=== PATIENT | female | born 1940 | race Caucasian/White ===

== ENCOUNTER → 2021-03-15 11:55 | Outpatient (CLI) | payer MEDICARE, SELFPAY ==
--- NOTE | ~2021-03-15 | XR_ITS ---
EXAMINATION: XR chest 2V DATE: 03/15/2021 12:32 INDICATION: Pacemaker insertion TECHNIQUE: PA and lateral views of the chest are obtained. COMPARISON: None available FINDINGS: The lungs are free of acute opacities. There is no pleural effusion or pneumothorax. The ca rdiomediastinal silhouette is normal. There is moderate thoracic spondylosis. A dual-lead cardiac pac emaker of the left chest wall ends with leads in expected locations. There is an old healed fracture of the left proximal humerus. Healed right-sided rib fractures are also noted. Surgical clips in the right upper quadrant are likely from prior cholecystectomy. IMPRESSION: 1. No acute cardiopulmonary abnormality. Reviewed, dictated and finalized at location A.
== END ==
DX: R06.09 Other forms of dyspnea (principal); Z95.0 Presence of cardiac pacemaker
CPT/HCPCS: 71046

== ENCOUNTER 2022-03-13 10:18 | Emergency (ER) | payer MEDICARE, SELFPAY ==
--- NOTE | ~2022-03-13 | XR_ITS ---
EXAMINATION: XR shoulder RT min 2V DATE: 03/13/2022 10:48 INDICATION: Right shoulder injury. TECHNIQUE: 4 views of right shoulder were obtained. COMPARISON: None. FINDINGS: Bone alignment is normal. No acute fracture. There are old healed fractures of multiple rig ht-sided ribs. There is mild osteoarthritis of glenohumeral joint and acromioclavicular joint. IMPRESSION: 1. Mild polyarticular osteoarthritis. Reviewed, dictated and finalized at location A.
[2022-03-13 10:32] VITALS: BP 140/54; PULSE 60; RESP 18; TEMP 36.3; O2SAT 100
--- NOTE | 2022-03-13 10:47 | ED.UPPEXIN ---
HPI - Extremity Injury (Upper) General Chief Complaint: Extremity Injury, Upper Stated Complaint: Fall Injury/Right Shoulder Time Seen by Provider: 03/13/22 10:47 Source: patient, RN notes reviewed and old records reviewed Mode of arrival: ambulatory Limitations: no limitations History of Present Illness HPI narrative: 81-year-old female who presents to [facility] with complaints of injury to her right shoulder which occurred on the 11 of March when she fell between bed and dresser. Patient reports pain to the AC joint region of her shoulder and the upper arm region with discomfort when moving her arm up or down.Patient states that she has no tingling or numbness to her right arm with strong pulses present to right arm, has full mobility of wrist, elbow, and hand of right extremity. Patient reports that she has been taking Tylenol for her discomfort. MD complaint: injury to: right and shoulder Onset (ago): day(s) (2) Place: home Treatments prior to arrival: other (tylenol) Related Data Home Medications Medication Instructions Recorded Confirmed amitriptyline 25 mg tablet tablet 03/13/22 amlodipine 10 mg tablet tablet 03/13/22 ascorbic acid (vitamin C) 100 mg 100 mg PO DAILY 03/13/22 03/13/22 tablet cholecalciferol (vitamin D3) 10 03/13/22 mcg (400 unit) tablet latanoprost 0.005 % eye drops drp 03/13/22 levothyroxine 100 mcg tablet tablet 03/13/22 lisinopril 20 mg tablet tablet 03/13/22 magnesium tablet PO 03/13/22 omega 0-rnr-xov-fish oil 1,000 mg cap PO 03/13/22 (120 mg-180 mg) capsule pravastatin 10 mg tablet tablet 03/13/22 Allergies Allergy/AdvReac Type Severity Reaction Status Date / Time gemfibrozil Allergy Intermediate Hives / Verified 04/28/16 10:38 Red Face Review of Systems Review of Systems: CONSTITUTIONAL: Denies fever, chills, or sweats. EYES: Denies visual changes, redness, or discharge. ENT: Denies rhinorrhea, congestion, sore throat, or otalgia. CARDIOVASCULAR: Denies chest pain, palpitations, or edema. RESPIRATORY: Denies cough or dyspnea. GASTROINTESTINAL: Denies abdominal pain, nausea, vomiting, or diarrhea. GENITOURINARY: Denies dysuria or hematuria. SKIN: Denies rash or itching. MUSCULOSKELETAL: Denies back pain,positive for right shoulder pain, or myalgia. NEUROLOGIC: Denies headache, numbness, or weakness. PSYCHIATRIC: Denies anxiety or depression. [facility] Past Medical History Medical History (Updated 03/14/22 @ 11:19 by Queta Egan NP) Elevated cholesterol Hypertension Hypothyroid IBS (irritable bowel syndrome) Pacemaker Surgical History Surgical History (Updated 03/14/22 @ 11:16 by Queta Egan NP) H/O shoulder surgery left related to fracture H/O: hysterectomy Hx of cholecystectomy Social History Social History (Updated 03/14/22 @ 11:13 by Queta Egan NP) Smoking status: Never smoker Alcohol intake: current Alcohol use details: rare social Substance use: never Living arrangements: with family Occupation/Education: retired Gender identity (if verbalized by the patient): Female Comments At time of signature agree with nursing documentation of past medical, surgical, social and family history. There is no relevant family history pertinent to presenting complaint Exam Narrative: GENERAL: Well-appearing, well-nourished, and in no acute distress. HEAD: Normocephalic, atraumatic. EYES: PERRLA and EOMI. ENT: Nares clear, no rhinorrhea or epistaxis. Mucous membranes moist.TM's normal with good light reflex, throat pink with no lesions exudates or tonsil swelling NECK: Supple.no lymphadenopathy CHEST: Clear to auscultation. No respiratory distress.SAO2 100% on room air HEART: Regular rate and rhythm. No murmur heard. Normal peripheral pulses. ABDOMEN: Soft, nontender, nondistended, normal active bowel sounds. EXTREMITIES: Normal range of motion. No edema.Exception noted to right shoulder and upper arm region with tenderness
== END 2022-03-13 11:08 | disposition home or self-care (01) ==
PROVIDERS: Emergency Provider Registered Nurse
DX: S40.011A Contusion of right shoulder, initial encounter (principal); W19.XXXA Unspecified fall, initial encounter; E78.00 Pure hypercholesterolemia, unspecified; I10 Essential (primary) hypertension; E03.9 Hypothyroidism, unspecified; Z95.0 Presence of cardiac pacemaker
CPT/HCPCS: 73030; 99203; G0463

== ENCOUNTER 2023-01-05 17:07 | Emergency (ER) | payer MEDICARE, SELFPAY ==
[2023-01-05 17:16] VITALS: BP 158/54; PULSE 60; RESP 18; TEMP 36.4; O2SAT 100
--- NOTE | 2023-01-05 17:40 | ED.FEMALEGU ---
HPI - Female Genitourinary General Chief complaint: Urogenital-Female Stated complaint: Urinary Problem Time Seen by Provider: 01/05/23 17:42 Source: patient, RN notes reviewed and old records reviewed Mode of arrival: ambulatory Limitations: no limitations History of Present Illness HPI Narrative: 82 year old female presents to [facility] with complaints of urinary frequency,burning with urination and medial lower abdominal discomfort since last night with symptoms increased today. Patient reports no known fevers, chills or sweats, denies any back pain or any CVA tenderness, reports no nausea,vomiting or diarrhea. Patient voices no vaginal discharge or any vaginal itching.Patient reports that she has had past UTI's with last one about 2 years ago. MD elicited complaint: UTI Pertinent past history: other (past UTI) Onset (ago): day(s) (last night) Location of symptoms: suprapubic Severity scale (1-10): 2 Quality of pain: burning Vaginal discharge: none Urinary symptoms: Dysuria and Frequency Related Data Home Medications Medication Instructions Recorded Confirmed amitriptyline 25 mg tablet 25 tablet PO DAILY 03/13/22 01/05/23 amlodipine 10 mg tablet 10 tablet PO DAILY 03/13/22 01/05/23 ascorbic acid (vitamin C) 100 mg 100 mg PO DAILY 03/13/22 01/05/23 tablet cholecalciferol (vitamin D3) 10 10 mcg PO DAILY 03/13/22 01/05/23 mcg (400 unit) tablet latanoprost 0.005 % eye drops See Rx Instructions .Route .COMPLEX 03/13/22 01/05/23 levothyroxine 100 mcg tablet 100 tablet PO DAILY 03/13/22 01/05/23 lisinopril 20 mg tablet 20 tablet PO BID 03/13/22 01/05/23 omega 3-umm-mqy-fish oil 1,000 mg 1 cap PO DAILY 03/13/22 01/05/23 (120 mg-180 mg) capsule pravastatin 10 mg tablet 10 tablet PO DAILY 03/13/22 01/05/23 vitamin E 268 mg (400 unit) capsule 268 mg PO DAILY 01/05/23 01/05/23 Allergies Allergy/AdvReac Type Severity Reaction Status Date / Time gemfibrozil Allergy Intermediate Hives / Verified 01/05/23 17:33 Red Face Review of Systems Review of Systems: CONSTITUTIONAL: Denies fever, chills, or sweats. CARDIOVASCULAR: Denies chest pain, palpitations, or edema. RESPIRATORY: Denies cough or dyspnea. GASTROINTESTINAL: Denies abdominal pain, nausea, vomiting, or diarrhea. GENITOURINARY: Reports dysuria, frequency, urgency. Denies flank pain or visible hematuria. SKIN: Denies rash or itching. MUSCULOSKELETAL: Denies back pain or myalgia. Denies CVA tenderness NEUROLOGIC: Denies headache All systems reviewed & are unremarkable except as noted in HPI and below PMFSH Past Medical History Medical History (Updated 01/07/23 @ 09:39 by Queta Egan NP) Elevated cholesterol Hypertension Hypothyroid IBS (irritable bowel syndrome) Pacemaker Surgical History Surgical History (Updated 03/14/22 @ 11:16 by Queta Egan NP) H/O shoulder surgery left related to fracture H/O: hysterectomy Hx of cholecystectomy Social History Social History (Updated 03/14/22 @ 11:13 by Queta Egan NP) Smoking status: Never smoker Alcohol intake: current Alcohol use details: rare social Substance use: never Living arrangements: with family Occupation/Education: retired Gender identity (if verbalized by the patient): Female Comments At time of signature, agree with nursing past medical, surgical, social and family history. There is no relevant family history pertinent to the presenting complaint Exam Narrative: GENERAL: Well-appearing, well-nourished, and in no acute distress. HEAD: Normocephalic, atraumatic. NECK: Supple. no lymphadenopathy CHEST: Clear to auscultation. No respiratory distress.SAO2 100% on room air HEART: Regular rate and rhythm. No murmur heard. Normal peripheral pulses. ABDOMEN: Soft, suprapubic tender, nondistended, normal active bowel sounds. No CVA tenderness EXTREMITIES: Normal range of motion. No edema. SKIN: Warm, dry, no rash. NEURO: No focal deficits. Alert and orien
== END 2023-01-05 17:50 | disposition home or self-care (01) ==
PROVIDERS: Emergency Provider Registered Nurse
DX: N39.0 Urinary tract infection, site not specified (principal); E78.00 Pure hypercholesterolemia, unspecified; I10 Essential (primary) hypertension; E03.9 Hypothyroidism, unspecified; Z95.0 Presence of cardiac pacemaker
CPT/HCPCS: 81003; 87086; 87088; 99213; G0463

== ENCOUNTER 2024-08-08 14:28 | Emergency (ER) | payer MEDICARE, SELFPAY ==
--- NOTE | ~2024-08-08 | XR_ITS ---
EXAMINATION: XR shoulder LT min 2V DATE: 08/08/2024 15:04 INDICATION: Left shoulder pain. Fall. TECHNIQUE: 5 views of left shoulder were obtained. COMPARISON: None. FINDINGS: There is a nondisplaced transverse fracture involving distal left clavicle. There is an old fracture deformity of humeral head. There is severe osteoarthritis of glenohumeral joint and acromio clavicular joint. A left chest pacer is noted. IMPRESSION: 1. Nondisplaced transverse fracture of distal left clavicle. 2. Severe polyarticular osteoarthritis. Reviewed, dictated and finalized at location A. TECHNICIAN
[2024-08-08 14:35] VITALS: BP 151/72; PULSE 76; RESP 16; TEMP 36.4; O2SAT 100
--- NOTE | 2024-08-08 14:40 | ED.FALL ---
HPI - Fall General Chief Complaint: Fall Stated Complaint: Fall Injury/Left Shoulder/Left Hip Time Seen by Provider: 08/08/24 14:40 Source: patient, RN notes reviewed and old records reviewed Mode of arrival: ambulatory Limitations: no limitations History of Present Illness HPI Narrative: 83-year-old female presents [facility] post fall. fall yesterday. Patient reports left shoulder pain and left hip pain, pain to the top and anterior portion of the left shoulder. Bruising noted to the top of the shoulder. Decreased range of motion secondary to pain. Has full range of motion of the elbow and wrist. 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 Positive radial pulse. walks with normal gait. Patient denies any back pain. No midline tenderness. Denies hitting head. Denies loss of consciousness. Related Data Home Medications Medication Instructions Recorded Confirmed amitriptyline 25 mg tablet 25 tablet PO DAILY 03/13/22 01/05/23 amlodipine 10 mg tablet 10 tablet PO DAILY 03/13/22 01/05/23 ascorbic acid (vitamin C) 100 mg 100 mg PO DAILY 03/13/22 01/05/23 tablet cholecalciferol (vitamin D3) 10 10 mcg PO DAILY 03/13/22 01/05/23 mcg (400 unit) tablet latanoprost 0.005 % eye drops See Rx Instructions .Route .COMPLEX 03/13/22 01/05/23 levothyroxine 100 mcg tablet 100 tablet PO DAILY 03/13/22 01/05/23 lisinopril 20 mg tablet 20 tablet PO BID 03/13/22 01/05/23 omega 9-fui-kgl-fish oil 1,000 mg 1 cap PO DAILY 03/13/22 01/05/23 (120 mg-180 mg) capsule pravastatin 10 mg tablet 10 tablet PO DAILY 03/13/22 01/05/23 vitamin E 268 mg (400 unit) capsule 268 mg PO DAILY 01/05/23 01/05/23 Allergies Allergy/AdvReac Type Severity Reaction Status Date / Time gemfibrozil Allergy Intermediate Hives / Verified 01/05/23 17:33 Red Face Review of Systems Review of Systems: All systems reviewed & are unremarkable except as noted in HPI and below Constitutional: Constitutional: Reports no additional constitutional complaints ENT: Reports system reviewed and no additional complaints, except as documented Cardiovascular: Cardiovascular: Reports no additional cardiovascular complaints, Denies chest pain and Denies dyspnea Respiratory: Respiratory: Reports no additional respiratory complaints, Denies chest congestion, Denies cough and Denies dyspnea Gastrointestinal: Gastrointestinal: Reports no additional gastrointestinal complaints, Denies abdominal pain, Denies nausea and Denies vomiting Musculoskeletal: Musculoskeletal: Reports as per HPI Integumentary/Breasts: Skin/Breast: Reports system reviewed and no additional complaints, except as docu PMFSH Past Medical History Medical History Elevated cholesterol Hypertension Hypothyroid IBS (irritable bowel syndrome) Pacemaker Surgical History Surgical History H/O shoulder surgery left related to fracture H/O: hysterectomy Hx of cholecystectomy Social History Social History Smoking status: Never smoker Alcohol intake: current Alcohol use details: rare social Substance use: never Living arrangements: with family Occupation/Education: retired Gender identity (if verbalized by the patient): Female Comments At the time of my signature, I reviewed and agree with the nursing past medical, surgical, social, and family history. There is no relevant family history pertinent to the patient complaint. Exam Const: General: cooperative, healthy appearing, comfortable, no acute distress, well developed, alert and well nourished Nutritional Appearance: well nourished Orientation/consciousness: patient oriented x3 Limitations: no limitations HENMT: Head: normal to inspection Ears: hearing grossly normal bilaterally and external ears normal Face/Nose/Sinus: Normal external nose present, normal facial exam and face symmetric Face and sinus: normal facial exam and face symmetric Eyes: General: appearance normal, both eyes and all related structures Alignment and Position: alignment normal Periorbital: periorbital findings normal Neck: Neck: normal visual inspection, full ROM, no lymphadenopathy and no meningeal signs Chest: Chest palpation & inspection: normal inspection of the chest Resp: Effort & Inspection: normal respiratory effort and able to speak in complete sentences Auscultation: clear to auscultation bilaterally, no crackles, no rales, no rhonchi and no wheezes Cardio: Rate: regular rate Back/Spine/Pelvis: Back: No back tenderness Skin: General skin exam: normal color and no rashes or lesions noted Lesions: no lesions Rashes: no rashes Wounds: no wounds Neuro: General: patient oriented x3, gait normal, tone normal, moves all extremities and no meningeal signs Cognition (Neuro): normal cognition Speech: normal speech Gait exam (Neuro): Normal gait present Extrem: General: normal to inspection, full ROM, capillary refill normal and normal gait Left upper extremity: shoulder/upper arm tenderness (Top of shoulder), swelling of the clavicle, abnormal ROM pain with active ROM and ecchymosis (Top of shoulder); no foreign bodies, no penetrating wound and no deformity, elbow/forearm normal to inspection, wrist normal to inspection and hand normal to inspection, vascular exam radial pulse present and normal capillary refill and normal ROM of fingers Left lower extremity: hip/thigh Details: normal to inspection Psych: Appearance: grossly normal and well kempt Mental Status: mental status grossly normal Speech and movement: Normal speech and movement present and Clear speech present Affect: normal affect Attitude: cooperative Course Course Level of Care: Express Care Visit Vital Signs Vital signs: Vital Signs Temperature 97.6 F 08/08/24 14:35 Pulse Rate 76 08/08/24 14:35 Respiratory Rate 16 08/08/24 14:35 Blood Pressure 151/72 H 08/08/24 14:35 Pulse Oximetry 100 08/08/24 14:35 Oxygen Delivery Room Air 08/08/24 14:35 Temperature 97.6 F 08/08/24 14:35 Pulse Rate 76 08/08/24 14:35 Respiratory Rate 16 08/08/24 14:35 Blood Pressure 151/72 H 08/08/24 14:35 Pulse Oximetry 100 08/08/24 14:35 Oxygen Delivery Room Air 08/08/24 14:35 Reviewed MDM - Fall MDM Narrative Medical decision making narrative: Patient sitting comfortably in exam room. Nontoxic, vitals stable. Patient presents with left hip and left shoulder pain post fall. Walking with a normal gait. Bruising swelling noted to the left shoulder, x-ray showed distal clavicle fracture. Patient placed in sling. Patient appropriate for outpatient treatment with close follow-up. Discharge instructions reviewed with patient, as well as provided in writing per nursing staff. The instructions also include specific and strict return/GO TO THE ER as well as f/u information. All questions have been answered, and the patient deny any further questions with discharge and discharge plan. Some parts of this dictation were generated by voice recognition software and may contain typographical and/or grammatical inaccuracies. Differential Diagnosis Differential diagnosis: Likely dislocation of shoulder region and other (Fracture, contusion) Imaging Data Radiologist's impression: EXAMINATION: XR shoulder LT min 2V DATE: 08/08/2024 15:04 INDICATION: Left shoulder pain. Fall. TECHNIQUE: 5 views of left shoulder were obtained. COMPARISON: None. FINDINGS: There is a nondisplaced transverse fracture involving distal left clavicle. There is an old fracture deformity of humeral head. There is severe osteoarthritis of glenohumeral joint and acromioclavicular joint. A left chest pacer is noted. IMPRESSION: 1. Nondisplaced transverse fracture of distal left clavicle. 2. Severe polyarticular osteoarthritis. Critical Care Time Critical Care Time Critical Care Time: No Discharge Plan Discharge Clinical Impression: Closed fracture of left clavicle, Polyarticular osteoarthritis, Fall Patient Disposition: Home, Self-Care Condition: Stable Instructions: Antibiotic Form, Clavicle Fracture (DC), How to Use a Sling (ED) Additional Instructions: Ice the area every 2-3 hours for 15-20 minutes while awake Take Tylenol as needed for pain Wear the sling at all times. Follow-up with orthopedist in your primary care provider this week Today your blood pressure was 151/72, it is recommended you follow-up with primary care provider to have this rechecked within the next week For new or worsening symptoms please go directly to the emergency room Patient Language: Icelandic Prescriptions: No Action latanoprost 0.005 % drops See Rx Instructions .ROUTE .COMPLEX Rx Instructions: as prescribed lisinopril 20 mg tablet 20 tablet PO BID levothyroxine 100 mcg tablet 100 tablet PO DAILY amitriptyline 25 mg tablet 25 tablet PO DAILY pravastatin 10 mg tablet 10 tablet PO DAILY amlodipine 10 mg tablet 10 tablet PO DAILY ascorbic acid (vitamin C) 100 mg Tablet 100 mg PO DAILY cholecalciferol (vitamin D3) 10 mcg (400 unit) Tablet 10 mcg PO DAILY omega 2-ian-aaf-fish oil 1,000 mg (120 mg-180 mg) capsule 1 cap PO DAILY vitamin E 268 mg (400 unit) Capsule 268 mg PO DAILY Follow-up/Referrals: Wu Hernandes MD [Physician] - 3 Days (Clavicle fracture) PHYSICIAN NOT ON STAFF,NONSTAFF [Primary Care Provider] - Time of Disposition: 15:20
== END 2024-08-08 15:33 | disposition home or self-care (01) ==
PROVIDERS: Emergency Provider Nurse Practitioner
DX: S42.035A Nondisplaced fracture of lateral end of left clavicle, initial encounter for closed fracture (principal); W19.XXXA Unspecified fall, initial encounter; M19.012 Primary osteoarthritis, left shoulder; E78.00 Pure hypercholesterolemia, unspecified; I10 Essential (primary) hypertension; E03.9 Hypothyroidism, unspecified; Z95.0 Presence of cardiac pacemaker
CPT/HCPCS: 73030; 99214; A4565; G0463

== ENCOUNTER 2024-10-24 15:19 | Emergency (ER) | payer MEDICARE, SELFPAY ==
--- OUTSIDE RECORDS SUMMARY | 2024-10-24 15:22 | XMS_ITS | Clinical Summary ---
Author Organization [facility] Address [address] [place] [address] Care Team Providers Care Enforcement Manager Name Role Phone Preeti Campa MD Primary Care Provider [phone] Phyllis Campa MD Unavailable Unavailable Source Comments [facility],non-owned Affiliates and Associated Physician Practices is amultiple site organization consisting of ambulatory clinics and hospital sitesin [place], [place], [place] and [place]. This disclosure is being madepursuant to the Care Everywhere program and may not contain all information available regarding this patient. Last updated 18.[facility] Allergies Active Allergy Reactions Criticality Noted Date Comments Gemfibrozil Rash Low 10/20/2015 Medications * Be aware that medications may not be up to date on this document. Alwaysverify current medications with the patient. Medication Sig Dispensed Refills Start Date End Date Status levothyroxine (SYNTHROID) 75 MCG tablet Take 75 mcg by mouth daily before breakfast Active lisinopril (PRINIVIL; ZESTRIL) 40 MG tablet Take 40 mg by mouth once daily Active amitriptyline (ELAVIL) 25 MG tablet Take 25 mg by mouth at bedtime Active psyllium (METAMUCIL) 58.6 % powder Take 1 Packet by mouth once daily Active aspirin EC (ECOTRIN) 81 MG tablet Take 81 mg by mouth once daily Active Vitamin E 400 UNITS Activ e [place]-3 Fatty Acids (FISH OIL DELAYED RELEASE) 1000 MG capsule Take 2 capsules by mouth daily with food Active fluticasone propionate (FLONASE) 50 MCG/ACT nasal spray [place] 1 spray into each nostril 2 times daily 1 bottles 10/29/2018 Active NIACIN, ANTIHYPERLIPIDEMIC, PO Active Family History Medical History Relation Name Comments Heart Failure Father Heart Failure Mother Relation Name Status Comments Father Mother Social History Tobacco Use Types Packs/Day Years Used Date Smoking Tobacco: Never Smokeless Tobacco: Never Tobacco Cessation:Counseling Given: Yes Sex and Gender Information Value Date Recorded Sex Assigned at Not on file Gender Identity Not on file Sexual Orientation Not on file Last Filed Vital Signs Vital Sign Reading Time Taken Comments Blood Pressure 118/68 12/02/2018 9:01 AM CDT Pulse 94 12/02/2018 9:01 AM CDT Temperature 36.4 ??C (97.6 ??F) 12/02/2018 9:01 AM CD T Respiratory Rate 16 12/02/2018 9:01 AM CDT Oxygen Saturation 96% 12/02/2018 9:01 AM CDT Inhaled Oxygen Concentration - - Weight 76.2 kg (168 lb) 12/02/2018 9:01 AM CDT Height 162.6 cm (5' 4 ) 12/02/2018 9:01 AM CDT Body Mass Index 28.84 12/02/2018 9:01 AM CDT Plan of Treatment Health Maintenance Due Date Last Done Comments BONE DENSITY TESTING 1940 MEDICARE AWV ? 12 MONTHS 1940 DTAP/TDAP/TD VACCINES (1 - Tdap) 1961 PNEUMOCOCCAL VACCINE 50+ (1 of 1 - PCV) 1992 ZOSTER VACCINE (1 of 2) 1992 Respiratory Syncytial Virus (RSV) Vaccine Pt: or over 60 yrs (1 - 1-dose 75+ series) 2017 COVID-19 VACCINE ( - 2023-2 5 season) 2024 INFLUENZA VACCINE (#1) 2024 DEPRESSION SCREENING 09/24/2024 HEPATITIS B VACCINE Aged Out No longe r eligible based on patient's age to complete this topic HIB VACCINE Aged Out No longer eligi ble based on patient's age to complete this topic HPV VACCINE Aged Out No longer eligi ble based on patient's age to complete this topic MENINGOCOCCAL (Group B) VACCINE Aged Out No longer eligible based on patient's age to complete this topic MENINGOCOCCAL VACCINE Aged Out No cyrus marcy eligible based on patient's age to complete this topic Care Teams Enforcement Manager Relationship Specialty [place] [id number] [place] [id number] PCP - General Internal Medicine 09/21/17 [place] [id number] [place] [id number] Family Medicine 09/21/17
--- OUTSIDE RECORDS SUMMARY | 2024-10-24 15:22 | XMS_ITS | Referral Summary ---
Author Organization [facility] Address [address] [place] [address] Care Team Providers Care Gun Striper Name Role Phone Padmini Lauren MD, Maynor Curiel Unavailable Tito Steinberg MD Unavailable Melanie Oconnor NP Primary Care Provider Vicky Cummins MD Unavailable Liz Burns NP Unavailable Encounters Date Type Department Care Team Description 10/24/2024 Nurse Triage [facility] at [place] [address] [facility] [address] [place] [address] Melanie Oconnor NP 08/11/2024 Telephone [facility] Orthopedics and Sports Medicine [address] [facility] [address] [place] [address] Marco Jefferson MD 08/08/2024 Ancillary Procedure [facility] Outside Films from Last 3 Months Allergies Active Allergy Reactions Criticality Noted Date Comments Gemfibrozil Rash Medium 10/20/2015 Medications calcium carbonate (CALCIUM 600 ORAL) Take 1 Caplet by mouth Active omega-3 fatty acids 1,000 mg capsule Take 2 capsules by mouth daily 1 Active cholecalciferol (VITAMIN D-3) 5,000 unit capsule Take 1 capsule (5,000 Units total) by mouth daily Active timolol (TIMOPTIC) 0.5 % ophthalmic solution 1 drop 2 (two) times a day 2 Active triamcinolone (KENALOG) 0.1 % ointmentIndication s:Rash of body Twice daily as needed for itchy/dry skin for up to 2 weeks at a time. 30 g 1 3 Active amitriptyline (ELAVIL) 25 mg tablet TAKE 1 TABLET EVERY NIGHT 90 tablet 3 3 Active amiodarone (PACERONE) 200 mg tablet Take 1 tablet (200 mg total) by mouth daily 30 tablet 11 3 Active pravastatin (PRAVACHOL) 10 mg tablet TAKE 1 TABLET EVERY DAY 90 tablet 3 4 Active rivaroxaban (XARELTO) 20 mg tablet Take 1 tablet (20 mg total) by mouth daily with dinner 4 Active metoprolol XL (TOPROL-XL) 25 mg extended release tablet Take 1 tablet (25 mg total) by mouth daily 30 tablet 11 4 12/14/19 25 Active loperamide (IMODIUM) 2 mg capsule Take 1 capsule (2 mg total) by mouth 4 (four) times a day as needed for diarrhea for up to 7 days 28 capsule 4 Active ondansetron ODT (ZOFRAN-ODT) 4 mg disintegrating tablet Take 1 tablet (4 mg total) by mouth every 8 (eight) hours as needed for nausea or vomiting for up to 15 doses 15 tablet 4 Active psyllium husk (MetamuciL) 3.4 gram/5.4 gram powder Metamucil 3.4 gram/5.4 gram powder 8 Active furosemide (LASIX) 20 mg tablet Take 1 tablet (20 mg total) by mouth daily 4 Active losartan (COZAAR) 50 mg tablet Take 1 tablet (50 mg total) by mouth daily Active levothyroxine (SYNTHROID) 125 mcg tabletIndications: Acquired hypothyroidism TAKE 1 TABLET CUSTOMS APPRAISER BEFORE BREAKFAST 90 tablet 3 4 Active vitamin E (SOLUVITA-E) 22.5 mg/mL (50 units/mL) drops Take 1 tablet by mouth Active clobetasoL (TEMOVATE) 0.05 % external solution 4 Active Active Problems Problem Noted Date Diagnosed Date Psoriasis 05/05/2024 Assessment & Plan (05/05/2024 2:26 PM CDT): -chronic, not at/near goal -patient can not afford Tremfya which was ordered by Dermatology -advised patient to follow up with Dermatology for further recommendations Weakness generalized 12/17/2023 Assessment & Plan (12/19/2023 12:42 PM CDT): -new complaint, acute -associated with recent hospitalization due to acute colitis -patient has orders for home health with physical therapy -patient denies any falls -continue current treatment plan Colitis 12/11/2023 Assessment & Plan (12/19/2023 12:41 PM CDT): -new diagnosis, resolving -patient had presented to emergency department with complaints of bloody stools and admitted for a treatment of acute colitis -patient was treated with ceftriaxone, Omnicef and Flagyl -patient reports a follow up visit her colitis is resolving -patient reports some blood in 1 bowel movement since leaving hospital, but she states she is feeling much better -patient has follow up appointment with GI for colonoscopy in 6-8 weeks -patient encouraged if she begins having bloody stools to reach out to the GI team and potentially go to the emergency department for re-evaluation Osteopenia of multiple sites 11/16/2023 Assessment & Plan (05/05/2024 2:26 PM CDT): -chronic, stable -last bone density completed 11/14/2023 -continue on calcium and vitamin-D supplements daily Chronic kidney disease, stage 3b 11/05/2023 Assessment & Plan (05/05/2024 2:23 PM CDT): -chronic, stable -Discussed/ordered labs -continue working on blood pressure control -drink plenty of water and avoid NSAIDs -continue seeing Nephrology Assessment & Plan (11/05/2023 2:38 PM CREATIVE MANAGER): -chronic, slightly worsening -Discussed/ordered labs -continue working with Cardiology to control blood pressure -drink plenty of water and avoid NSAIDs -if numbers continue to worsen, we will refer to Nephrology Diabetes mellitus, type 2 06/20/2023 Assessment & Plan (05/05/2024 2:25 PM CDT): Condition is stable Personally reviewed A1c 6.2% Lab Results Component Value Date HGBA1C 6.2 (H) 12/28/2023 HGBA1C 6.2 (H) 12/11/2023 HGBA1C 5.8 (H) 11/01/2023 Maintenance Diabetic (Monofilament) foot exam - completed today Annual dilated eye exams. Recommend completing Annual Urine microalbumin/creatinine ratio - ordered today Immunizations: Recommend Shingrix vaccinations BP management B/P today- 147/83 fair Patient is currently is on an HARINI/ARB losartan 50 mg daily Goal blood pressure is <140/90, long-term blood pressure goal is to be as close to 120/80 as possible. Dyslipidemia management Personally reviewed most recent LDL as shown below. Patient is on a statin cholesterol lowering medication pravastatin Goal of less than 70 Lab Results Component Value Date LDLCALC 90 02/24/2022 Diabetes Complications History of macrovascular disease (CVA, MD, PVD) is Present. 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 Discussed eating a healthy low carb diet, include fresh fruits and vegetables daily. Diabetic education and nutritional counseling available if you have not had this before or annually. Encouraged to try moving at least a total of 30 minutes/day. Just move more. Instructed to wash, dry, lotion and check feet daily. Instructed to notify office if blood sugars are less than 80 or greater than 250 for 3 days Paroxysmal atrial fibrillation (CMS/HCC) 023 Assessment & Plan (05/05/2024 2:23 PM CDT): -chronic, stable -Discussed/ordered labs -continue on amiodarone 200 mg daily and Xarelto 20 mg daily -continue seeing Cardiology Assessment & Plan (08/30/2023 4:04 PM CREATIVE MANAGER): Acute problem- this is a new problem recently diagnosed Following cardiology Continue amiodarone 200 mg daily, Metoprolol XL 50 mg daily Xarelto 20 mg daily Follow up with cardiology as scheduled Continue to monitor Assessment & Plan (06/12/2023 1:21 PM CDT): - recent diagnosis - anticoagulated with Xarelto - currently on amiodarone - recently started from hospitalization - also on metoprolol XL 50 mg daily - follows and managed by Cardiology - Dr. Washington, has an appointment in a week - continue current management Echo 06/16 Conclusions: Irregular rhythm. Normal global left ventricular systolic function. Ejection fraction is visually estimated at 65 to 70 %. There is mild enlargement of left atrium. Mild mitral annular calcification. Mild mitral valve regurgitation. Mild aortic stenosis. Peak velocity AOV of 2.2 m/sec. Peak gradient of 20.0 mmHg. Aortic cusps appear mildly sclerotic. Mild aortic valve regurgitation. Normal structure of the tricuspid valve. Trivial regurgitation in the tricuspid valve. Technically difficult study with limited views. Lab Results Component Value Date TSH 2.04 06/04/2023 Lab Results Component Value Date GLUCOSE 309 (H) 06/05/2023 CALCIUM 9.2 06/05/2023 SODIUM 135 06/05/2023 POTASSIUM 4.1 06/07/2023 CO2 23 06/05/2023 CHLORIDE 99 06/05/2023 BUNSER 10 06/05/2023 CREATININE 0.88 06/05/2023 Vitamin D deficiency 03/01/2022 Assessment & Plan (05/05/2024 2:22 PM CDT): -chronic, stable -Discussed/ordered labs -continue on vitamin D3 5000 units daily Assessment & Plan (11/05/2023 2:37 PM CREATIVE MANAGER): -chronic, stable -Discussed/ordered labs -continue on vitamin D3 5000 units daily Assessment & Plan (08/30/2023 3:59 PM CREATIVE MANAGER): Chronic problem-stable Continue vitamin D3 5,000 international units daily Encouraged to follow heart healthy, low sugar diet Encouraged to increase activity to at least 150 min/week Vitamin D 74 Assessment & Plan (03/02/2023 7:14 AM CDT): HPI: Condition is stable A&P: Discussed/ordered labs, encouraged healthy, low carbohydrate lifestyle and at least 150min/week of exercise, continue on vitamin D3 5000 units daily Assessment & Plan (08/29/2022 10:30 AM CREATIVE MANAGER): HPI: Condition is stable A&P: Discussed/ordered labs, encouraged healthy, low carbohydrate lifestyle and at least 150min/week of exercise, continue on vitamin D3 5000 unit daily Assessment & Plan (03/01/2022 9:28 AM CDT): HPI: Condition is not at/near goal Patient had been off of vitamin-D A&P: Discussed/ordered labs, encouraged healthy, low carbohydrate lifestyle and at least 150min/week of exercise, Take over the counter vit d3 capsules 5000 units daily-this will be a chcf medication Glaucoma of both eyes 03/01/2022 Assessment & Plan (03/02/2023 7:14 AM CDT): HPI: Condition is stable A&P: Continue seeing Dr. Steinberg at [facility] and using xalatain eyedrops nightly bilaterally Assessment & Plan (08/30/2022 10:50 AM CREATIVE MANAGER): Condition is controlled. Patient is seeing Dr. Steinberg at [facility] Continue using xalatain eyedrops nightly bilaterally Assessment & Plan (03/01/2022 9:31 AM CDT): Sees Dr. Steinberg at [facility]. Using xalatain eye drops nightly bilaterally. Sick sinus syndrome (CMS/HCC) 06/01/2021 Assessment & Plan (11/05/2023 2:37 PM CREATIVE MANAGER): -chronic, stable -Continue seeing Dr. Washington cardiology. -Continue on amiodarone 200 mg daily, losartan 50 mg 2 tablets daily, metoprolol XL 50 mg daily, pravastatin 10 mg daily, Xarelto 20 mg daily Assessment & Plan (03/02/2023 7:15 AM CDT): HPI: Condition is stable A&P: Continue seeing Dr. Washington cardiology. Continue on amlodipine 10 mg daily, aspirin 81 mg daily, lisinopril 20 mg twice daily, fish oil 2 capsules daily, and pravastatin 10 mg daily. Assessment & Plan (08/29/2022 10:29 AM CREATIVE MANAGER): HPI: Condition is stable A&P: Discussed/ordered labs, encouraged healthy, low carbohydrate lifestyle and at least 150min/week of exercise, continue pacemaker checks and seeing Dr. Washington cardiology. Continue on amlodipine 10 mg daily, aspirin 81 mg daily, lisinopril 20 mg twice daily, fish oil 2 capsules daily, and pravastatin 10 mg daily. Assessment & Plan (03/01/2022 9:29 AM CDT): HPI: Condition is stable A&P: Discussed/ordered labs, encouraged healthy, low carbohydrate lifestyle and at least 150min/week of exercise, continue Pacemaker checks and seeing Dr. Washington cardiology. continue on amlodipine 10 mg daily, aspirin 81 mg daily, lisinopril 20 mg twice daily, fish oil 2 capsules daily, pravastatin 10 mg daily Assessment & Plan (09/01/2021 9:52 AM CREATIVE MANAGER): HPI: Condition is stable A&P: Discussed/ordered labs, encouraged healthy, low carbohydrate lifestyle and at least 150min/week of exercise, continue with pacemaker checks and seeing Dr. Washington (cardiology). Pt dues for pacemaker check and echocardiogram in November 2021. This only started last November with low heart rate, had pacemaker placed February 2021. Presence of cardiac pacemaker 03/14/2021 Overview (09/01/2021): This only started last November with low heart rate, had pacemaker placed February 2021. Pt has biotronik pacemaker. Scanned image of her card was placed in media file Assessment & Plan (08/30/2023 3:59 PM CREATIVE MANAGER): Chronic problem Pacemaker present to left upper chest wall Follow up with cardiology as scheduled Assessment & Plan (03/02/2023 7:15 AM CDT): Biotronik pacemaker placed February 2021 HPI: Condition is stable A&P: Continue seeing Dr. Padmini waterman. Continue on amlodipine 10 mg daily, aspirin 81 mg daily, lisinopril 20 mg twice daily, fish oil 2 capsules daily, and pravastatin 10 mg daily. Assessment & Plan (08/29/2022 10:29 AM CREATIVE MANAGER): Biotronik pacemaker placed February 2021 HPI: Condition is stable A&P: Discussed/ordered labs, encouraged healthy, low carbohydrate lifestyle and at least 150min/week of exercise, continue pacemaker checks and seeing Dr. Washington cardiology. Continue on amlodipine 10 mg daily, aspirin 81 mg daily, lisinopril 20 mg twice daily, fish oil 2 capsules daily, and pravastatin 10 mg daily. Assessment & Plan (03/01/2022 6:58 AM CDT): Biotronik pacemaker placed in February 2021 HPI: Condition is stable A&P: Discussed/ordered labs, encouraged healthy, low carbohydrate lifestyle and at least 150min/week of exercise, continue Pacemaker checks and seeing Dr. Washington cardiology. continue on amlodipine 10 mg daily, aspirin 81 mg daily, lisinopril 20 mg twice daily, fish oil 2 capsules daily, pravastatin 10 mg daily Assessment & Plan (09/01/2021 9:52 AM CREATIVE MANAGER): This only started last November with low heart rate, had pacemaker placed February 2021. Dyspnea on exertion 02/09/2021 Assessment & Plan (11/05/2023 2:35 PM CREATIVE MANAGER): -chronic, stable -Continue seeing Dr. Washington cardiology. -Continue on amiodarone 200 mg daily, losartan 50 mg 2 tablets daily, metoprolol XL 50 mg daily, pravastatin 10 mg daily, Xarelto 20 mg daily Assessment & Plan (03/02/2023 7:15 AM CDT): HPI: Condition is stable A&P: Continue seeing Dr. Washington cardiology. Continue on amlodipine 10 mg daily, aspirin 81 mg daily, lisinopril 20 mg twice daily, fish oil 2 capsules daily, and pravastatin 10 mg daily. Assessment & Plan (08/29/2022 10:29 AM CREATIVE MANAGER): HPI: Condition is stable A&P: Discussed/ordered labs, encouraged healthy, low carbohydrate lifestyle and at least 150min/week of exercise, continue pacemaker checks and seeing Dr. Washington cardiology. Continue on amlodipine 10 mg daily, aspirin 81 mg daily, lisinopril 20 mg twice daily, fish oil 2 capsules daily, and pravastatin 10 mg daily. Assessment & Plan (03/01/2022 9:30 AM CDT): HPI: Condition is Stable, sometimes if she walks fast she has trouble. If she stops and rests she recovers well. A&P: Discussed/ordered labs, encouraged healthy, low carbohydrate lifestyle and at least 150min/week of exercise, continue Pacemaker checks and seeing Dr. Washington cardiology. continue on amlodipine 10 mg daily, aspirin 81 mg daily, lisinopril 20 mg twice daily, fish oil 2 capsules daily, pravastatin 10 mg daily Assessment & Plan (09/01/2021 9:52 AM CREATIVE MANAGER): HPI: Condition is stable A&P: Discussed/ordered labs, encouraged healthy, low carbohydrate lifestyle and at least 150min/week of exercise, continue with pacemaker checks and seeing Dr. Washington (cardiology). Pt dues for pacemaker check and echocardiogram in November 2021. This only started last November with low heart rate, had pacemaker placed February 2021. Recurrent UTI 01/31/2021 Assessment & Plan (11/05/2023 2:36 PM CREATIVE MANAGER): -chronic, stable -Discussed/ordered labs -patient reports she is no longer seeing Urology. Offered new referral, but patient declines at this time Assessment & Plan (03/02/2023 7:18 AM CDT): HPI: Condition is stable A&P: Discussed/ordered labs, encouraged healthy, low carbohydrate lifestyle and at least 150min/week of exercise, continue seeing Aneta Campos NP urology as needed. Assessment & Plan (08/30/2022 10:40 AM CREATIVE MANAGER): HPI: Condition is stable A&P: Discussed/ordered labs, encouraged healthy, low carbohydrate lifestyle and at least 150min/week of exercise, continue seeing Aneta Campos NP urology as needed. Patient is not a candidate for surgery. Assessment & Plan (03/01/2022 7:02 AM CDT): HPI: Condition is not at/near goal A&P: Discussed/ordered labs, encouraged healthy, low carbohydrate lifestyle and at least 150min/week of exercise, continue Follow-up with Aneta Campos NP Urology. Patient is not a candidate for surgery. Assessment & Plan (09/01/2021 10:11 AM CREATIVE MANAGER): HPI: Condition is not at/near goal A&P: Discussed/ordered labs, encouraged healthy, low carbohydrate lifestyle and at least 150min/week of exercise, pt saw specialist and is not a candidate for surgery. Pt is established with deb Eaton. 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 Washington cardiology. -Continue on amiodarone 200 mg daily, losartan 50 mg 2 tablets daily, metoprolol XL 50 mg daily, pravastatin 10 mg daily, Xarelto 20 mg daily Assessment & Plan (03/02/2023 7:17 AM CDT): HPI: Condition is stable A&P: Continue seeing Dr. Washington cardiology. Continue on amlodipine 10 mg daily, aspirin 81 mg daily, lisinopril 20 mg twice daily, fish oil 2 capsules daily, and pravastatin 10 mg daily. Assessment & Plan (08/29/2022 10:25 AM CREATIVE MANAGER): HPI: Condition is stable A&P: Discussed/ordered labs, encouraged healthy, low carbohydrate lifestyle and at least 150min/week of exercise, continue pacemaker checks and seeing Dr. Washington cardiology. Continue on amlodipine 10 mg daily, aspirin 81 mg daily, lisinopril 20 mg twice daily, fish oil 2 capsules daily, and pravastatin 10 mg daily. Assessment & Plan (03/01/2022 7:01 AM CDT): HPI: Condition is stable A&P: Discussed/ordered labs, encouraged healthy, low carbohydrate lifestyle and at least 150min/week of exercise, continue Pacemaker checks and seeing Dr. Washington cardiology. continue on amlodipine 10 mg daily, aspirin 81 mg daily, lisinopril 20 mg twice daily, fish oil 2 capsules daily, pravastatin 10 mg daily Assessment & Plan (09/01/2021 10:08 AM CREATIVE MANAGER): HPI: Condition is stable A&P: Discussed/ordered labs, encouraged healthy, low carbohydrate lifestyle and at least 150min/week of exercise, continue with pacemaker checks and seeing Dr. Washington (cardiology). Pt dues for pacemaker check and echocardiogram in November 2021. This only started last November with low heart rate, had pacemaker placed February 2021. Hyperlipidemia 07/10/2018 Assessment & Plan (05/05/2024 2:22 PM CDT): -chronic, stable - Discussed/ordered labs - continue on fish oil 2000 mg daily and pravastatin 10 mg daily. Assessment & Plan (11/05/2023 2:35 PM CREATIVE MANAGER): -chronic, stable - Discussed/ordered labs - continue on fish oil 2000 mg daily and pravastatin 10 mg daily. Assessment & Plan (08/30/2023 4:07 PM CREATIVE MANAGER): Chronic problem-improving HDL 44 Trigs 198 Continue Pravastatin 10 mg nightly Continue to monitor Encouraged to follow heart healthy diet Encouraged to increase activity to at least 150 min/week Assessment & Plan (03/02/2023 7:16 AM CDT): HPI: Condition is stable A&P: Discussed/ordered labs, encouraged healthy, low carbohydrate lifestyle and at least 150min/week of exercise, continue on fish oil 2000 mg daily and pravastatin 10 mg daily. Assessment & Plan (08/30/2022 10:42 AM CREATIVE MANAGER): HPI: Condition is stable A&P: Discussed/ordered labs, encouraged healthy, low carbohydrate lifestyle and at least 150min/week of exercise, continue on fish oil 2000 mg daily and pravastatin 10 mg daily. Increase exercise. Assessment & Plan (03/01/2022 7:00 AM CDT): HPI: Condition is stable A&P: Discussed/ordered labs, encouraged healthy, low carbohydrate lifestyle and at least 150min/week of exercise, continue on Fish oil 2000 mg daily, pravastatin 10 mg daily, increase exercise Assessment & Plan (09/01/2021 10:03 AM CREATIVE MANAGER): HPI: Condition is improving, but not at goal A&P: Discussed/ordered labs, encouraged healthy, low carbohydrate lifestyle and at least 150min/week of exercise, continue on fish oil 2000 mg daily, pravastatin 10mg daily, increase exercise Glaucoma suspect of both eyes 10/29/2017 Fatty liver 11/16/2015 Assessment & Plan (11/05/2023 2:35 PM CREATIVE MANAGER): -chronic, stable -Discussed/ordered labs -keep weight under tight control. Assessment & Plan (03/02/2023 7:17 AM CDT): HPI: Condition is stable A&P: Discussed/ordered labs, encouraged healthy, low carbohydrate lifestyle and at least 150min/week of exercise, keep weight under tight control. Assessment & Plan (08/29/2022 10:26 AM CREATIVE MANAGER): HPI: Condition is stable A&P: Discussed/ordered labs, encouraged healthy, low carbohydrate lifestyle and at least 150min/week of exercise, keep weight under tight control. Assessment & Plan (03/01/2022 7:01 AM CDT): HPI: Condition is stable A&P: Discussed/ordered labs, encouraged healthy, low carbohydrate lifestyle and at least 150min/week of exercise, Keep weight under tight control Assessment & Plan (09/01/2021 10:07 AM CREATIVE MANAGER): HPI: Condition is stable A&P: Discussed/ordered labs, encouraged healthy, low carbohydrate lifestyle and at least 150min/week of exercise, continue on low fat, low carb diet, keep weight under control Optic cupping 07/28/2015 Pseudophakia 07/20/2014 Cystocele with prolapse 10/31/2010 Assessment & Plan (11/05/2023 2:35 PM CREATIVE MANAGER): -chronic, stable -Discussed/ordered labs -patient reports she is no longer seeing Urology. Offered new referral, but patient declines at this time Assessment & Plan (03/02/2023 7:18 AM CDT): HPI: Condition is stable A&P: Discussed/ordered labs, encouraged healthy, low carbohydrate lifestyle and at least 150min/week of exercise, continue seeing Aneta Campos NP urology as needed. Patient is not a candidate for surgery Assessment & Plan (08/30/2022 10:40 AM CREATIVE MANAGER): HPI: Condition is stable A&P: Discussed/ordered labs, encouraged healthy, low carbohydrate lifestyle and at least 150min/week of exercise, continue seeing Aneta Campos NP urology as needed. Patient is not a candidate for surgery. Assessment & Plan (03/01/2022 7:02 AM CDT): HPI: Condition is not at/near goal A&P: Discussed/ordered labs, encouraged healthy, low carbohydrate lifestyle and at least 150min/week of exercise, continue Follow-up with Aneta Campos NP Urology. Patient is not a candidate for surgery. Assessment & Plan (09/01/2021 10:11 AM CREATIVE MANAGER): HPI: Condition is not at/near goal A&P: Discussed/ordered labs, encouraged healthy, low carbohydrate lifestyle and at least 150min/week of exercise, pt saw specialist and is not a candidate for surgery. Pt is established with Aneta Campos, urology. Please f/u with her as needed Primary hypertension 07/12/2009 Assessment & Plan (05/05/2024 2:23 PM CDT): -chronic, not at goal- elevated in office today -Continue seeing Dr. Washington cardiology. -Continue on amiodarone 200 mg daily, losartan 50 mg daily, metoprolol XL 25 mg daily, pravastatin 10 mg daily, Xarelto 20 mg daily, and furosemide 20 mg daily -advised patient to check blood pressure daily for the next week and send me a log of the readings -recommend healthy, low-salt diet Assessment & Plan (12/19/2023 9:49 AM CDT): BP Readings from Last 3 Encounters: 12/17/23 130/74 12/14/23 100/52 11/05/23 155/85 -chronic, well-controlled -patient currently takes metoprolol -patient had previously been taking losartan amlodipine, but during recent hospitalization were discontinued due to blood pressure being low with taking them -today in office patient's blood pressure is adequately controlled -encourage patient to continue monitoring blood pressure regularly and at next office visit we can re-evaluate if hypertension medications need to be added back in -continue current therapy Assessment & Plan (11/05/2023 2:34 PM CREATIVE MANAGER): -chronic, not at goal -Continue seeing Dr. Washington cardiology. -Continue on amiodarone 200 mg daily, losartan 50 mg 2 tablets daily, metoprolol XL 50 mg daily, pravastatin 10 mg daily, Xarelto 20 mg daily Assessment & Plan (08/30/2023 4:09 PM CREATIVE MANAGER): Chronic problem- stable with current regimen BP this visit 140/92, rechecked after rest 138/82 Continue current regimen metoprolol XL 50 mg daily Continue to monitor Follow up with cardiology as scheduled Encouraged to follow heart healthy, low salt diet Recommend DASH diet, heart-healthy lifestyle, exercise. Discussed the risks of hypertension. Assessment & Plan (06/12/2023 1:09 PM CDT): BP Readings from Last 3 Encounters: 06/12/23 124/76 06/07/23 115/72 03/02/23 142/75 - chronic, well controlled - recently discontinues amlodipine 10 mg daily and Lisinopril 20 mg BID during her hospital stay - currently on Metoprolol XL 50 mg daily - follow low salt diet - continue current therapy Assessment & Plan (03/02/2023 7:17 AM CDT): HPI: Condition is stable A&P: Continue on amlodipine 10 mg daily, aspirin 81 mg daily, lisinopril 20 mg twice daily. Continue drinking plenty of water. Assessment & Plan (08/29/2022 10:27 AM CREATIVE MANAGER): HPI: Condition is stable A&P: Discussed/ordered labs, encouraged healthy, low carbohydrate lifestyle and at least 150min/week of exercise, continue on lisinopril 20 mg twice daily, drink plenty of water, blood pressure under tight control, continue aspirin 81 mg daily, amlodipine 10 mg daily. Follow a low-sodium diet Assessment & Plan (03/01/2022 7:01 AM CDT): HPI: Condition is stable A&P: Discussed/ordered labs, encouraged healthy, low carbohydrate lifestyle and at least 150min/week of exercise, continue on Continue on lisinopril 20 mg twice daily, push water, keep blood pressure under tight control, continue aspirin daily, continue on amlodipine, low-sodium diet Assessment & Plan (09/01/2021 10:19 AM CREATIVE MANAGER): HPI: Condition is stable A&P: Discussed/ordered labs, encouraged healthy, low carbohydrate lifestyle and at least 150min/week of exercise, since your bp readings are higher in the mornings, let us change your lisinopril to 20mg twice daily instead of 40mg in the am, push water, keep bp under control. Continue on aspirin daily, continue on amlodipine Low sodium diet Hypothyroidism 07/12/2009 Assessment & Plan (05/05/2024 2:22 PM CDT): -chronic, stable -Discussed/ordered labs - continue on levothyroxine 125 mcg daily Assessment & Plan (11/05/2023 2:35 PM CREATIVE MANAGER): -chronic, stable -Discussed/ordered labs - continue on levothyroxine 112 mcg daily Assessment & Plan (08/30/2023 4:06 PM CREATIVE MANAGER): Chronic problem-not at goal TSH 4.66 Continue levothyroxine 112 mcg daily (early am)-no change in does at this time Plan to change dose accordingly next visit pending lab results Labs ordered Continue to monitor Assessment & Plan (03/02/2023 7:19 AM CDT): HPI: Condition is not at/near goal A&P: Discussed/ordered labs, encouraged healthy, low carbohydrate lifestyle and at least 150min/week of exercise, continue on levothyroxine 112 mcg daily Assessment & Plan (08/29/2022 10:27 AM CREATIVE MANAGER): HPI: Condition is stable A&P: Discussed/ordered labs, encouraged healthy, low carbohydrate lifestyle and at least 150min/week of exercise, continue on levothyroxine 100 mcg daily Please take levothyroxine on an empty stomach. This means 1 hour before eating or 2 hours after eating. Food in the stomach will interfere with absorption of the levothyroxine. Calcium, antacids and iron supplements will also interfere with the absorption of levothyroxine. Please take these at a different time of the day. Assessment & Plan (03/01/2022 7:00 AM CDT): HPI: Condition is stable A&P: Discussed/ordered labs, encouraged healthy, low carbohydrate lifestyle and at least 150min/week of exercise, continue on Levothyroxine 100 mcg daily Assessment & Plan (09/01/2021 10:01 AM CREATIVE MANAGER): HPI: Condition is not at/near goal TSH was too low 0.02 A&P: Discussed/ordered labs, encouraged healthy, low carbohydrate lifestyle and at least 150min/week of exercise, decrease levothyroxine from 125mcg daily to 112mcg daily. Repeat TSH in 6 wks. IBS (irritable bowel syndrome) 07/12/2009 Assessment & Plan (03/02/2023 7:16 AM CDT): HPI: Condition is stable A&P: Discussed/ordered labs, encouraged healthy, low carbohydrate lifestyle and at least 150min/week of exercise, continue on Metamucil fiber, daily probiotic, and amitriptyline 25 mg once daily Assessment & Plan (08/30/2022 10:42 AM CREATIVE MANAGER): HPI: Condition is stable Reports it flares up about once a month, but is easily controlled A&P: Discussed/ordered labs, encouraged healthy, low carbohydrate lifestyle and at least 150min/week of exercise, continue on Metamucil fiber, probiotic daily, and amitriptyline 25 mg once daily Assessment & Plan (03/01/2022 9:33 AM CDT): HPI: Condition is stable Has bouts of constipation A&P: Discussed/ordered labs, encouraged healthy, low carbohydrate lifestyle and at least 150min/week of exercise, continue on Metamucil Fiber and amitriptyline 25 mg once daily 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 This will help maintain the good bacteria that is in your gut. Assessment & Plan (09/01/2021 9:59 AM CREATIVE MANAGER): HPI: Condition is stable she used to have bouts of diarrhea, but has changed and has bouts of constipation. Currently normal A&P: Discussed/ordered labs, encouraged healthy, low carbohydrate lifestyle and at least 150min/week of exercise, continue on fiber and amitriptyline 25mg once daily Resolved Problems Problem Noted Date Diagnosed Date Resolved Date Personal history of colonic polyps 12/19/2023 05/05/2024 BRBPR (bright red blood per rectum) 12/19/2023 05/05/2024 Encounter for screening colonoscopy 12/19/2023 05/05/2024 Overweight with body mass in dex (BMI) of 27 to 27.9 in adult 12/17/2023 05/05/2024 Assessment & Plan (12/17/2023 11:12 AM CDT): Wt Readings from Last 3 Encounters: 12/17/23 71.4 kg (157 lb 6.4 oz) 12/11/23 76.1 kg (167 lb 12.8 oz) 11/05/23 68.9 kg (152 lb) Body mass index is 27.1 kg/m??. -Weight loss noted -Discussed recommendations for exercise at least 30 minutes moderate to vigorous exercise as tolerated most days of the week. (minimum 150 minutes weekly) -Discussed importance of well-balanced diet. Bright red blood per rectum 12/11/2023 05/05/2024 Hyponatremia 12/11/2023 12/17/2023 TERI (acute kidney injury) 12/11/2023 Chest pain 06/04/2023 05/05/2024 Assessment & Plan (06/12/2023 1:11 PM CDT): - recent hospital stay for chest pain - was noted to be in afib with RVR with rate of 11 - symptom resolved during hospital stay - follows with Cardiology Dr. Washington - most recent Echo done during hospitalization as shown below Echo 06/16 Conclusions: Irregular rhythm. Normal global left ventricular systolic function. Ejection fraction is visually estimated at 65 to 70 %. There is mild enlargement of left atrium. Mild mitral annular calcification. Mild mitral valve regurgitation. Mild aortic stenosis. Peak velocity AOV of 2.2 m/sec. Peak gradient of 20.0 mmHg. Aortic cusps appear mildly sclerotic. Mild aortic valve regurgitation. Normal structure of the tricuspid valve. Trivial regurgitation in the tricuspid valve. Technically difficult study with limited views. Rash of body 03/02/2023 12/17/2023 Assessment & Plan (03/02/2023 12:59 PM CDT): -start on triamcinolone 0.1% ointment twice daily as needed on areas of rash. Advised patient to only use for up to 2 weeks at a time. Advised patient to not use any steroid creams on face or genital area. -recommend keeping skin moisturized -may continue to use psoriasis shampoo -follow up if not improving BMI 26.0-26.9,adult 06/14/2022 12/17/19 Assessment & Plan (11/05/2023 2:39 PM CREATIVE MANAGER): -chronic, stable goal BMI <30 Healthy, high-protein, lower carbohydrate, lower fat lifestyle and exercise for 150min/week recommended Recommend tracking everything you put in your mouth on an jaylan like [employer] Hand Measurements: A fist or cupped hand = 1 cup 1 cup = 1??-2 servings of fruit juice 1 oz. of cold cereal 2 oz. of cooked cereal, rice or pasta 8 oz. of milk or yogurt A thumb = 1 oz. of cheese Consuming low-fat cheese helps you meet the required servings from the milk, yogurt and cheese group. 1?? oz. of low-fat cheese counts as 8 oz. of milk or yogurt. Handful = 1-2 oz. of snack food Thumb tip = 1 teaspoon Keep high-fat foods, such as peanut butter and mayonnaise, at a minimum. One teaspoon is equal to the end of your thumb, from the knuckle up. Three teaspoons equals 1 tablespoon. Palm = 3 oz. of meat Choose lean poultry, fish, shellfish and beef. One palm size portion equals 3 oz. for an adult and 1??-2 oz. for a child under 5. 1 tennis ball or a fist= 1/2 cup of fruit and vegetables Healthy diets include a variety of colorful fruits and vegetables every day. The secret to serving size is in your hand. Snacking can add up. Because hand sizes vary, compare your fist size to an actual measuring cup. Assessment & Plan (03/02/2023 7:13 AM CDT): HPI: Condition is stable goal BMI <30 A&P: Healthy, high-protein, lower carbohydrate, lower fat lifestyle and exercise for 150min/week recommended Recommend tracking everything you put in your mouth on an jaylan like [employer] Hand Measurements: A fist or cupped hand = 1 cup 1 cup = 1??-2 servings of fruit juice 1 oz. of cold cereal 2 oz. of cooked cereal, rice or pasta 8 oz. of milk or yogurt A thumb = 1 oz. of cheese Consuming low-fat cheese helps you meet the required servings from the milk, yogurt and cheese group. 1?? oz. of low-fat cheese counts as 8 oz. of milk or yogurt. Handful = 1-2 oz. of snack food Thumb tip = 1 teaspoon Keep high-fat foods, such as peanut butter and mayonnaise, at a minimum. One teaspoon is equal to the end of your thumb, from the knuckle up. Three teaspoons equals 1 tablespoon. Palm = 3 oz. of meat Choose lean poultry, fish, shellfish and beef. One palm size portion equals 3 oz. for an adult and 1??-2 oz. for a child under 5. 1 tennis ball or a fist= 1/2 cup of fruit and vegetables Healthy diets include a variety of colorful fruits and vegetables every day. The secret to serving size is in your hand. Snacking can add up. Because hand sizes vary, compare your fist size to an actual measuring cup. Assessment & Plan (08/29/2022 10:30 AM CREATIVE MANAGER): HPI: Condition is stable goal BMI <30 A&P: Healthy, high-protein, lower carbohydrate, lower fat lifestyle and exercise for 150min/week recommended Recommend tracking everything you put in your mouth on an jaylan like [employer] Hand Measurements: A fist or cupped hand = 1 cup 1 cup = 1??-2 servings of fruit juice 1 oz. of cold cereal 2 oz. of cooked cereal, rice or pasta 8 oz. of milk or yogurt A thumb = 1 oz. of cheese Consuming low-fat cheese helps you meet the required servings from the milk, yogurt and cheese group. 1?? oz. of low-fat cheese counts as 8 oz. of milk or yogurt. Handful = 1-2 oz. of snack food Thumb tip = 1 teaspoon Keep high-fat foods, such as peanut butter and mayonnaise, at a minimum. One teaspoon is equal to the end of your thumb, from the knuckle up. Three teaspoons equals 1 tablespoon. Palm = 3 oz. of meat Choose lean poultry, fish, shellfish and beef. One palm size portion equals 3 oz. for an adult and 1??-2 oz. for a child under 5. 1 tennis ball or a fist= 1/2 cup of fruit and vegetables Healthy diets include a variety of colorful fruits and vegetables every day. The secret to serving size is in your hand. Snacking can add up. Because hand sizes vary, compare your fist size to an actual measuring cup. Assessment & Plan (06/14/2022 2:14 PM CDT): HPI: Condition is stable A&P: Discussed/ordered labs, encouraged healthy, low carbohydrate lifestyle and at least 150min/week of exercise Pre-diabetes 11/20/2017 05/05/2024 Assessment & Plan (11/05/2023 2:36 PM CREATIVE MANAGER): -chronic, stable -Discussed/ordered labs -encouraged healthy, low carbohydrate lifestyle and at least 150min/week of exercise. Assessment & Plan (08/30/2023 4:02 PM CREATIVE MANAGER): Chronic problem-improving at goal of A1C < 7.0% Glucose 133 A1C 6.0 Encouraged to follow heart healthy diet-low sugar intake Encouraged to increase activity to at least 150 min/week Continue to monitor Labs ordered No need to initiate glycemic medications at this time given patient age and levels improving Assessment & Plan (06/12/2023 1:31 PM CDT): - chronic condition, worse - most recent A1c as shown below - recommend repeat measurement to confirm if patient is diabetic - however, given age no need for initiation of diabetic medication at this time - monitor food intake Lab Results Component Value Date HGBA1C 7.1 (H) 06/06/2023 HGBA1C 6.4 (H) 02/23/2023 HGBA1C 6.1 (H) 08/25/2022 Lab Results Component Value Date LDLCALC 90 02/24/2022 CREATININE 0.88 06/05/2023 Assessment & Plan (03/02/2023 7:15 AM CDT): HPI: Condition is stable A&P: Discussed/ordered labs, encouraged healthy, low carbohydrate lifestyle and at least 150min/week of exercise. Assessment & Plan (08/29/2022 10:29 AM CREATIVE MANAGER): HPI: Condition is stable Patient had been taking metformin in the past. A&P: Discussed/ordered labs, encouraged healthy, low carbohydrate lifestyle and at least 150min/week of exercise. Assessment & Plan (03/01/2022 9:32 AM CDT): HPI: Condition is Increasing from 5.7% to 6.1%, In August 2021 was 4.9% A&P: Discussed/ordered labs, encouraged healthy, low carbohydrate lifestyle and at least 150min/week of exercise, Really needs to Sorin in on low carb lifestyle and increased exercise, May need to start back on metformin if number is not back down at next visit. Assessment & Plan (09/01/2021 10:10 AM CREATIVE MANAGER): HPI: Condition is at goal A1c today is 4.9% A&P: Discussed/ordered labs, encouraged healthy, low carbohydrate lifestyle and at least 150min/week of exercise, pt has been on glipizide in the past but caused hypoglycemia, no longer taking the metformin. She has been off of it for a couple years. No side effects from it though. You do not need medication for this. After cataract of right eye not obscuring vision 10/29/2017 12/17/2023 Closed nondisplaced fracture of greater trochanter of right femur ([facility]) 10/25/2017 12/0 05/2021 Immunizations Name Administration Dates Next Due Influenza, Quadrivalent, Hig h Dose, Preservative Free, Intrr 06/12/2023,06/14/2022 Influenza, Unspecified 06/24/2021,2019(Deferred: Patient Refused),05/25/2020(Deferred: Patient Refused) Pneumococcal Conjugate PCV 13 11/17/2016, 016 Pneumococcal Polysaccharide PPV23 11/20/2017 Tdap 11/05/2023 ZOSTER LIVE 10/11/2012 Social History Tobacco Use Types Packs/Day Years Used Date Smoking Tobacco: Never Passive Smoke Exposure: Never Smokeless Tobacco: Never Tobacco Cessation:Counseling Given: Not Answered Alcohol Use Standard Drinks/Week Comments No 0 (1 standard drink = 0.6 oz pur e alcohol) [facility] Utilities Answer Date Recorded In the past 12 months has th e electric, gas, oil, or water company threatened to shut off services in your home? No 12/17/2023 Social Connection and Isolat ion Panel [NHANES] Answer Date Recorded In a typical week, how many times do you talk on the phone with family, friends, or neighbors? More than three times a week 12/17/2023 How often do you get togethe r with friends or relatives? Once a week 12/17/2023 How often do you attend chur ch or christianity services? More than 4 times per year 12/17/2023 Do you belong to any clubs o r organizations such as amish groups, unions, fraternal or athletic groups, or school groups? Yes 12/17/2023 How often do you attend meet ings of the clubs or organizations you belong to? More than 4 times per year 12/17/2023 Are you , , di vorced, , never , or living with a partner? 12/17/2023 AUDIT-C Answer Date Recorded Q1: How often do you have a drink containing alcohol? Never 05/14/2024 Q2: How many drinks containi ng alcohol do you have on a typical day when you are drinking? Patient does not drink Q3: How often do you have si x or more drinks on one occasion? Never 05/14/2024 Overall Financial Resource Strain (CARDIA) Answe r Date Recorded How hard is it for you to pa y for the very basics like food, housing, medical care, and heating? Not hard at all 12/17/2023 PHQ-2 Answer Date Recorded PHQ-2 Total Score (If total score is 3 or more points, staff should administer the PHQ-9) 3 05/05/2024 Hunger Vital Sign Answer Date Recorded Within the past 12 months, y ou worried that your food would run out before you got the money to buy more. Never true 12/17/19 24 Within the past 12 months, t he food you bought just didn't last and you didn't have money to get more. Never true 12/17/2023 PRAPARE - Transportation Answer Date Re corded In the past 12 months, has l ack of transportation kept you from medical appointments or from getting medications? No 11/23 In the past 12 months, has l ack of transportation kept you from meetings, work, or from getting things needed for daily living? No 12/17/2023 Housing Stability Vital Sign Answer Edgar e Recorded In the last 12 months, was t here a time when you were not able to pay the mortgage or rent on time? No 12/17/2023 In the last 12 months, how many places have you lived? 1 12/17/2023 In the last 12 months, was t here a time when you did not have a steady place to sleep or slept in a m[facility]p (including now)? No 12/17/2023 Personal Safety Answer Date Recorded Have you ever been in or are you currently in a harmful physical or emotional relationship or is someone making you feel afraid or unsafe? Denies 02/05/2024 Education Answer Date Recorded What is the highest level of school you have completed or the highest degree you have received? Some college, no degree 06/05/2023 Comments No Sex and Gender Information Value Date Recorded Sex Assigned at Not on file Legal Sex Female 6:07 PM CREATIVE MANAGER Gender Identity Female 10/16/2021 7:51 PM CREATIVE MANAGER Sexual Orientation Not on file Last Filed Vital Signs Vital Sign Reading Time Taken Comments Blood Pressure 124/73 05/14/2024 1:25 PM CDT Pulse 82 05/14/2024 1:25 PM CDT Temperature 36.4 ??C (97.5 ??F) 05/05/2024 1:20 PM CD T Respiratory Rate 16 05/05/2024 1:20 PM CDT Oxygen Saturation 99% 05/14/2024 1:25 PM CDT Inhaled Oxygen Concentration - - Weight 68.6 kg (151 lb 4.8 oz) 05/14/2024 1:25 P M CDT Height 160 cm (5' 3 ) 05/14/2024 1:25 PM CDT Body Mass Index 26.8 05/14/2024 1:25 PM CDT Plan of Treatment Not on file Medical Devices Implanted Type Area Employment Programs Analyst Device Identifier Shelf Expiration Date Model / Serial / Lot Pacemaker Pacemaker Left: Chest Procedures Procedure Name Priority Date/Time Associated Diagnosis Comments XR TRANSFER OF OUTSIDE FILMS Routine 08/08/2024 12:00 AM CREATIVE MANAGER ALBUMIN CREATININE RATIO, URINE Routine 05/05/2024 2:14 PM CDT Type 2 diabetes mellitus with stage 3a chronic kidney disease, without long-term current use of insulin (HCC) COMPREHENSIVE METABOLIC PANEL Routine 02/08/2024 11:13 AM CDT Elevated serum creatinine HEMOGLOBIN A1C Routine 12/28/2023 9:12 AM CDT Pre-diabetes LIPID PANEL Routine 12/28/2023 9:12 AM CDT Mixed hyperlipidemia DEXA AXIAL SKELETON BONE DENSITY 1 OR MORE SITES Schedule Routine, Read Routine (OP Routine) 11/14/2023 1:28 PM CREATIVE MANAGER Other specified disorders of bone density and structure, multiple sites from Last 3 Months or Most Recently Relevant to Health Maintenance Results * XR Outside Reference (08/08/2024 12:00 AM CREATIVE MANAGER) Narrative [facility] - 08/11/2024 2:41 PM CREATIVE MANAGER This order has been auto-finalized and does not contain a result. us Provider Transcribed Order IMG XR PROCEDURES Fin al Result [facility] * (ABNORMAL) Albumin Creatinine Ratio, Urine (05/05/2024 2:14 PM CDT) Albumin Ur 15.9 mg/L Comment: Interpretive Data No reference range established. Current interpretive data was last revised 2019. Creatinine Ur 31.8 mg/dL [facility] Comment: Interpretive Data No reference range established. Current interpretive data was last revised 2019. Albumin Creatinine Ratio, Ur 50(H) 1 - 29 mg/g [facility] Urine 05/05/2024 2:14 PM CDT 05/05/2024 7:48 PM CDT Melanie Oconnor NP LAB URINE ORDERABLES Final R esult [facility] [id number] [address] Department [place] [address] * (ABNORMAL) Comprehensive metabolic panel (02/08/2024 11:13 AM CDT) Glucose 95 65 - 99 mg/dL [facility] Comment: ? Fasting reference interval BUN 21 7 - 25 mg/dL [facility] Creatinine 1.10(H) 0.60 - 0.95 mg/dL [facility] eGFR 50(L) > OR = 60 mL/min/1.7 3m2 [facility] BUN/creat ratio 19 6 - 22 (calc) [facility] Sodium 139 135 - 146 mmol/L [facility] Potassium, pl 4.2 3.5 - 5.3 mmol/L [facility] Chloride 101 98 - 110 mmol/L [facility] CO2 28 20 - 32 mmol/L [facility] Calcium 9.2 8.6 - 10.4 mg/dL [facility] Protein, sr 6.9 6.1 - 8.1 g/dL [facility] Albumin 4.1 3.6 - 5.1 g/dL [facility] GLOBULIN 2.8 1.9 - 3.7 g/dL (calc) [facility] Alb/glob ratio 1.5 1.0 - 2.5 (calc) [facility] Bilirubin, total 1.2 0.2 - 1.2 mg/dL [facility] Alk phos 67 37 - 153 U/L [facility] AST 22 10 - 35 U/L [facility] ALT (SGPT) 19 6 - 29 U/L [facility] Blood 02/08/2024 11:1 3 AM CDT 02/08/2024 11:14 AM CDT Melanie Oconnor NP LAB BLOOD ORDERABLES Final R esult [facility] [id number] [address] [address] [id number] * (ABNORMAL) Hemoglobin A1c (12/28/2023 9:12 AM CDT) Hgb A1C 6.2(H) <5.7 % of total Hgb [facility] Comment: For someone without known diabetes, a hemoglobin A1c value between 5.7% and 6.4% is consistent with prediabetes and should be confirmed with a follow-up test. For someone with known diabetes, a value <7% indicates that their diabetes is well controlled. A1c targets should be individualized based on duration of diabetes, age, comorbid conditions, and other considerations. This assay result is consistent with an increased risk of diabetes. Currently, no consensus exists regarding use of hemoglobin A1c for diagnosis of diabetes for children. ? This test was performed on the Abhijeet brielle c503 platform. Effective 12/10/23, a change in test platforms from the Kaur [employer]icing Specialist to the Abhijeet brielle c503 may have shifted HbA1c results compared to historical results. Based on laboratory validation testing conducted at [facility], the Abhijeet platform relative to the Kaur platform had an average increase in HbA1c value of < or = 0.3%. This difference is within accepted variability established by the National Glycohemoglobin Standardization Program. Note that not all individuals will have had a shift in their results and direct comparisons between historical and current results for testing conducted on different platforms is not recommended. Blood 12/28/2023 9:12 AM CDT 12/28/2023 9:13 AM CDT Melanie Oconnor LAB BLOOD ORDERABLES Final R esult [facility] [id number] [address] Begum [id number] * (ABNORMAL) Lipid panel (12/28/2023 9:12 AM CDT) Cholesterol 154 <200 mg/dL [facility] HDL 40(L) > OR = 50 mg/dL [facility] Triglycerides 214(H) <150 mg/dL [facility] Comment: If a non-fasting specimen was collected, consider repeat triglyceride testing on a fasting specimen if clinically indicated. Jamie et al. J. of Clin. Lipidol. 2015;9:129-169. LDL 83 mg/dL (calc) [facility] Comment: Reference range: <100 Desirable range <100 mg/dL for primary prevention; ?? <70 mg/dL for patients with CHD or diabetic patients with > or = 2 CHD risk factors. LDL-C is now calculated using the Dick-Prince calculation, which is a validated novel method providing better accuracy than the Friedewald equation in the estimation of LDL-C. Dick SS et al. DURGA. 2013;310(19): 6581-4115 (http://education.[employer]/faq/NOX488) Chol/HDL ratio 3.9 <5.0 (calc) [facility] Non-HDL, (LDL+VLDL) 114 <130 mg/dL (calc) [facility] Comment: For patients with diabetes plus 1 major ASCVD risk factor, treating to a non-HDL-C goal of <100 mg/dL (LDL-C of <70 mg/dL) is considered a therapeutic option. Blood 12/28/2023 9:12 AM CDT 12/28/2023 9:13 AM CDT [facility] Final R esult [place] [address] Ankur Casiano NADIA [place] [id number] * Dexa Axial Skeleton Bone Density 1 or 2 Site (11/14/2023 1:28 PM CREATIVE MANAGER) Anatomical Region Laterality Modality Body N/A Other 11/14/2023 6:14 PM CREATIVE MANAGER Narrative 11/14/2023 6:15 PM CREATIVE MANAGER EXAM DESCRIPTION: DEXA AXIAL SKELETON BONE DENSITY 1 OR MORE SITES REASON FOR STUDY: 82 y/o ?? year old ??F ??with given history of: ??screening ?? Postmenopausal ? Employment Programs Analyst/Model: [employer] (S/N [id number]) CLINICAL INFORMATION: Current height: ??62.3 ??inches ? Maximum height: ??64 ??inches ? Weight: ??151 ??pounds Risk factors: ??Postmenopausal COMPARISON: 09/26/2021 Dissimilar scan types or analysis methods precludes assessment for calculating a significant change. FINDINGS: AP LUMBAR SPINE L1-L4: Total BMD is 0.987 g/cm2 T-score is -0.5 LEFT HIP: Total BMD is 0.812 g/cm2 T-score is -1.1 Femoral neck BMD is 0.727 g/cm2 T-score is -1.1 ?? FRAX: 10 year risk for a major osteoporotic fracture is 12 %, 10 year risk for a hip fracture is 2.5 % IMPRESSION: Low Bone Mass. REFERENCE: Bone mineral density: ? Normal (T-score above or = -1.0) ? Low bone mass ??(T-score between -1.0 and -2.5) replaces the previously used term osteopenia ? Osteoporosis (T-score = or below -2.5) Please see below follow up recommendations. Medical evaluation for secondary causes of low bone mineral density may be appropriate. FRAX is a World Health Organization validated fracture risk assessment tool that calculates a person's 10 year probability of a major osteoporosis related fracture and hip fracture. ??According to the National Osteoporosis Foundation guidelines, postmenopausal women and men age 50 or older with low bone mass and a 10 year probability of a major osteoporosis related fracture = or greater than 20% or a 10 year probability of a hip fracture = or greater than 3% should be considered for pharmacological treatment for the prevention of osteoporosis. For further information, including treatment recommendations, please refer to the 2019 ISCD Official Positions (http://www.iscd.org) and the NOF's Clinician's Guide to Prevention and Treatment of Osteoporosis (http://www.nof.org/professionals/clinical-guidelines) THIS IS AN ELECTRONICALLY VERIFIED FINAL REPORT 11/14/2023 6:15 PM - Electronically signed by ??Josh COLE: DOUGLAS D: ??11/14/2023 6:15 PM T: ??11/14/2023 6:15 PM Report ID: [id number] Reading Location: ??[id number] Procedure Note Josh Dave MD - 11/14/2023 EXAM DESCRIPTION: DEXA AXIAL SKELETON BONE DENSITY 1 OR MORE SITES REASON FOR STUDY: 82 y/o year old F with given history of: screening 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 FINDINGS: AP LUMBAR SPINE L1-L4: Total BMD is 0.987 g/cm2 T-score is -0.5 LEFT HIP: Total BMD is 0.812 g/cm2 T-score is -1.1 Femoral neck BMD is 0.727 g/cm2 T-score is -1.1 FRAX: 10 year risk for a major osteoporotic fracture is 12 %, 10 year risk for ahip fracture is 2.5 % IMPRESSION: Low Bone Mass. REFERENCE: Bone mineral density: Normal (T-score above or = -1.0) Low bone mass (T-score between -1.0 and -2.5) replaces thepreviously used term osteopenia Osteoporosis (T-score = or below -2.5) Please see below follow up recommendations. Medical evaluation forsecondary causes of low bone mineral density may be appropriate. FRAX is a World Health Organization validated fracture risk assessmenttool that calculates a person's 10 year probability of a major osteoporosisrelated fracture and hip fracture. According to the National OsteoporosisFoundation guidelines, postmenopausal women and men age 50 or older with low bonemass and a 10 year probability of a major osteoporosis related fracture = or greater than 20% or a 10 year probability of a hip fracture = or greaterthan 3% should be considered for pharmacological treatment for the preventionof osteoporosis. For further information, including treatment recommendations, please referto the 2019 ISCD Official Positions (http://www.iscd.org) and the NOF's Clinician's Guide to Prevention and Treatment of Osteoporosis (http://www.nof.org/professionals/clinical-guidelines) THIS IS AN ELECTRONICALLY VERIFIED FINAL REPORT 11/14/2023 6:15 PM - Electronically signed by Josh Dave M.D. MF: DOUGLAS Report ID: [id number] Reading Location: [place] [address] Melanie Oconnor NP IMG DXA PROCEDURES Final Res ult from Last 3 Months or Most Recently Relevant to Health Maintenance Insurance [employer] CHOICE MEDICARE PPO [employer]ETNA [facility] ADVANTRA Advance Directives For more information, please contact: [phone] * Full Code (Latest Code Status on File) Date Activated Date Inactivated Comments 02/05/2024 10:55 AM 02/05/2024 5:12 PM * Full Code Date Activated Date Inactivated Comments 02/05/2024 10:55 AM 02/05/2024 10:55 AM * Full Code Date Activated Date Inactivated Comments 12/11/2023 4:43 AM 12/14/2023 5:02 PM * Full Code Date Activated Date Inactivated Comments 06/05/2023 9:56 AM 06/07/2023 6:30 PM Care Teams Gun Striper Relationship Specialty Start Date End Date Melanie Oconnor NP [address] [place] [address] PCP - General Family Medicine 08/30/22 Maynor Washington Jr., MD [address] [place] [address] Consulting Physician Cardiovascular Disease 09/01/21 Tito Steinberg MD [address] [place] [address] Referring Physician Ophthalmology 03/01/22 Vicky Cummins MD [address] [place] [address] Consulting Physician Gastroenterology 12/14/23 Liz Burns NP [address] [place] [address] Nurse Practitioner 05/05/24
--- OUTSIDE RECORDS SUMMARY | 2024-10-24 15:22 | XMS_ITS | Referral Summary ---
Author Organization [facility] Address [address] [place] [address] Care Team Providers Care Energy Trader Name Role Phone Preeti Campa MD Primary Care Provider [phone] Phyllis Campa MD Unavailable Unavailable Source Comments [facility],non-owned Affiliates and Associated Physician Practices is amultiple site organization consisting of ambulatory clinics and hospital sitesin [place], [place], [place] and [place]. This disclosure is being madepursuant to the Care Everywhere program and may not contain all information available regarding this patient. Last updated 18.[facility] Allergies Active Allergy Reactions Criticality Noted Date [...] Active Vitamin E 400 UNITS Activ e Latimer-3 Fatty Acids (FISH OIL DELAYED RELEASE) 1000 MG capsule Take 2 capsules by mouth daily with food Active fluticasone propionate (FLONASE) 50 MCG/ACT nasal spray [place] 1 spray into each nostril 2 times daily 1 bottles 10/29/2018 Active NIACIN, ANTIHYPERLIPIDEMIC, PO Active Social History Tobacco Use Types Packs/Day Years [...] 12/02/2018 9:01 AM CDT Plan of Treatment Not on file Care Teams Energy Trader Relationship Specialty [place] [address] [facility] [address] [place] [address] PCP - General Internal Medicine 09/21/17 [place] [address] [facility] [address] [place] [address] Family Medicine 09/21/17
--- OUTSIDE RECORDS SUMMARY | 2024-10-24 15:22 | XMS_ITS | Patient Health Summary ---
Author Organization [facility] Address [address] [place] [address] Care Team Providers Care Director Of Special Events Name Role Phone Preeti Campa MD Primary Care Provider [phone] Phyllis Campa MD Unavailable Unavailable Note from [facility],non-owned Affiliates and Associated Physician Practices is amultiple site organization consisting of ambulatory clinics and hospital sitesin [place], [place] and [place]. This disclosure is being madepursuant to the Care Everywhere program and may not contain all information available regarding this patient. Last updated 18.[facility] Allergies * Gemfibrozil(Rash) -Low Criticality Medications * Be aware that medications may not be up to date on this document. Alwaysverify current medications with the patient. * levothyroxine (SYNTHROID) 75 MCG tablet Take 75 mcg by mouth daily before breakfast * lisinopril (PRINIVIL; ZESTRIL) 40 MG tablet Take 40 mg by mouth once daily * amitriptyline (ELAVIL) 25 MG tablet Take 25 mg by mouth at bedtime * psyllium (METAMUCIL) 58.6 % powder Take 1 Packet by mouth once daily * aspirin EC (ECOTRIN) 81 MG tablet Take 81 mg by mouth once daily * Vitamin E 400 UNITS * [place]-3 Fatty Acids (FISH OIL DELAYED RELEASE) 1000 MG capsule Take 2 capsules by mouth daily with food * fluticasone propionate (FLONASE) 50 MCG/ACT nasal spray(Started 10/29/2018) [place] 1 spray into each nostril 2 times daily * NIACIN, ANTIHYPERLIPIDEMIC, PO Social History Tobacco Use Types Packs/Day Years [...] Mass Index 28.84 12/02/2018 9:01 AM CDT Procedures * CULTURE URINE(Performed 12/02/2018) Performed for Cystitis with hematuria * URINALYSIS AUTO - POINT OF CARE (AMB) STL(Performed 12/02/2018) Performed for Cystitis with hematuria * CULTURE URINE(Performed 11/20/2018) Performed for Dysuria * URINALYSIS AUTO - POINT OF CARE (AMB) STL(Performed 11/20/2018) Performed for Dysuria * CULTURE URINE(Performed 09/20/2018) Performed for Cystitis with hematuria * URINALYSIS AUTO - POINT OF CARE (AMB) STL(Performed 09/20/2018) Performed for Cystitis with hematuria * CULTURE URINE(Performed 09/21/2017) Performed for Acute cystitis with hematuria * URINALYSIS AUTO - POINT OF CARE (AMB) STL(Performed 09/21/2017) Performed for Acute cystitis with hematuria * CARDIAC RHYTHM STRIP ORDER(Performed 10/22/2015) * CT GUIDED NEEDLE PLACEMENT(Performed 10/20/2015) Performed for Abnormal LFTs * PATHOLOGY TISSUE EXAM (STL)(Performed 10/20/2015) Performed for Abnormal LFTs * PT-INR(Performed 10/20/2015) Performed for Abnormal LFTs * CBC W AUTO DIFFERENTIAL(Performed 10/20/2015) Performed for Abnormal LFTs Results * (ABNORMAL) CULTURE URINE (12/02/2018 9:26 AM CDT) Only the most recent of4 resultswithin the time period is included. [facility] Urine Culture Routine Final report(A) [facility] INSURANCE BILL Result 1 Escherichia coli(A) [facility] INSURANCE BILL Comment: Greater than 100,000 colony forming units per mL Cefazolin <=4 ug/mL Cefazolin with an BETHANY <=16 predicts susceptibility to the oral agents cefaclor, cefdinir, cefpodoxime, cefprozil, cefuroxime, cephalexin, and loracarbef when used for therapy of uncomplicated urinary tract infections due to E. coli, Klebsiella pneumoniae, and Proteus mirabilis. Antimicrobial Susceptibility [facility] INSURANCE BILL Comment: ? S = Susceptible; I = Intermediate; R = Resistant ? P = Positive; N = Negative ?MICS are expressed in micrograms per mL ?? Antibiotic ? RSLT#1 ?RSLT#2 ?RSLT#3 ?RSLT#4 Amoxicillin/Clavulanic Acid ?S Ampicillin ? S Cefepime ? S Ceftriaxone ?S Cefuroxime ? S Ciprofloxacin ?S Ertapenem ?S Gentamicin ? S Imipenem ? S Levofloxacin ? S Meropenem ?S Nitrofurantoin ? S Piperacillin/Tazobactam ?S Tetracycline ? S Tobramycin ? S Trimethoprim/Sulfa ? S Urine URINE SPECIMEN OBTAINED BY CLEAN CATCH PROCEDURE / Unknown 12/02/2018 9:26 AM CDT 12/02/2018 Narrative Resulting Agency Comment [facility] [address] ??[facility] [id number] Sh[facility] - MICROB IOLOGY ORDERABLES [facility] INSURANCE BILL [address] [place] [address] * (ABNORMAL) URINALYSIS AUTO - POINT OF CARE (AMB) STL (12/02/2018) Only the most recent of4 resultswithin the time period is included. Clarity UA POCT clear Color UA POCT yellow Leukocyte UA mod Negative Nitrite UA POCT neg Negative Urobilinogen UA 0.2 0.1 - 1.0 Protein UA POCT + Negative pH UA 5.0 5.0 - 8.0 pH units Blood UA 3+ Negative Specific [place] UA POCT 1.010 1.002 - 1.030 Ketone UA neg Negative Bilirubin UA POCT neg Negative Glucose UA neg Negative Expiration Date 12/28/18 Lot # [id number] QC Verified Yes Yes Urine URINE / Unknown 12/02/2018 Sharyn Dent APRN-ANIMAL NURSE LAB - POINT OF CARE ORDERABLES * CARDIAC RHYTHM STRIP ORDER (10/22/2015 6:58 PM HIGH SCHOOL HOME ECONOMICS TEACHER) Narrative 10/22/2015 6:58 PM HIGH SCHOOL HOME ECONOMICS TEACHER Ordered by an unspecified provider. Scanned Document CARDIAC SERVICES ORD ERABLES * CT GUIDED NEEDLE PLACEMENT (10/20/2015 9:42 AM HIGH SCHOOL HOME ECONOMICS TEACHER) Anatomical Region Laterality Modality Abdomen Computed Tomogra phy 10/20/2015 2:18 PM HIGH SCHOOL HOME ECONOMICS TEACHER Impressions 10/20/2015 2:18 PM HIGH SCHOOL HOME ECONOMICS TEACHER Successful CT guided liver biopsy as described above. Narrative 10/20/2015 2:18 PM HIGH SCHOOL HOME ECONOMICS TEACHER CT-GUIDED LIVER BIOPSY SUPERVISION OF MODERATE CONSCIOUS SEDATION Clinical Indication: Abnormal liver enzymes Physician: Dr. Roa Complications: None. Moderate conscious sedation: Moderate conscious sedation was achieved with one mg Versed IV and 50 mcg fentanyl IV. Moderate conscious sedation was monitored by the radiology nursing staff. ??Sedation was initiated at 09:27 hours and terminated at 09:37 hours. Procedure/Findings: The risks and benefits of the procedure were explained to the patient. The risks include but are not limited to bleeding, infection, liver injury, bowel injury, pain, failed procedure, nondiagnostic result, aspiration, and respiratory depression. The patient was given ample time to ask questions. ??Following this both written and verbal informed consent was obtained. The patient is placed supine on the CT scan table and targeted CT scanning through the caudal aspect of left lobe of the liver was performed. A suitable skin entry site is marked. Following sterile prep and administration of 1% lidocaine local anesthesia, a 17-gauge introducer needle was advanced into the peripheral margin of the left lobe of the liver under CT guidance. 3 separate 18-gauge 23 mm core biopsy samples were obtained using coaxial technique. The samples were placed in formalin and sent to pathology for analysis. The needle system was then removed and hemostasis achieved immediately after. The patient tolerated the procedure well and was transferred to routine post procedure monitoring in stable condition. Procedure Note Pepe Roa MD - 10/20/2015 CT-GUIDED LIVER BIOPSY SUPERVISION OF MODERATE CONSCIOUS SEDATION Clinical Indication: Abnormal liver enzymes Physician: Dr. Roa Complications: None. Moderate conscious sedation: Moderate conscious sedation was achieved with one mg Versed IV and 50 mcg fentanyl IV. Moderate conscious sedation was monitored by the radiology nursing staff. Sedation was initiated at 09:27 hours and terminated at 09:37 hours. Procedure/Findings: The risks and benefits of the procedure were explained to the patient. The risks include but are not limited to bleeding, infection, liver injury, bowel injury, pain, failed procedure, nondiagnostic result, aspiration, and respiratory depression. The patient was given ample time to ask questions. Following this both written and verbal informed consent was obtained. The patient is placed supine on the CT scan table and targeted CT scanning through the caudal aspect of left lobe of the liver was performed. A suitable skin entry site is marked. Following sterile prep and administration of 1% lidocaine local anesthesia, a 17-gauge introducer needle was advanced into the peripheral margin of the left lobe of the liver under CT guidance. 3 separate 18-gauge 23 mm core biopsy samples were obtained using coaxial technique. The samples were placed in formalin and sent to pathology for analysis. The needle system was then removed and hemostasis achieved immediately after. The patient tolerated the procedure well and was transferred to routine post procedure monitoring in stable condition. IMPRESSION Successful CT guided liver biopsy as described above. Stephen Man MD CT ORDERABLES * GROSS + MICRO EXAM (STL) (10/20/2015 9:30 AM HIGH SCHOOL HOME ECONOMICS TEACHER) Case Report Surgical Pathology Report ? Case: [id number] ? Authorizing Provider: ??Pepe Roa MD ? Collected: ? 10/20/2015 09:30 AM ? Ordering Location: ? [facility] ?Received: ?10/20/2015 11:05 AM ? Pathologist: ? Luis Lazcano MD ? Specimen: ?Liver Wedge Biopsy, Left ? 10/22/2015 12:47 PM HIGH SCHOOL HOME ECONOMICS TEACHER [facility] Final Diagnosis 1. ??Liver, core needle biopsy: -- ??Steatohepatit is, grade 2, stage 3. ?? CHERRIE/arnold 10/22/2015 12:[address] [facility] Gross Description Specimen received in one formalin filled container labeled with the patient name and identified as liver biopsy. ??The specimen consists of four elongated fragments of tissue which measure from 0.9 to 1.9 cm, all submitted in A1. ?? CHERRIE/arnold Received in formalin with container labeled Rehana Soto, left hepatic lobe biopsy. ??The container holds multiple king cylindrical tissue cords and tissue fragments measuring from 0.5 cm in length x less than 0.1 cm in diameter up to 2 cm in length x less than 0.1 cm in diameter. ??The specimen is entirely submitted in cassette labeled A1. ?? CAROL/yony 10/22/2015 12:47 PM HIGH SCHOOL HOME ECONOMICS TEACHER [facility] Microscopic Description Section shows fragments of liver parenchyma. ??Central veins and portal triads are present. ??There is mild periportal inflammation with limiting plate necrosis seen. ??Moderate degree of steatosis is present as well. ??Judith-portal fibrosis is present. ??Fibrosis is confirmed by trichrome stain. ??Iron stain is negative. ?? CHERRIE/arnold 10/22/2015 12:[address] [facility] Pathology/Cytolo gy WEDGE BIOPSY OF LIVER / Unknown 10/20/2015 9:30 AM HIGH SCHOOL HOME ECONOMICS TEACHER 10/20/2015 11:05 AM HIGH SCHOOL HOME ECONOMICS TEACHER Pepe Roa MD LAB - PATHOLOGY/CYTO LOGY ORDERABLES [facility] [address] [place] [address] * PT-INR (10/20/2015 8:29 AM HIGH SCHOOL HOME ECONOMICS TEACHER) PT 11.1 9.5 - 11.6 sec 10/20/2015 8:51 AM HIGH SCHOOL HOME ECONOMICS TEACHER [facility] INR 1.1 0.9 - 1.1 10/20/2015 8:[address] [facility] Blood BLOOD SPECIMEN / Unknown 10/20/2015 8:29 AM HIGH SCHOOL HOME ECONOMICS TEACHER 10/20/2015 8:32 AM [facility] Narrative [facility] - 10/20/2015 8:51 AM [facility] Conventional Warfarin Anticoagulant Therapy: INR Reference Range: ??2.0-3.0 Intensive Warfarin Anticoagulant Therapy: INR Reference Range: ? 2.5-3.5 David Anna MD LAB - COAGULATION ORDERABLES [facility] [address] [place] [address] * CBC W AUTO DIFFERENTIAL (10/20/2015 8:29 AM [facility]) WBC 6.5 4.4 - 10.7 x10^9/L 10/20/2015 8:[address] [facility] WBC Corrected x10^9/L 10/20/2015 8:[address] [facility] RBC 4.27 3.80 - 5.20 x10^12/L 10/20/2015 8:[address] [facility] Hemoglobin 13.0 12.0 - 15.6 gm/dL 10/20/2015 8:[address] [facility] Hematocrit 37.6 35.9 - 45.5 % 10/20/2015 8:[address] [facility] MCV 88.1 80.7 - 98.3 fl 10/20/2015 8:[address] [facility] MCH 30.4 26.7 - 34.0 pg 10/20/2015 8:[address] [facility] MCHC 34.6 30.8 - 35.9 gm/dL 10/20/2015 8:[address] [facility] Platelet Count 177 153 - 416 x10^9/L 10/20/2015 8:[address] [facility] RDW-CV 13.0 12.1 - 14.9 % 10/20/2015 8:[address] [facility] MPV 10.6 9.4 - 12.9 fl 10/20/2015 8:[address] [facility] Neutrophils % 62.4 44.0 - 73.0 % 10/20/2015 8:[address] [facility] Lymphocytes % 25.3 20.0 - 43.0 % 10/20/2015 8:35 AM HIGH S[employer]OL HOME ECONOMICS TEACHER [facility] Monocytes % 5.9 5.0 - 13.0 % 10/20/2015 8:35 AM HIGH SCHOOL HOME ECONOMICS TEACHER [facility] Eosinophils % 4.3 0.0 - 6.0 % 10/20/2015 8:35 AM HIGH SCHOOL HOME ECONOMICS TEACHER [facility] Basophils % 1.2 0.0 - 2.0 % 10/20/2015 8:35 AM HIGH SCHOOL HOME ECONOMICS TEACHER [facility] Immature Granulocytes 0.9 0 - 1 % 10/20/2015 8:35 AM HIGH SCHOOL HOME ECONOMICS TEACHER [facility] Neutrophil Absolute 4.04 2.01 - 7.14 x10^9/L 10/20/2015 8:35 AM HIGH S[employer]OL HOME ECONOMICS TEACHER [facility] Lymphocytes Absolute 1.64 1.07 - 3.94 x10^9/L 10/20/2015 8:35 AM HIGH SCHOOL HOME ECONOMICS TEACHER [facility] Monocytes Absolute 0.38 0.26 - 1.07 x10^9/L 10/20/2015 8:35 AM HIGH SCHOOL HOME ECONOMICS TEACHER [facility] Eosinophils Absolute 0.28 0 - 0.47 x10^9/L 10/20/2015 8:35 AM HIGH SCHOOL HOME ECONOMICS TEACHER [facility] Basophils Absolute 0.08 0 - 0.08 x10^9/L 10/20/2015 8:35 AM HIGH SCHOOL HOME ECONOMICS TEACHER [facility] Immature Granulocytes Absolute 0.06 0.00 - 0.06 x10^9/L 10/20/2015 8:35 AM HIGH SCHOOL HOME ECONOMICS TEACHER [facility] nRBC Auto 0 /100 WBC 10/20/2015 8:35 AM HIGH SCHOOL HOME ECONOMICS TEACHER [facility] Blood BLOOD SPECIMEN / Unknown 10/20/2015 8:29 AM HIGH SCHOOL HOME ECONOMICS TEACHER 10/20/2015 8:32 AM H[employer] S[employer]OL HOME ECONOMICS TEACHER David Anna MD LAB - HEMATOLOGY O RDERABLES [facility] [address] [place] [address] Care Teams Director Of Special Events Relationship Specialty [place] [address] [facility] [address] [place] [address] PCP - General Internal Medicine 09/21/17 [place] [address] [facility] [address] [place] [address] Family Medicine 09/21/17
--- OUTSIDE RECORDS SUMMARY | 2024-10-24 15:22 | XMS_ITS | CONTINUITY OF CARE DOCUMENT ---
Author Name karleverton karleverton Address Unknown Organization [facility] Address [address] [place] [address] Phone [phone] Care Team Providers Care Nurse Receptionist Name Role Phone Padmini HUTCHISON, Maynor Unavailable [phone] Derek HUTCHISON William Unavailable [phone] Derek HUTCHISON William Unavailable [phone] PROBLEMS Condition Status Date Provider Notes Atrial Fibrillation active Maynor Washington MD Pre-procedural laboratory examination active 3 Sanket Castellanos RN Shortness of breath (SOB) active Kody Stevenmary son 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 Maynor Washington MD Dyspnea on exertion active Maynor Washington MD Sick sinus syndrome active Maynor Washington MD Chest pain active Radha Ventimiglia MARINATOR Diabetes mellitus, type 2 active Radha Franco timiglrobin MARINATOR ENCOUNTERS Date Type Provider Location Encounter Diag nosis 11/28 - 11/28 In-person encounter Office Visit Maynor [facility] MD [facility] 06/20 - 06/20 In-person encounter Office Visit Maynor [facility] MD [facility] Chest painDiabetes mellitus, type 2 11/29 - 11/29 In-person encounter Office Visit Maynor Washington MD [facility] 11/30 - 11/30 In-person encounter Office Visit Maynor [facility] MD [facility] 06/01 - 06/06 In-person encounter Office Visit Maynor [facility] MD [facility] Sick sinus syndrome 02/09 - 02/10 In-person encounter Office Visit Maynor [facility] MD [facility] Dyspnea on exertion - In-person encounter Office Visit Maynor [facility] MD [facility] 10/23 - 10/24 In-person encounter Office Visit Maynor [facility] MD [facility] - In-person encounter Office Visit Maynor [facility] MD [facility] Aortic stenosis-very mild(2.37cm2)HTN essentialHyperlipidemiaHypothyroidismHypertension VITAL SIGNS Date Observation Value Provider Body Mass Index (Ratio) 28.83 kg/m2 Tian Washington MD blood pressure, cuff size regular Ke celine Del Rio blood pressure, diastolic 80 mm[Hg] Oswald rrshanice Del [place] blood pressure, systolic 146 mm[Hg] Glo [place] oxygen saturation, oximetry 98 % Rahel Del Rio respiratory rate E&M 12 /min Rahel dunn pulse rate 60 /min Rahel Blakely er weight E&M 168 [lb_av] Rahel Blakely er height E&M 64 [in_i] Rahel Blakely er Body Mass Index (Ratio) 27.98 kg/m2 Lia colleen Grandner blood pressure, diastolic 89 mm[Hg] An jayne Thor blood pressure, systolic 147 mm[Hg] Any sarthak Thor pulse rate 92 /min Anna oxygen saturation, oximetry 100 % Anna Thor weight E&M 163 [lb_av] Anna Thor blood pressure, cuff size large An jayne Thor height E&M 64 [in_i] Anna Thor Body Mass Index (Ratio) 27.98 kg/m2 Tian Washington MD blood pressure, diastolic 71 mm[Hg] Yana nkLog blood pressure, systolic 146 mm[Hg] Dona og blood pressure, diastolic 71 mm[Hg] St desiree Cal [place] Ari blood pressure, systolic 146 mm[Hg] Charles phanigloria [place] oxygen saturation, oximetry 100 % Alyx [place] pulse rate 68 /min Alyx [facility] n respiratory rate E&M 16 /min Dc [facility] weight E&M 163 [lb_av] Alyx [facility] n blood pressure, cuff size small St desiree [place] height E&M 64 [in_i] Alyx [facility] n Body Mass Index (Ratio) 27.46 kg/m2 Tian Washington MD blood pressure, cuff size regular Ke rri Eliane blood pressure, diastolic 72 mm[Hg] Ke rri Eliane blood pressure, systolic 156 mm[Hg] Glo [place] oxygen saturation, oximetry 100 % Rahel Del [place] respiratory rate E&M 14 /min Rahel dunn pulse rate 60 /min Rahel mccartyer weight E&M 160 [lb_av] Rahel Mcclainfredrickgavingloria lder height E&M 64 [in_i] Rahel Blakely lder Body Mass Index (Ratio) 26.95 kg/m2 Tian Washington MD blood pressure, cuff size regular Cy ivette Ike blood pressure, diastolic 70 mm[Hg] Cy ivette Ike blood pressure, systolic 120 mm[Hg] Beba ott Ike oxygen saturation, oximetry 98 % Lu Ramires respiratory rate E&M 16 /min Lu Ramires pulse rate 60 /min Lu Izquierdo l weight E&M 157 [lb_av] Lu Guerrabel l height E&M 64 [in_i] Ul Campbel l Body Mass Index (Ratio) 28.15 kg/m2 Tian Washington MD blood pressure, cuff size regular Nima isty [place] blood pressure, diastolic 70 mm[Hg] Kr isty Jero blood pressure, systolic 120 mm[Hg] Kri sty Jero respiratory rate E&M 18 /min Enma Jero pulse rate 55 /min Enma Jero oxygen saturation, oximetry 100 % Enma Jero weight E&M 164 [lb_av] Enma Jero height E&M 64 [in_i] Enma [place] Body Mass Index (Ratio) 27.46 kg/m2 Tian Washington MD blood pressure, cuff size regular Nima isty Jero blood pressure, diastolic 70 mm[Hg] Kr isty [place] blood pressure, systolic 120 mm[Hg] Kri sty Jero pulse rate 94 /min Enma Jero oxygen saturation, oximetry 100 % Enma blood pressure, resting Yes Ced velazquez respiratory rate E&M 19 /min Enma weight E&M 160 [lb_av] Enma height E&M 64 [in_i] Enma Body Mass Index (Ratio) 28.32 kg/m2 Tian Washington MD pulse rate 94 /min [facility], diastolic 82 mm[Hg] Jhony ittany Block blood pressure, systolic 160 mm[Hg] Janki james [facility] oxygen saturation, oximetry 99 % [facility] weight E&M 165 [lb_av] [facility] respiratory rate E&M 16 /min [facility] height E&M 64 [in_i] [facility] Body Mass Index (Ratio) 29.35 kg/m2 Tian Washington MD oxygen saturation, oximetry 99 % Rosettestity Barb blood pressure, diastolic 78 mm[Hg] Ch astity Barb blood pressure, systolic 132 mm[Hg] Rosette stity Barb respiratory rate E&M 16 /min Chastit y Barb pulse rate 90 /min Chastity Barb weight E&M 171 [lb_av] Chastity Barb height E&M 64 [in_i] Chastity Barb blood pressure, resting Yes Aly evelyne Day ALLERGIES Allergy Name Onset Date Reaction Criticality Status LOPID High Criticality active RESULTS Date Observation Value Provider Reference Range Interpretation Location calcium, serum 9.7 mg/dL [facility] 8.6-10.4 Normal carbon dioxide, venous blood 28 mmol/L [facility] 20-32 Normal chloride, serum 101 mmol/L [facility] 98-110 Normal potassium, serum 4.4 mmol/L [facility] 3.5-5.3 Normal sodium, serum 137 mmol/L [facility] 135-146 Normal urea nitrogen/creatinine ratio, serum SEE NOTE: (calc) [facility] 6-22 creatinine, serum 0.90 mg/dL [facility] 0.60-0.95 Normal urea nitrogen, blood 12 mg/dL [facility] 7-25 Normal blood glucose, random 171 mg/dL [facility] 65-139 High magnesium, serum 1.9 mg/dL [facility] 1.5-2.5 Normal urine culture (with units of CFunits/mL) SEE NOTE [facility] prothrombin time (patient) 11.0 s [facility] 9.0-11.5 Normal international normalized ratio (INR) 1.1 [facility] Normal basophils as percent of blood leukocytes 1.1 % [facility] Normal eosinophils as percent of blood leukocytes 3.2 % [facility] Normal monocyte count, blood 6.1 % [facility] Normal lymphocyte count, blood 25.6 % [facility] Normal neutrophils as percent of blood leukocytes 64 % [facility] Normal basophils, absolute, manual 100 cells/mcL [facility] 0-200 Normal eosinophils, absolute, manual 291 cells/mcL [facility] 15-500 Normal monocytes, absolute, manual 555 cells/mcL [facility] 200-950 Normal lymphocytes, absolute 2330 CELLS/UL [facility] 850-3900 Normal Absolute Neutrophil count 5824 cells/mcL [facility] 5882-9679 Normal mean platelet volume 11.7 fL [facility] 7.5-12.5 Normal platelet count 196 THOUSAND/UL [facility] 140-400 Normal red blood cell distribution width 13.0 % [facility] 11.0-15.0 Normal mean corpuscular hemoglobin concentration, RBC 32.5 G/DL [facility] 32.0-36.0 Normal mean corpuscular hemoglobin, RBC 29.5 pg [facility] 27.0-33.0 Normal mean corpuscular volume, RBC 90.7 fL [facility] 80.0-100.0 Normal hematocrit, blood 40.0 % [facility] 35.0-45.0 Normal hemoglobin electrophoresis, blood 13.0 [facility] 11.7-15.5 Normal erythrocyte (RBC) count 4.41 MILLION/UL [facility] 3.80-5.10 Normal leukocyte (white blood cells) count, blood 9.1 THOUSAND/UL [facility] 3.8-10.8 Normal hyaline casts, urine NONE SEEN [facility] NONE SEEN Normal bacteria, urine microscopy NONE SEEN [facility] NONE SEEN Normal epithelial cells, urine 0-5 [facility] < OR = 5 RBC urine by microscopy NONE SEEN [facility] < OR = 2 Normal WBC urine on microscopy 0-5 /HPF [facility] < OR = 5 Normal protein, urine, semiquantitative (dipstick) NEGATIVE [facility] NEGATIVE Normal blood in urine (hemoglobin) by dipstick NEGATIVE [facility] NEGATIVE Normal ketones, urine, by test strip NEGATIVE [facility] NEGATIVE Normal bilirubin, urine NEGATIVE [facility] NEGATIVE Normal glucose, urine, semiquantitative NEGATIVE [facility] NEGATIVE Normal pH, urine, semiquantitative 5.5 [facility] 5.0-8.0 Normal specific gravity, urine 1.012 [facility] 1.001-1.035 Normal appearance, urine CLEAR [facility] CLEAR Normal urine color YELLOW [facility] YELLOW Normal PTT patient 27 s [facility] 23-32 Normal alanine aminotransferase (SGPT), serum 22 1/L [facility] 6-29 Normal aspartate aminotransferase (SGOT), serum 21 1/L [facility] 10-35 Normal alkaline phosphatase, serum 43 1/L [facility] 37-153 Normal bilirubin, serum, total 1.6 mg/dL [facility] 0.2-1.2 High albumin/globulin ratio, serum 1.8 (calc) [facility] 1.0-2.5 Normal globulins, serum, total 2.5 G/DL (CALC) [facility] 1.9-3.7 Normal albumin, serum 4.4 g/dL [facility] 3.6-5.1 Normal protein, total, serum 6.9 g/dL [facility] 6.1-8.1 Normal calcium, serum 10.3 mg/dL [facility] 8.6-10.4 Normal carbon dioxide, venous blood 25 mmol/L [facility] 20-32 Normal chloride, serum 102 mmol/L [facility] 98-110 Normal potassium, serum 4.7 mmol/L [facility] 3.5-5.3 Normal sodium, serum 139 mmol/L [facility] 135-146 Normal urea nitrogen/creatinine ratio, serum 19 (calc) [facility] 6-22 Normal Estimated Glomerular Filtration Rate (calc) 57 mL/min/{1.7 3_m2} [facility] > OR = 60 Low creatinine, serum 1.08 mg/dL [facility] 0.60-0.93 High urea nitrogen, blood 20 mg/dL [facility] 7-25 Normal blood glucose, random 131 mg/dL [facility] 65-99 High HISTORY OF MEDICATION USE Medication Status Instructions Dates Provider Indications Com ments furosemide 20 mg tablet active Take 1 tablet by mouth once a day Maynor Washington MD losartan 50 mg tablet active Take 1 tablet by mouth twice a day Rahel Del Rio amlodipine 10 mg tablet active TAKE 1 TABLET BY MOUTH EVERY DAY Maynor Washington MD losartan 50 mg tablet completed 1 tablet twice a day - Rahel Del Rio Xarelto 20 mg tablet active TAKE 1 TABLET BY MOUTH EVERY EVENING WITH EVENING MEAL Mckenna Pickering metoprolol succinate 50 mg tablet extended release 24 hr active Take 1 tablet by mouth once a day TAKE 1 TABLET BY MOUTH ONCE DAILY Rahel Del Rio amiodarone 200 mg tablet active Take 1 tablet by mouth once a day Mckenna Pickering Xarelto 20 mg tablet completed TAKE 1 TABLET BY MOUTH DAILY WITH EVENING MEAL - Rahel Del Rio omega 6-bry-jnz-fish oil 1,000 mg (120 mg-180 mg) capsule active Take 1 capsule by mouth twice a day Rahel Del Rio tramadol 50 mg tablet completed Take 1 tablet by mouth every six hours as needed for pain - Maynor Washington MD tramadol 50 mg tablet completed 1 tablet every six hours as needed - Maynor Washington MD cephalexin 500 mg capsule completed Take 1 capsule by mouth three times a day - Maynor Washington MD levothyroxine 112 mcg tablet active Take 1 tablet by mouth once a day Radha MCKINNON pravastatin 10 mg tablet active Take 1 tablet by mouth once a day Enma Nogueira #90, 90 days supply, Filled 01/05/2021 amlodipine 10 mg tablet completed Take 1 tablet by mouth once a day - Radha MCKINNON #90, 90 days supply, Prescribed by ROSALINA PALACIOS, Filled 01/24/2021 diclofenac sodium 75 mg tablet,delayed release (DR/EC) completed Take 1 tablet by mouth once a day - Enma Nogueira [facility] RED YEAST RICE 600 MG ORAL CAPSULE completed one tab daily - Enma Cespedesby CALCITRATE PLUS D TABLET active 1 tablet once a day Alecorry Huertaue MANAS VITAMIN E 800 UNIT ORAL CAPSULE active 1 tablet once a day Rosetteamadou Day Metamucil 3.4 gram/5.4 gram powder active once a day Rosetteamadou Huertaue aspirin 81 mg tablet,delayed release (DR/EC) completed 1 tablet by mouth once a day - Rahel Del Rio NIACIN 500 MG ORAL TABLET completed one tab daily - Enma Nogueira lisinopril 40 mg tablet completed 1 tablet once a day - Radhanisha Cervantesmiglia MARINATOR #90, 90 days supply, Filled 04/10/2018 LEVOTHYROXINE SODIUM 100 MCG ORAL TABLET completed one tab daily - Enma Cespedesby #90, 90 days supply, Filled 05/28/2018 amitriptyline 25 mg tablet active 1 tablet once a day Alecorry Day #90, 90 days supply, Filled 05/31/2018 SOCIAL HISTORY Date Observation Value Provider drug use no Maynor Bowser alcohol use no Maynor Bowser passive cigarette sm molly exposure no Maynor Washington MD smoking status Former smoker Maynor hardy MD drug use no Radhanisha Cervantesmig jay MARINATOR alcohol use no Radha Ventimig jay MARINATOR passive cigarette sm molly exposure no Anna Mcrae smoking status Former smoker Anna rubin social history reviewed E&M revi ewed - no changes required Maynor Washington MD passive cigarette sm molly exposure no Alyx Campa smoking status Former smoker Alyx galeano social history E&M Marital Statu s: Donato vaughan: 4 O ccupation: Retired Smoking History: P atient is a former smoker. Maynor Washington MD social history reviewed E&M revi ewed - no changes required Maynor Washington MD passive cigarette sm molly exposure no Rahel Cruznfeldinez smoking status Former smoker Rahel Cruz nfelder social history E&M Marital Statu s: Donato vaughan: 4 O ccupation: Retired Smoking History: P atient is a former smoker. Maynor Washington MD social history reviewed E&M revi ewed - no changes required Maynor Washington MD passive cigarette sm molly exposure no Lu Ramires smoking status Former smoker Lu alonso social history reviewed E&M revi ewed - no changes required Maynor Washington MD social history E&M Marital Statu s: Donato vaughan: 4 O ccupation: Retired Smoking History: P atient is a former smoker. Maynor Washington MD social history reviewed E&M revi ewed - no changes required Maynor Washington MD smoking status Former smoker Enma Cespedesby social history E&M Marital Statu s: Donato vaughan: 4 O ccupation: Retired Smoking History: P atient has never smoked. Maynor Washington MD social history reviewed E&M revi ewed - no changes required Maynor Washington MD passive cigarette sm molly exposure no Manuela Read smoking status Never smoker Manuela Bloc k alcohol use no Maynor Bowser passive cigarette sm molly exposure no Maynor Washington MD social history E&M Marital Statu s: Donato vaughan: 4 O ccupation: Retired Smoking History: P atient has never smoked. Maynor Washington MD social history reviewed E&M manohar ortiz - no changes required Maynor Washington MD smoking status Never smoker Blaire castro FAMILY HISTORY Family Member Condition Father Family History of Co ngestive Heart Failure: INSURANCE PROVIDERS Payer name Policy type / Coverage type [place] red green party ID [employer] MEDIC[place] ADV[place] [facility] [place] [id number] ADVANCE DIRECTIVES Name Date DISCUSSED - NO DECISION MADE TREATMENT PLAN Date Name Performer [id number],S,T SH wnl on recent labs on replacement therapy H er updated medication list for this problem includes: Levothyroxine 112 Mcg Tablet (Levothyroxine) ..... Take 1 tablet by mouth [facility] a [facility] [id number],N,H gb A1C was 7% in hospital. she is following with PCP T he following medications were removed from the medication list: Lisinopril 40 Mg Tablet (Lisinopril) ..... 1 tablet once a day Her updated medication list for this problem includes: Aspirin 81 Mg Tablet,delayed Release (dr/ec) (Aspirin) ..... 1 tablet by mouth once a day [facility] [id number],S,B P 147/89 today H as been well controlled per home monitoring W ill continue present regimen. Her norvasc and lisinopril were stopped while in hospital T he following medications were removed from the medication list: Lisinopril 40 Mg Tablet (Lisinopril) ..... 1 tablet once a day Amlodipine 10 Mg Tablet (Amlodipine) ..... Take 1 tablet by mouth once a day H er updated medication list for this problem includes: Metoprolol Succinate 50 Mg Tablet Extended Release 24 Hr (Metoprolol succinate) Aspirin 81 Mg Tablet,delayed Release (dr/ec) (Aspirin) ..... 1 tablet by mouth once a day Ringwood Rachaelrobin [facility] [id number],S,S he had episode of afib/aflutter that took her to the hospital. On exam today appears to be in NSR. No on amiodarone and Metoprolol S he remains on xarelto for AC. Given new onset flutter and associated chest pain will update stress test to r/o ischemia. H er updated medication list for this problem includes: Metoprolol Succinate 50 Mg Tablet Extended Release 24 Hr (Metoprolol succinate) Amiodarone 200 Mg Tablet (Amiodarone) Aspirin 81 Mg Tablet,delayed Release (dr/ec) (Aspirin) ..... 1 tablet by mouth once a day Radha Luz [facility] [id number],N,S he had chest pain that radiated to her left arm. She went to ER troponin without significant delta, thought to be secondary to arrhythmia. Have however, recommended stress test given new atrial flutter, HTN, HLD and DM. Will plan regadenosine stress as may not generate HR with PPM, BB and amiodarone. T he following medications were removed from the medication list: Lisinopril 40 Mg Tablet (Lisinopril) ..... 1 tablet once a day Amlodipine 10 Mg Tablet (Amlodipine) ..... Take 1 tablet by mouth once a day Her updated medication list for this problem includes: Metoprolol Succinate 50 Mg Tablet Extended Release 24 Hr (Metoprolol succinate) Aspirin 81 Mg Tablet,delayed Release (dr/ec) (Aspirin) ..... 1 tablet by mouth once a day [facility] [id number],S,L ast LDL was 84 remains on statin therapy H er updated medication list for this problem includes: Pravastatin 10 Mg Tablet (Pravastatin) ..... Take 1 tablet by mouth once a day Ringwood Rachaelrobin [facility] [id number],S, Maynor hardy MD [id number],S, Maynor hardy MD [id number],S, Maynor hardy MD [id number],S, Maynor hardy MD [id number],B, Maynor hardy MD [id number],S, Maynor hardy MD [id number],B, Maynor hardy MD [id number],S, Maynor hardy MD [id number],S, Maynor hardy MD [id number],S,BP good at ho me Maynor Washington MD [id number],S, Maynor hardy MD [id number],B,S /P PPM with subsequent RV lead dislodgement and repositioning. Pacer check today shows good thresholds and normal function. Patient states she feels better than she has in years. Maynor Washington MD [id number],S, Maynor hardy MD [id number],S, Maynor hardy MD [id number],S, Maynor hardy MD [id number],S, Maynor hardy MD [id number],S, Maynor hardy MD Cardiology:Recheck ECHO in 1 yea r Maynor Washington MD Cardiology Maynor Washington MD Cardiology Maynor Washington MD Cardiology Maynor Washington MD Cardiology Maynor Washington MD Cardiology Maynor Washington MD Cardiology Maynor Washington MD Cardiology:TSH wnl o n recent labs on replacement therapy H er updated medication list for this problem includes: Levothyroxine 112 Mcg Tablet (Levothyroxine) ..... Take 1 tablet by mouth once a day Radha Escobar MARINATOR Cardiology:Hgb A1C w as 7% in hospital. she is following with PCP T he following medications were removed from the medication list: Lisinopril 40 Mg Tablet (Lisinopril) ..... 1 tablet once a day Her updated medication list for this problem includes: Aspirin 81 Mg Tablet,delayed Release (dr/ec) (Aspirin) ..... 1 tablet by mouth once a day [facility] Cardiology:BP 147/89 today H as been well controlled per home monitoring W ill continue present regimen. Her norvasc and lisinopril were stopped while in hospital T he following medications were removed from the medication list: Lisinopril 40 Mg Tablet (Lisinopril) ..... 1 tablet once a day Amlodipine 10 Mg Tablet (Amlodipine) ..... Take 1 tablet by mouth once a day Her updated medication list for this problem includes: Metoprolol Succinate 50 Mg Tablet Extended Release 24 Hr (Metoprolol succinate) Aspirin 81 Mg Tablet,delayed Release (dr/ec) (Aspirin) ..... 1 tablet by mouth once a day [facility] Cardiology:She had e pisode of afib/aflutter that took her to the hospital. On exam today appears to be in NSR. No on amiodarone and Metoprolol S he remains on xarelto for AC. Given new onset flutter and associated chest pain will update stress test to r/o ischemia. H er updated medication list for this problem includes: Metoprolol Succinate 50 Mg Tablet Extended Release 24 Hr (Metoprolol succinate) Amiodarone 200 Mg Tablet (Amiodarone) Aspirin 81 Mg Tablet,delayed Release (dr/ec) (Aspirin) ..... 1 tablet by mouth once a day [facility] Cardiology:She had c hest pain that radiated to her left arm. She went to ER troponin without significant delta, thought to be secondary to arrhythmia. Have however, recommended stress test given new atrial flutter, HTN, HLD and DM. Will plan regadenosine stress as may not generate HR with PPM, BB and amiodarone. T he following medications were removed from the medication list: Lisinopril 40 Mg Tablet (Lisinopril) ..... 1 tablet once a day Amlodipine 10 Mg Tablet (Amlodipine) ..... Take 1 tablet by mouth once a day Her updated medication list for this problem includes: Metoprolol Succinate 50 Mg Tablet Extended Release 24 Hr (Metoprolol succinate) Aspirin 81 Mg Tablet,delayed Release (dr/ec) (Aspirin) ..... 1 tablet by mouth once a day Radhanisha Canomishel [facility] Cardiology:Last LDL was 84 remains on statin therapy H er updated medication list for this problem includes: Pravastatin 10 Mg Tablet (Pravastatin) ..... Take 1 tablet by mouth once a day Ringwood Luz [facility] Cardiology Maynor Washington MD Cardiology Maynor Washington MD Cardiology Maynor Washington MD Cardiology Maynor Washington MD Cardiology Maynor Washington MD Cardiology Maynor Washington MD Cardiology Maynor Washington MD Cardiology Maynor Washington MD Cardiology Maynor Washington MD Cardiology:BP good at home Maynor Washington MD Cardiology Maynor Washington MD Cardiology Hospital follow up :S/P PPM with subsequent RV lead dislodgement and repositioning. Pacer check today shows good thresholds and normal function. Patient states she feels better than she has in years. Maynor Washington MD Cardiology Hospital follow up Ra baudilio Washington MD Cardiology Hospital follow up Ra baudilio Washington MD Cardiology Hospital follow up Ra baudilio Washington MD Cardiology Hospital follow up Ra baudilio Washington MD Cardiology Hospital follow up Ra baudilio Washington MD Cardiology Maynor Washington MD Cardiology Maynor Washington MD Cardiology Maynor Washington MD Cardiology:Normal EC HO. W ill check stress test. Maynor Washington MD Cardiology Maynor Washington MD Cardiology Maynor Washington MD Cardiology Maynor Washington MD Cardiology:Recheck ECHO in a dennisea r Maynor Washington MD Cardiology Maynor Washington MD Cardiology Maynor Washington MD Cardiology Maynor Washington MD Cardiology Maynor Washington MD Cardiology Maynor Washington MD Cardiology Maynor Washington MD Cardiology Maynor Washington MD Cardiology Maynor Washington MD Date Name Complete Echo Stress Regadenoson DLCO - 39866 FRC - 71912 FVC - 78113 Complete Echo MAGNESIUM BASIC METABOLIC PANE L W/EGFR Complete Echo X-Ray, Chest - Routi ne CXR- PA/Lat URINALYSIS, COMPLETE W/REFLEX TO CULTURE PROTHROMBIN TIME WIT H INR Partial Thromboplast in Time, Activated CBC (INCLUDES DIFF/P LT) COMPREHENSIVE METABO LIC PANEL, W/EGFR Stress Exercise Card iolite Complete Echo Complete Echo Complete Echo HISTORY OF PROCEDURES Procedure Date Procedure Name Provider Procedure Notes S tatus EKG Maynor Washington MD complete d Holter, 24 or 48 Maynor Washington MD co mpleted EKG Maynor Washington MD complete d
--- OUTSIDE RECORDS SUMMARY | 2024-10-24 15:22 | XMS_ITS | Encounter Summary ---
Author Organization [facility] Healthcare Address [address] [place] [address] Care Team Providers Care Boiler House Supervisor Name Role Phone Padmini Lauren MD, Maynor Curiel Unavailable Tito Steinberg MD Unavailable [phone] Melanie Oconnor NP Primary Care Provider [phone] Vicky Cummins MD Unavailable [phone] Liz Burns NP Unavailable Reason for Visit * Reason Onset Date Comments Urinary Problem 10/24/2024 Encounter Details Date Type Department Care Team (Late st Contact Info) Description 10/24/2024 Nurse Triage [facility] Primary Care at [address] [place] [address] Melanie Oconnor NP [address] [place] [address] [address] [place] [address] Social History Tobacco Use Types Packs/Day Years Used Date Smoking Tobacco: Never Passive Smoke Exposure: Never Smokeless Tobacco: Never Alcohol Use Standard Drinks/Week Comments No 0 (1 standard drink = 0.6 oz pur e alcohol) [facility] Utilities Answer Date Recorded In the past [...] often do you attend chur ch or oriental orthodox services? More than 4 times per year 12/17/2023 Do you belong to any clubs o r organizations such as voodoo groups, unions, fraternal or athletic groups, or [...] place to sleep or slept in a half-way (including now)? No 12/17/2023 Personal Safety Answer [...] on file Legal Sex Female 6:07 PM STOPPERER ASSEMBLER Gender Identity Female 10/16/2021 7:51 PM STOPPERER ASSEMBLER Sexual Orientation Not on file documented as of this encounter Miscellaneous Notes * Telephone Encounter - Mariela Urrutia RN - 10/24/2024 12:56 PM STOPPERER ASSEMBLER Pt calls into manager emergency after having 4-5 days of intermittent burning with urination. Pt denies back pain, fever, vomiting, chills, lower abdominal pain. Pt did take at home uti test and was positivefor nitrates and leukocytes. Pt reports this does not feel like a previous UTI. Pt advised to be seen and will go to local UC. Pt advised to stay hydrated, call back with fever or lower back pain. Ptagrees. No, protocol not utilized because of: Symptoms not consistent with prior UTI Reason for Disposition Age > 50 years Protocols used: Urination Pain - [id number] PERER ASSEMBLER * Telephone Encounter - Mariela Urrutia RN - 10/24/2024 12:47 PM STOPPERER ASSEMBLER Regarding: Burning with urination ----- Message from Renetta David sent at 10/24/2024 10:52 AM STOPPERER ASSEMBLER ----- Symptom Based Call Chief Complaint(s): Burning with urination Duration: Few days What type of symptom(s) is the patient experiencing? Non-Emergent. Is this a new or reoccurring symptom(s)? New What have you tried to help your symptom(s)? Nothing Why was appointment not scheduled? Appointment availability did not meet the patient's need. Additional Comments: Patient states that she took urine test last night and this morning, results came back with positive leukocytes. Does message need to be routed? Yes-Action Needed PERER ASSEMBLER documented in this encounter Plan of Treatment Not on file documented as of this encounter Visit Diagnoses Not on filedocumented in this encounter Care Teams Boiler House Supervisor Relationship Specialty Start Date End Date Melanie Oconnor NP [address] [facility] [address] [place] [address] PCP - General Family Medicine 08/30/22 Maynor Washington Jr., MD [address] [place] [address] Consulting Physician Cardiovascular Disease 09/01/21 Tito Steinberg MD [address] [place] [address] Referring Physician Ophthalmology 03/01/22 Vicky Cummins MD [address] [facility] [address] [place] [address] Consulting Physician Gastroenterology 12/14/23 Liz Burns NP [address] [place] [address] Nurse Practitioner 05/05/24 documented as of this encounter
--- OUTSIDE RECORDS SUMMARY | 2024-10-24 15:22 | XMS_ITS | Continuity of Care Document ---
Author Organization [facility] Address [address] [facility] [address] [place] [id number] Phone Care Team Providers Care Picker/Puller Name Role Phone Rajni HUTCHISON FACS, Samy Breen Unavailab le Allergies, Adverse Reactions, Alerts Substance Reaction Status Criticality gemfibrozil Active No Information Medications Medication Instructions Dosage Effective Dates (start - stop) Status Comments Xdemvy 0.25 % eye drops instill 1 drop by ophthalmic route every 12 hours for 6 weeks into both eyes 1.00 drop - Active timolol maleate (PF) 0.5 % eye drops in a dropperette instill 1 drop by ophthalmic route 2 times every day into both eyes 1 drop - Active timolol maleate 0.5 % eye drops instill 1 drop by ophthalmic route 2 times every day in both eyes 1 drop - Active 90 day supply iVizia (PF) 0.5 % eye drops instill 1 drop by ophthalmic route 2 times every day 1 drop - Active metoprolol succinate ER 25 mg tablet,extended release 24 hr take 1 tablet by oral route every day 25 MG - Active amiodarone 200 mg tablet take 1 tablet by oral route every day 200 MG - Active losartan 25 mg tablet take 1 tablet by oral route every day 25 MG - Active amlodipine 5 mg tablet take 1 tablet by oral route every day 5 MG - Active pravastatin 20 mg tablet take 2 tablet by oral route every day 40 MG - Active Vitamin D3 2,000 unit capsule take 1 by oral route every day 1 - Active Calcium 500 With D 500 mg (1,250 mg)-400 unit tablet 1 tablet once a day by mouth - Active vitamin E 600 unit capsule take 1 by oral route every day - Active Tirosint 100 mcg capsule take 1 capsule by oral route every day 100 MCG - Active Amitriptyline 25 mg Tab take 1 tablet (25MG) by ORAL route every day at bedtime 25 MG - Active Procedures Procedure Date Xcellent A 3000 60 C Office/outpatient Visit, Est Visual Field Examination(s) SCODI, Posterior Segment Office/outpatient Visit, Est No Charge [facility] Fundus Photos 024 Fundus Photography W/ Report Office/outpatient Visit, Est Office/outpatient Visit, Est Visual Field Examination(s) SCODI, Posterior Segment No Charge [employer] Fundus Photos 023 Office/outpatient Visit, Est Fundus Photography W/ Report Visual Field Examination(s) Office/outpatient Visit, Est Office/outpatient Visit, Est Office/outpatient Visit, Est No Charge [employer] Fundus Photos Office/outpatient Visit, Est Visual Field Examination(s) SCODI, Posterior Segment No Charge [facility] Fundus Photos 022 Office/outpatient Visit, Est SCODI, Posterior Segment Refraction No Charge [employer] Fundus Photos 021 Eye Exam & Treatment Fundus Photography W/ Report Office/outpatient Visit, Est Refraction Fundus Photography W/ Report Office/outpatient Visit, Est Visual Field Examination(s) Fundus Photography W/ Report Office/outpatient Visit, Est Visual Field Examination(s) SCODI, Posterior Segment Eye Exam & Treatment Visual Field Examination(s) SCODI, Posterior Segment Eye Exam & Treatment No Charge Refraction Visual Field Examination(s) Eye Exam & Treatment Visual Field Examination(s) No Charge Pachymetry SCODI, Posterior Segment Eye Exam & Treatment No Charge Refraction Visual Field Examination(s) Eye Exam & Treatment Eye Exam & Treatment Visual Field Examination(s) Eye Exam & Treatment Visual Field Examination(s) Eye Exam & Treatment Visual Field Examination(s) Optic Nerve Topography Optic Nerve Topography Eye Exam & Treatment Post-op Follow-up Visit Post-op Follow-up Visit Post-op Follow-up Visit Remove Cataract, Insert Lens PreOp Assessment Performed Office/outpatient Visit, Est Script Printed/Phoned Pt Requ Or Pharm N ot Availab IOLMaster-Professional Cataract Kit SEC MV Sales Tax Eye Exam & Treatment Optic Nerve Head Eval Visual Field Examination(s) Eye Exam & Treatment Optic Nerve Head Eval Office/outpatient Visit, Est Advance Directives Directive Yes / No Effective Date File Name No Information Encounters Encounter Description Practice Location Reason(s) For Visit Diagnoses Date Provider Providers Copied on Encounter [facility], [address] [place] [address] [address], [place], [place], [address], tel:[phone] SEC [place] MICHELLE No Information 5 Rajni Pablo. [address] [place] [address] [facility], [address], [place], [place], [address], [place]. tel:[phone] [facility], [address] [place] [address] [address], [place], [place], [address], tel:[phone] SEC Luis ROSADO Professional No Information 5 Cecilia OD Karen. [address] [place] [address] [address], [address], [place], [place], [address], [place]. tel:[phone] Referring Provider: Samy Griffith, [address] [place] [address] [facility] [address], [place], [address] . tel:[phone] Office/outpa tient Visit, [facility], [address] [place] [address] [address], [place], [place], [address], tel:[phone] SEC [place] Professional dry eye follow up (chief complaint) Dry eye syndrome of bilateral lacrimal glandsInfesta tion by Demodex 5 Cecilia OD Karen. [address] [place] [address] [address], [address], [place], [place], [address], [place]. tel:[phone] Maynor Washington MD.Referri ng Provider: Samy Griffith, [address] [place] [address] [facility] [address], [place], [address] . tel:[phone] Office/outpa tient Visit, [facility], [address] [place] [address] [address], [place], [place], [address], [place] tel:[phone] SEC [place] Professional Complete Exam (chief complaint) Dry eye syndrome of bilateral lacrimal glandsPrimary open angle glaucoma (POAG) of right eye, mild stagePrimary open angle glaucoma (POAG) of left eye, moderate stagePseudoph penny of both eyesNeurotrop hic keratoconjunc tivitis of both eyes Dec-0 9-202 4 Cecilia OD Karen. [address] [place] [address] [facility] [address], [address], [place], [place], [address], [place]. tel:[phone] Maynor Washington MD.Referri ng Provider: Samy Griffith, [facility] [address], [place], [address] . tel:[phone] Office/outpa tient Visit, [facility], [address] [place], [place] [address], [place], [place], [address], [place] tel:[phone] SEC Luis ASHLEE Professional 6 mo IOP check (chief complaint) Dry eye syndrome of bilateral lacrimal glandsPrimary open-angle glaucoma, bilateral, moderate stage Mar-0 5-202 4 Cecilia OD Karen. [address] [place], [place] [address], [address], [place], [place], [address], [place]. tel:[phone] Maynor Washington MD.Referri ng Provider: Samy Griffith, [facility] [place] [facility] [facility] [address], [place], [address] . tel:[phone] Office/outpa tient Visit, [facility], [address] [place], [place] [address], [place], [place], [address], [place] tel:[phone] SEC [place] ASHLEE Professional Laser procedure (chief complaint) Primary open-angle glaucoma, bilateral, moderate stage Sep-0 -202 3 Rajni Pablo. [facility] [place] [place] [address] [employer], [address], [place], [place], [address], [place]. tel:[phone] Maynor Washington MD.Referri ng Provider: Samy Griffith, [facility] [place] [facility] [address], [place], [address] . tel:[phone] Office/outpa tient Visit, [facility], [address] [place], [place] [address] [address], [place], [place], [address], [place] tel:[phone] SEC Luis [place] Professional Complete Exam (chief complaint) Drusen (degenerative ) of macula, bilateralDry eye syndrome of bilateral lacrimal glandsPrimary open-angle glaucoma, bilateral, moderate stage Apr-2 2- 3 Cecilia OD Karen. [address] [place], [place] [address], [address], [place], [place], [address], . tel:[phone] Maynor Washington MD.Referri ng Provider: Karen Brooks OD K, [address] [place], [place] [address], [place], [address] . tel:[phone] Office/outpa tient Visit, [facility], [address] [place], [place] [address], [place], [place], [address], tel:[phone] [employer] [place] Professional 6 month IOP check w/VF (chief complaint) Primary open-angle glaucoma, bilateral, moderate stageDry eye syndrome of bilateral lacrimal glands Fe-0 - 3 Carlos OD Dahlia. [address] [place], [place] [address], [address], [place], [place], [address], [place]. tel:[phone] Maynor Washington MD.Referri ng Provider: Tito David, [address] [facility], [place], [address] . tel:[phone] Office/outpa tient Visit, [facility], [address] [place] [address] [address], [place], [place], [address], [place] tel:[phone] [employer] Luis [place] Professional 1 month IOP check (chief complaint) Primary open-angle glaucoma, bilateral, mild stage Apr-1 0-202 2 Carlos OD Dahlia. [facility] [place], [address], [place], [place], [address], [place]. tel:[phone] Maynor Washington MD.Referri ng Provider: Tito David, [address] [facility] [employer] [address], [place], [address] . tel:[phone] Office/outpa tient Visit, [facility], [address] [place] [address] [address], [place], [place], [address], [place] tel:[phone] SEC Luis ROSADO Professional 3 week IOP check (chief complaint) Primary open-angle glaucoma, bilateral, mild stage Julio C-0 2 Carlos OD Dahlia. [address] [place] [address] [facility], [address], [place], [place], [address], [place]. tel:[phone] Maynor Washington MD.Referri ng Provider: Tito David, [address], [place], [address] . tel:[phone] Office/outpa tient Visit, [facility], [address] [place] [address] [address], [place], [place], [address], [place] tel:[phone] SEC Luis ROSADO Professional 1 month IOP check after starting glaucoma gtt (chief complaint) Primary open-angle glaucoma, bilateral, mild stage Feb- 2 Carlos OD Dahlia. [address] [place] [address] [employer], [address], [place], [place], [address], [place]. tel:[phone] Maynor Washington MD.Referri ng Provider: Tito David, [address], [place], [address] . tel:[phone] Office/outpa tient Visit, [facility], [address] [place] [address] [address], [place], [place], [address], [place] tel:[phone] SEC Luis ROSADO Professional Complete Exam (chief complaint) Primary open-angle glaucoma, bilateral, mild stageDry eye syndrome of bilateral lacrimal glands 2 Idris Francis. [address], [address], [place], [place], [address], [place]. tel:[phone] Maynor Washington MD.Referri ng Provider: Tito David [address], [place], [address] . tel:[phone] [facility], [address], [place], [place], [address], [place] tel:[phone] SEC Luis ROSADO Professional 6 mo Complete exam (chief complaint) Glaucoma suspect of both eyesBilateral artificial lens implantDry eye syndrome of bilateral lacrimal glandsOther secondary cataract, right eye 1 Idris Francis. [address], [address], [place], [place], [address], [place]. tel:[phone] Maynor Washington MD.Referri ng Provider: Tito David, [address], [place], [address] . tel:[phone] [facility], [address] [place] [address] [address], [place], [place], [address], [place] tel:[phone] SEC Luis ROSADO Professional No Information 1 Idris Francis. [address], [address], [place], [place], [address], [place]. [phone] Specialist : [place], [address], [address]. tel:[phone] Office/outpa tient Visit, [facility], [address] [place] [address] [address], [place], [place], [address], [place] tel:[phone] SEC Luis ROSADO Professional 4 month IOP check (chief complaint) Glaucoma suspect of both eyes 0 Idris Francis. [address], [address], [place], [place], [address], [place]. tel:[phone] Referring Provider: Tito David, [address], [place], [address] . tel:[phone] Office/outpa tient Visit, [facility], [address], [place], [place], [address], [place] tel:[phone] SEC Luis ROSADO Professional glaucoma, pressure check (chief complaint) Glaucoma suspect of both eyes Mar-0 0 Luis E OD Ralph. [address] [facility], [address] [place] [address], [place], [address], [place]. tel:[phone] Referring Provider: [place], [address] [place] [address], [place], [address]. tel:[phone] Office/outpa tient Visit, Est [facility] Medicine in Practice [facility], [address], [place], [place], [address], [place] tel:[phone] SEC Luis ROSADO Professional 6 week IOP check (chief complaint) Glaucoma suspect of both eyesVitreous degeneration, bilateral 0 Luis E OD Ralph. [address] [place] [address], [place], [address], [place]. tel:[phone] Referring Provider: Ralph Kimbrough OD R, [address] [place] [address], [place], [address]. tel:[phone] [facility] Medicine [facility] Practice [facility], [address], [place], [place], [address], [place] tel:[phone] SEC Luis ROSADO Professional Complete Exam (chief complaint) Glaucoma suspect of both eyesBilateral artificial lens implantRPE mottling of maculaVitreou s degeneration, bilateral Feb-0 5-202 0 Luis E OD Ralph. [address] [facility], [address] [place] [address], [place], [address], [place]. tel:[phone] Referring Provider: [place], [address] [place] [address], [place], [address]. tel:[phone] [facility] Medicine in Practice [facility], [address], [place], [place], [address], [place] tel:[phone] SEC Sue Raygoza No Information 0 Luis E OD Ralph. [address] [place] [address], [place], [address], [place]. tel:[phone] [facility], [address], [place], [place], [address], [place] tel:[phone] SEC [place] Professional Complete Exam (chief complaint) Bilateral artificial lens implantGlauco ma suspect of both eyesVitreous degeneration, bilateralRPE mottling of maculaOther secondary cataract, right eye Feb-2 [address] [facility] [place], [address], [place]. tel:[phone] Referring Provider: Tito David, [address] [facility] [place], [place], [address] . tel:[phone] [facility], [address], [place], [place], [address], [place] tel:[phone] SEC Luis [place] Professional No Information 2 [address] [facility] [address], [place], [place], [address], [place]. tel:[phone] [facility], [address], [place], [place], [address], [place] tel:[phone] SEC Luis [place] Professional Complete Exam (chief complaint) Glaucoma suspect of right eyeGlaucoma suspect of left eyeBilateral pseudophakiaA fter cataract of right eye not obscuring visionDrusen (degenerative ) of macula, bilateral b-0 [address] [facility], [place], [address], [place]. tel:[phone] Referring Provider: Trae Griffith, [address] [facility] [place], [place], [address] . tel:[phone] [facility], [address], [place], [place], [address], [place] tel:[phone] SEC Luis [place] Professional Complete Exam (chief complaint) No Information b-0 1-201 7 Yesica Larkin. [address], [place], [address], . tel:[phone] Referring Provider: Trae Griffith, [address] [facility] [address], [place], [address] . tel:[phone] [facility], [address] [address], [place], [place], [address], tel:[phone] SEC Luis [place] Professional Yearly (chief complaint) No Information Nov-0 4-201 5 Wankazael Larkin. [address] [facility], [place], [address], . tel:[phone] Referring Provider: Trae Griffith, [address] [facility] [place], [address] . tel:[phone] [facility], [address], [place], [place], [address], tel:[phone] SEC Luis [place] Professional floaters (chief complaint) No Information Oct-2 7-201 4 Yesica Larkin. [address], [place], [address], . tel:[phone] Referring Provider: Trae Griffith, [address] [facility] [place], [address] . tel:[phone] [facility], [address], [place], [place], [address], [place] [phone] SEC Luis [place] Professional No Information Nov-3 0-201 2 Wanskylar Larkin. [address], [place], [address], . tel:[phone] [facility], [address], [place], [place], [address], [place] tel:[phone] SEC Luis ROSADO Professional No Information Nov-2 6-201 2 Wanskylar Larkin. [address] [facility], [address] [place], [address], . tel:[phone] Referring Provider: Trae Griffith, [address] [facility] [place], [address] . tel:[phone] [facility], [address], [place], [place], [address], tel:[phone] SEC Luis ROSADO Professional No Information Raghavendra-1 0-201 1 Wanskylar Larkin. [address] [facility], [facility] [place], [address], . tel:[phone] Referring Provider: Trae Griffith, [address] [facility] [place], [address] [place] [address] . tel:[phone] [facility], [address], [place], [place], [address], [place] tel:[phone] SEC Luis ROSADO Professional No Information Nov-1 5-201 0 Yesica Larkin. [address] [facility], [facility] [place], [address], . tel:[phone] Referring Provider: Trae Griffith, [address] [facility] [place], [address] . tel:[phone] [facility], [address] [address], [place], [place], [address], [place] tel:[phone] SEC Luis ROSADO Professional No Information Raghavendra-0 1-201 0 Wanskylar Larkin. [address] [facility], [facility] [place], [address], [place]. tel:[phone] [facility], [address], [place], [place], [address], [place] tel:[phone] SEC [facility] Professional No Information Nov-3 0-200 9 Yesica Larkin. [address] [facility], [address], [place], [place], [address], [place]. tel:[phone] [facility], [address], [place], [place], [address], [place] tel:[phone] SEC [facility] Professional No Information Nov-0 6-200 9 Yesica Larkin. [address] [facility], [address], [place], [place], [address], [place]. tel:[phone] [facility], [address], [place], [place], [address], [place] tel:[phone] SEC [facility] Professional No Information Oct-3 0-200 9 Lakhwinder Shanta. [address], [address], [place], [place], [facility], [place]. tel:[phone] [facility], [address], [place], [place], [address], [place] tel:[phone] [facility] No Information Oct-2 9-200 9 Krishnasamy Chilango. [facility] [address], [facility], . tel:[phone] Referring Provider: Trae Griffith, [address] [facility] [address], [place], [address] . tel:[phone] Office/outpa tient Visit, Est [facility], [address], [place], [place], [address], [place] tel:[phone] SEC [facility] Professional No Information Oct-0 1-200 9 Krishnasamy Chilango. [address], [facility], [place]. tel:[phone] Referring Provider: Trae Griffith, [address] [facility] [place], [address] . tel:[phone] [facility], [address] [place] [address] [address], [place], [place], [address], tel:[phone] SEC Sasser ASHLEE Professional No Information 2 8-200 9 Yesica Larkin. [address] [facility], [facility] [place], [address], . tel:[phone] Referring Provider: Trae Grifftih, [address] [place], [address] . tel:[phone] [facility], [address] [place] [address] [address], [place], [place], [address], tel:[phone] SEC Sasser ASHLEE Professional No Information 0 4-200 8 Yesica Larkin. [address] [facility], [facility] [place], [address], . tel:[phone] Office/outpa tient Visit, [facility], [address] [place] [address] [address], [place], [place], [address], tel:[phone] SEC Sasser ASHLEE Professional No Information 2 2-200 7 Yesica Larkin. [address] [facility], [facility] [place], [address], . tel:[phone] Family History Family Member Type Diagnosis Age At Onset Mother Problem (finding) Aneurysm Father Problem (finding) Heart Disease Sister Problem (finding) Heart Disease Mother Problem (finding) Arthritis Sister Problem (finding) Diabetes mellitus Payers Payer name Insurance type Covered alliance party ID Authoriza tion(s) No Information Social History Type Description Quantity Date Captured Comments Alcohol Use Details Unknown Caffeine Use Details Unknown Tobacco Use Status No Information Smoking Status No Information Sex Female Chief Complaint And Reason For Visit No Information Reason For Referral Reason For Referral No Information Plan Of Treatment Date Type Action Status Appointment Rehana Soto BOOKED Patient Education Open-Angle Glaucoma: Ca re Instructions completed Patient Education Dry Eyes: Care Instruct ions completed Patient Education Open-Angle Glaucoma: Ca re Instructions completed Patient Education Open-Angle Glaucoma: Ca re Instructions completed Patient Education Open-Angle Glaucoma: Ca re Instructions completed Patient Education Learning About Vitreous Detachment completed History Of Present Illness Encounter Date Complaint History Of Prese nt Illness dry eye follow up The 83 year ol d patient presents for a 6 week dry eye follow up. Patient uses Ivizia and states it helps. Patient states her eyes are pretty good today. Speed score 5/28 TBUTT OD 5.54 OS 5.74 Complete Exam The 83 year old patient presents for evaluation of Complete Exam in the right eye and left eye. Pt states no changes in OU since last visit. Pt noticed a Stye like bump on LLL and pt states no pain or discomfort. Pt states that they noticed it a couple weeks ago and seems like it has been getting better recently. 6 mo IOP check The 82 year old patient presents for evaluation of 6 mo IOP check in the right eye and left eye. Patient being monitored for POAG, taking Timolol BID OU, last dose was this morning. Patient states no changes since last visit. Sent in refills for Timolol Laser procedure The 82 year old patient presents for a SLT evaluation per Dr. Brooks. Patient is using Timolol bid ou. Complete Exam The 82 year old patient presents for a complete POAG ou IOP check. Patient is using Timolol bid ou. Patient is pseudo ou. Patient denies any changes in vision ou. 6 month IOP check w/VF The 81 ye ar old patient presents for evaluation of 6 month IOP check w/VF in the right eye and left eye. Patient states sometimes in the morning the left eye gets blurry for a bit then clears up. Patient using Idris BID OU last used @ 10am. 1 month IOP check The 81 year ol d patient presents for evaluation of 1 month IOP check in the right eye and left eye after switching glaucoma gtt. Patient denies any changes with eyes. Patient using Idris BID OU last used @ 9am. 3 week IOP check The 81 year old patient presents for evaluation of 3 week IOP check in the right eye and left eye. Patient denies any problems or changes with eyes. Patient using Brim BID OU last used last night patient forgot this am. [address] starting glaucoma gtt The 81 year old patient presents for evaluation of 1 month IOP check after starting glaucoma gtt in the right eye and left eye. Patient denies any problems or changes with eyes. Patient using Ami qd OU last used last night. Complete Exam The 81 year old patient presents for evaluation of Complete Exam in the right eye and left eye. Hx of Glaucoma Suspect OU, PCIOL OU, YAG PC OS, PVD OU, and RPE OD. Patient denies any problems or changes with eyes. Not on any gtts at this time. 6 mo Complete exam The 80 year o ld female presents for evaluation of 6 mo Complete exam with OCT-ON in the right eye and left eye. Hx of PCIOL OU, YAG PC OS, PCO OD, RPE OD, Dermatochalasis OS, PVD OU, and Glaucoma suspect OU. Pt reports stable VA, OU, DV and NV, since last appt. Pt reports she doesn't use any gtts, OU. 4 month IOP check The 79 year ol d female presents for evaluation of 4 month IOP check in the right eye and left eye. Hx of PCIOL OU, YAG PC OS, PVD OU, and Glaucoma Suspect OU. Patient denies any problems or changes with eyes. Patient not on any gtts at this time. glaucoma, pressure check The 79 year old female presents for a 3 1/2 month IOP check. Patient is a glaucoma suspect ou. Patient is not using any drops. Patient denies any changes in vision ou. 6 week IOP check The 79 year old female presents for evaluation of 6 week IOP check in the right eye and left eye and VF OS only. Patient denies any problems or changes with VA. Patient doesn't want to be checked for new glasses states doctor told her they are scratched but patient states she sees fine. Not on any gtts at this time. Complete Exam The 78 year old female presents for evaluation of Complete Exam in the right eye and left eye. Hx of PCIOL OU, YAG PC OS, PVD OU, RPE Mottling OD, and Glaucoma Suspect OU. Patient denies any problems or changes with eyes. Not on any gtts at this time. Patient does NOT want a new rx today Complete Exam The 77 year old female presents for a complete IOP check due to cupping. Patient doesn't use any drops. Patient is pseudo ou with yag cap OS. Patient denies any changes in vision ou. Complete Exam The 76 year old female presents for Complete Exam with VF 24-2 in the right eye and left eye. No OCT-ON due to RI in office. Hx of PCIOL OU, YAG PC OS, trace PCO OD, and cupping OU. Pt reports she doesn't use any gtts and no pain, irritation or discomfort today, OU. Pt reports she thinks OS might be a little bit blurrier, x few mos, even when she is wearing her gls, but admits it may be her imagining it. Complete Exam The 75 year old female presents for Complete Exam ou monitoring cupping. Patient doesn't use any drops. Patient got glasses since last visit so she could see better at syn[employer]. Patient c/o OS seems blurry. Yearly The 74 year old female presents for Complete exam for Optic Disc Cupping and Phaco c IOL OU. Patient denies any pain , redness, discharge, from the eyes. Patient says she does notice more blurry vision on her left eye, but not enough that she feels she is ready for a new glasses Rx. Patient states she is not taking any eye drops. Wears reading glasses to see up close. floaters Patient presents for a complete exam. Patient c/o floaters ou but worse OS. Functional Status Date Functional Assessmen t No Information Instructions Date Instruction Additional Infor norma Impression/Plan Impression/Plan Impression/Plan Impression/Plan Impression/Plan Impression/Plan Impression/Plan Impression/Plan Impression/Plan Impression/Plan Impression/Plan Impression/Plan Impression/Plan Impression/Plan Impression/Plan Impression/Plan Impression/Plan - IO P within normal range OU, with optic disc cupping OU. Visual mistry are WNL OU. RTC 1 year for complete exam and 24-2 visual mistry and OCT ON or sooner with problems. Impression/Plan - Di scussed exam findings with patient. IOL's in good position, pco OD, open pc OS. Will continue to monitor. 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 Condition appears to be mild at this time and not affecting patients vision. Will continue to monitor. Related to After cataract of right eye not obscuring vision Impression/Plan - Co ndition appears stable OU, will continue to monitor. 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 for Complete Exam with HVF 24-2 and OCT ON. 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 IOL's in good position pcf OD, open OS. IOP within normal range with optic disc cupping. Normal OCT ON and visual mistry OU. Return to clinic in 1 year for complete exam with IOP check, 24-2 visual mistry and OCT ON or sooner with any problems. Follow up - Return i n 1 year with Trae Robert M.D. for Complete Exam , IOP check with VF , OCT (ON). 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 IOP and visual mistry are normal. No treatment needed at this time. Will continue to monitor. Return in 1 year for complete exam with 24-2 visual mistry or sooner with any problems. Follow up - Return i n 1 year with Trae Robert M.D. for Complete Exam. 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
--- OUTSIDE RECORDS SUMMARY | 2024-10-24 15:22 | XMS_ITS | Clinical Summary ---
Author Organization [facility] Address [address] [place] [address] Care Team Providers Care Professor Of Kinesiology Name Role Phone Padmini Lauren MD, Maynor Curiel Unavailable Tito Steinberg MD Unavailable Melanie Oconnor NP Primary Care Provider [phone] Vicky Cummins MD Unavailable Liz Burns NP Unavailable Allergies Active Allergy Reactions Criticality Noted Date [...] mcg tabletIndications: Acquired hypothyroidism TAKE 1 TABLET PRODUCTION SUPERINTENDENT HYDRO BEFORE BREAKFAST 90 tablet 3 4 Active [...] Nephrology Assessment & Plan (11/05/2023 2:38 PM DINKEY LOCOMOTIVE ENGINEER): -chronic, slightly worsening -Discussed/ordered labs -continue working [...] Diabetes Complications History of macrovascular disease (CVA, UT, PVD) is Present. Complications secondary to Diabetes [...] 250 for 3 days Paroxysmal atrial fibrillation ([facility]) 023 Assessment & Plan (05/05/2024 2:23 PM CDT): -chronic, stable -Discussed/ordered labs -continue on amiodarone 200 mg daily and Xarelto 20 mg daily -continue seeing Cardiology Assessment & Plan (08/30/2023 4:04 PM DINKEY LOCOMOTIVE ENGINEER): Acute problem- this is a new problem [...] daily Assessment & Plan (11/05/2023 2:37 PM DINKEY LOCOMOTIVE ENGINEER): -chronic, stable -Discussed/ordered labs -continue on vitamin D3 5000 units daily Assessment & Plan (08/30/2023 3:59 PM DINKEY LOCOMOTIVE ENGINEER): Chronic problem-stable Continue vitamin D3 5,000 international [...] daily Assessment & Plan (08/29/2022 10:30 AM DINKEY LOCOMOTIVE ENGINEER): HPI: Condition is stable A&P: Discussed/ordered labs, [...] capsules 5000 units daily-this will be a terminal supervisor medication Glaucoma of both eyes 03/01/2022 Assessment & Plan (03/02/2023 7:14 AM CDT): HPI: Condition is stable A&P: Continue seeing Dr. Steinberg at [facility] and using xalatain eyedrops nightly bilaterally Assessment & Plan (08/30/2022 10:50 AM DINKEY LOCOMOTIVE ENGINEER): Condition is controlled. Patient is seeing Dr. Steinberg at [facility] Continue using xalatain eyedrops nightly bilaterally Assessment & Plan (03/01/2022 9:31 AM CDT): Sees Dr. Steinberg at [facility]. Using xalatain eye drops nightly bilaterally. Sick sinus syndrome (CMS/HCC) 06/01/2021 Assessment & Plan (11/05/2023 2:37 PM DINKEY LOCOMOTIVE ENGINEER): -chronic, stable -Continue seeing Dr. Washington cardiology. [...] daily. Assessment & Plan (08/29/2022 10:29 AM DINKEY LOCOMOTIVE ENGINEER): HPI: Condition is stable A&P: Discussed/ordered labs, [...] daily Assessment & Plan (09/01/2021 9:52 AM DINKEY LOCOMOTIVE ENGINEER): HPI: Condition is stable A&P: Discussed/ordered labs, [...] file Assessment & Plan (08/30/2023 3:59 PM DINKEY LOCOMOTIVE ENGINEER): Chronic problem Pacemaker present to left upper [...] daily. Assessment & Plan (08/29/2022 10:29 AM DINKEY LOCOMOTIVE ENGINEER): Biotronik pacemaker placed February 2021 HPI: Condition is stable A&P: Discussed/ordered labs, encouraged healthy, low carbohydrate lifestyle and at least 150min/week of exercise, continue pacemaker checks and seeing Dr. Padmini waterman. Continue on amlodipine [...] exercise, continue Pacemaker checks and seeing Dr. Padmini waterman. continue on amlodipine 10 mg daily, aspirin 81 mg daily, lisinopril 20 mg twice daily, fish oil 2 capsules daily, pravastatin 10 mg daily Assessment & Plan (09/01/2021 9:52 AM DINKEY LOCOMOTIVE ENGINEER): This only started last November with low heart rate, had pacemaker placed February 2021. Dyspnea on exertion 02/09/2021 Assessment & Plan (11/05/2023 2:35 PM DINKEY LOCOMOTIVE ENGINEER): -chronic, stable -Continue seeing Dr. Padmini waterman. -Continue on amiodarone 200 mg daily, losartan [...] daily. Assessment & Plan (08/29/2022 10:29 AM DINKEY LOCOMOTIVE ENGINEER): HPI: Condition is stable A&P: Discussed/ordered labs, [...] daily Assessment & Plan (09/01/2021 9:52 AM DINKEY LOCOMOTIVE ENGINEER): HPI: Condition is stable A&P: Discussed/ordered labs, encouraged healthy, low carbohydrate lifestyle and at least 150min/week of exercise, continue with pacemaker checks and seeing Dr. Washington (cardiology). Pt dues for pacemaker check and echocardiogram in November 2021. This only started last November with low heart rate, had pacemaker placed February 2021. Recurrent UTI 01/31/2021 Assessment & Plan (11/05/2023 2:36 PM DINKEY LOCOMOTIVE ENGINEER): -chronic, stable -Discussed/ordered labs -patient reports she is no longer seeing Urology. Offered new referral, but patient declines at this time Assessment & Plan (03/02/2023 7:18 AM CDT): HPI: Condition is stable A&P: Discussed/ordered labs, encouraged healthy, low carbohydrate lifestyle and at least 150min/week of exercise, continue seeing Aneta Campos NP urology as needed. Assessment & Plan (08/30/2022 10:40 AM DINKEY LOCOMOTIVE ENGINEER): HPI: Condition is stable A&P: Discussed/ordered labs, [...] surgery. Assessment & Plan (09/01/2021 10:11 AM DINKEY LOCOMOTIVE ENGINEER): HPI: Condition is not at/near goal A&P: Discussed/ordered labs, encouraged healthy, low carbohydrate lifestyle and at least 150min/week of exercise, pt saw specialist and is not a candidate for surgery. Pt is established with deb Eaton. 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 Padmini waterman. -Continue on amiodarone 200 mg daily, losartan [...] daily. Assessment & Plan (08/29/2022 10:25 AM DINKEY LOCOMOTIVE ENGINEER): HPI: Condition is stable A&P: Discussed/ordered labs, encouraged healthy, low carbohydrate lifestyle and at least 150min/week of exercise, continue pacemaker checks and seeing Dr. Padmini waterman. Continue on amlodipine [...] daily Assessment & Plan (09/01/2021 10:08 AM DINKEY LOCOMOTIVE ENGINEER): HPI: Condition is stable A&P: Discussed/ordered labs, [...] daily. Assessment & Plan (11/05/2023 2:35 PM DINKEY LOCOMOTIVE ENGINEER): -chronic, stable - Discussed/ordered labs - continue on fish oil 2000 mg daily and pravastatin 10 mg daily. Assessment & Plan (08/30/2023 4:07 PM DINKEY LOCOMOTIVE ENGINEER): Chronic problem-improving HDL 44 Trigs 198 Continue [...] daily. Assessment & Plan (08/30/2022 10:42 AM DINKEY LOCOMOTIVE ENGINEER): HPI: Condition is stable A&P: Discussed/ordered labs, [...] exercise Assessment & Plan (09/01/2021 10:03 AM DINKEY LOCOMOTIVE ENGINEER): HPI: Condition is improving, but not at goal A&P: Discussed/ordered labs, encouraged healthy, low carbohydrate lifestyle and at least 150min/week of exercise, continue on fish oil 2000 mg daily, pravastatin 10mg daily, increase exercise Glaucoma suspect of both eyes 10/29/2017 Fatty liver 11/16/2015 Assessment & Plan (11/05/2023 2:35 PM DINKEY LOCOMOTIVE ENGINEER): -chronic, stable -Discussed/ordered labs -keep weight under tight control. Assessment & Plan (03/02/2023 7:17 AM CDT): HPI: Condition is stable A&P: Discussed/ordered labs, encouraged healthy, low carbohydrate lifestyle and at least 150min/week of exercise, keep weight under tight control. Assessment & Plan (08/29/2022 10:26 AM DINKEY LOCOMOTIVE ENGINEER): HPI: Condition is stable A&P: Discussed/ordered labs, encouraged healthy, low carbohydrate lifestyle and at least 150min/week of exercise, keep weight under tight control. Assessment & Plan (03/01/2022 7:01 AM CDT): HPI: Condition is stable A&P: Discussed/ordered labs, encouraged healthy, low carbohydrate lifestyle and at least 150min/week of exercise, Keep weight under tight control Assessment & Plan (09/01/2021 10:07 AM DINKEY LOCOMOTIVE ENGINEER): HPI: Condition is stable A&P: Discussed/ordered labs, encouraged healthy, low carbohydrate lifestyle and at least 150min/week of exercise, continue on low fat, low carb diet, keep weight under control Optic cupping 07/28/2015 Pseudophakia 07/20/2014 Cystocele with prolapse 10/31/2010 Assessment & Plan (11/05/2023 2:35 PM DINKEY LOCOMOTIVE ENGINEER): -chronic, stable -Discussed/ordered labs -patient reports she [...] surgery Assessment & Plan (08/30/2022 10:40 AM DINKEY LOCOMOTIVE ENGINEER): HPI: Condition is stable A&P: Discussed/ordered labs, [...] surgery. Assessment & Plan (09/01/2021 10:11 AM DINKEY LOCOMOTIVE ENGINEER): HPI: Condition is not at/near goal A&P: Discussed/ordered labs, encouraged healthy, low carbohydrate lifestyle and at least 150min/week of exercise, pt saw specialist and is not a candidate for surgery. Pt is established with deb Eaton. Please f/u with her as needed Primary [...] therapy Assessment & Plan (11/05/2023 2:34 PM DINKEY LOCOMOTIVE ENGINEER): -chronic, not at goal -Continue seeing Dr. Washington cardiology. -Continue on amiodarone 200 mg daily, losartan 50 mg 2 tablets daily, metoprolol XL 50 mg daily, pravastatin 10 mg daily, Xarelto 20 mg daily Assessment & Plan (08/30/2023 4:09 PM DINKEY LOCOMOTIVE ENGINEER): Chronic problem- stable with current regimen BP [...] water. Assessment & Plan (08/29/2022 10:27 AM DINKEY LOCOMOTIVE ENGINEER): HPI: Condition is stable A&P: Discussed/ordered labs, [...] diet Assessment & Plan (09/01/2021 10:19 AM DINKEY LOCOMOTIVE ENGINEER): HPI: Condition is stable A&P: Discussed/ordered labs, [...] daily Assessment & Plan (11/05/2023 2:35 PM DINKEY LOCOMOTIVE ENGINEER): -chronic, stable -Discussed/ordered labs - continue on levothyroxine 112 mcg daily Assessment & Plan (08/30/2023 4:06 PM DINKEY LOCOMOTIVE ENGINEER): Chronic problem-not at goal TSH 4.66 Continue [...] daily Assessment & Plan (08/29/2022 10:27 AM DINKEY LOCOMOTIVE ENGINEER): HPI: Condition is stable A&P: Discussed/ordered labs, [...] daily Assessment & Plan (09/01/2021 10:01 AM DINKEY LOCOMOTIVE ENGINEER): HPI: Condition is not at/near goal TSH [...] daily Assessment & Plan (08/30/2022 10:42 AM DINKEY LOCOMOTIVE ENGINEER): HPI: Condition is stable Reports it flares [...] Please start taking probiotic 20-50billion CFU daily terminal supervisor. This will help maintain the good bacteria that is in your gut. Assessment & Plan (09/01/2021 9:59 AM DINKEY LOCOMOTIVE ENGINEER): HPI: Condition is stable she used to [...] 12/17/19 Assessment & Plan (11/05/2023 2:39 PM DINKEY LOCOMOTIVE ENGINEER): -chronic, stable goal BMI <30 Healthy, high-protein, lower carbohydrate, lower fat lifestyle and exercise for 150min/week recommended Recommend tracking everything you put in your mouth on an jaylan like Comunitae Hand Measurements: A fist or cupped hand [...] in your mouth on an jaylan like Comunitae Hand Measurements: A fist or cupped hand [...] cup. Assessment & Plan (08/29/2022 10:30 AM DINKEY LOCOMOTIVE ENGINEER): HPI: Condition is stable goal BMI <30 A&P: Healthy, high-protein, lower carbohydrate, lower fat lifestyle and exercise for 150min/week recommended Recommend tracking everything you put in your mouth on an jaylan like Comunitae Hand Measurements: A fist or cupped hand [...] 05/05/2024 Assessment & Plan (11/05/2023 2:36 PM DINKEY LOCOMOTIVE ENGINEER): -chronic, stable -Discussed/ordered labs -encouraged healthy, low carbohydrate lifestyle and at least 150min/week of exercise. Assessment & Plan (08/30/2023 4:02 PM DINKEY LOCOMOTIVE ENGINEER): Chronic problem-improving at goal of A1C < [...] exercise. Assessment & Plan (08/29/2022 10:29 AM DINKEY LOCOMOTIVE ENGINEER): HPI: Condition is stable Patient had been [...] visit. Assessment & Plan (09/01/2021 10:10 AM DINKEY LOCOMOTIVE ENGINEER): HPI: Condition is at goal A1c today [...] fracture of greater trochanter of right femur ([facility]) 10/25/2017 12/0 05/2021 Encounters Date Type Department Care Team Description 10/24/2024 Nurse Triage [facility] [place] [address] [place] [address] Melanie Oconnor NP 08/11/2024 Telephone [facility] [address] [place] [address] Marco Jefferson MD 08/08/2024 Ancillary Procedure [facility] Outside Films from Last 3 Months Immunizations Name Administration Dates Next Due Influenza, Quadrivalent, Hig h Dose, Preservative Free, Intrr 06/12/2023,06/14/2022 Influenza, Unspecified 06/24/2021,2019(Deferred: Patient Refused),05/25/2020(Deferred: Patient Refused) Pneumococcal Conjugate PCV 13 11/17/2016, 016 Pneumococcal Polysaccharide PPV23 11/20/2017 Tdap 11/05/2023 ZOSTER LIVE 10/11/2012 Surgical History Surgery Date Site/Laterality Comments ROTATOR CUFF REPAIR rotator cuff surgery CHOLECYSTECTOMY Cholecystectomy HYSTERECTOMY Hysterectomy SKIN LESION EXCISION 11/02/2021 Left Excision skin lesion left ear CATARACT EXTRACTION SHOULDER SURGERY Left fx repair COLONOSCOPY 09/24/2020 - 09/23/2021 COLONOSCOPY 02/05/2024 Medical History Medical History Date Comments Irritable bowel syndrome Irritab le bowel disease Disorder of thyroid Thyroid dise ase Hypertension Hypertension Hx Other Medical Cataracts Urinary incontinence Closed nondisplaced fracture of greater trochanter of right femur (CMS/HCC) (HCC) 10/25/2017 Rash of body BMI 26.0-26.9,adult Hyponatremia After cataract of right eye not obscuring vision TERI (acute kidney injury) (HCC) Atrial fibrillation (CMS/HCC) (HCC) Family History Medical History Relation Name Comments Heart disease Father Zain Oscar Heart diseas e; brain hemorraghe Mother Arthritis Other Heart disease Sister Katie Solares Relation Name Status Comments Father Zain Oscar Mother Other Sister Katie Solares Social History Tobacco Use Types Packs/Day Years Used Date Smoking Tobacco: Never Passive Smoke Exposure: Never Smokeless Tobacco: Never Tobacco Cessation:Counseling Given: Not Answered Alcohol Use Standard Drinks/Week Comments No 0 (1 standard drink = 0.6 oz pur e alcohol) [employer] Utilities Answer Date Recorded In the past 12 months has DOZ, gas, oil, or water [employer] threatened to shut off services in your [...] 12/17/2023 How often do you attend chur or mandaeism services? More than 4 times per year 12/17/2023 Do you belong to any clubs o r organizations such as restorationist groups, unions, fraternal or athletic groups, or [...] place to sleep or slept in a mcc (including now)? No 12/17/2023 Personal Safety Answer [...] on file Legal Sex Female 6:07 PM DINKEY LOCOMOTIVE ENGINEER Gender Identity Female 10/16/2021 7:51 PM DINKEY LOCOMOTIVE ENGINEER Sexual Orientation Not on file Obstetrics History Para Term AB IAB SAB Ectopic Multiple Livin g Live Births 4 Date Outcome GA Total Labor Labor/2nd/3rd Weight Sex Type Anes PTL Shira A1 A5 Name Clin Last Filed Vital Signs Vital Sign Reading [...] 05/14/2024 1:25 PM CDT Plan of Treatment Health Maintenance Due Date Last Done Comments Dilated Eye Exam 1940 Hepatitis B Screening 1960 Zoster Vaccine (2 of 3) 12/06/2012 10/11/2012 Covid-19 Vaccine (2023-2 5 season) 2024 08/08/2023, 07/07/2022, 07/28/2021, Additional history exists Influenza Vaccine (#1) 2024 , 06/14/2022, 06/24/2021 Hemoglobin A1C 06/28/2024 12/28/2023, 0305/2024, 11/01/2023, Additional history exists Well Visit 65+ 11/05/2024 11/05/2023, 06/14/2022 Lipid Panel 12/27/2024 12/28/2023, 02/0 04/2024, 08/21/2023, Additional history exists eGFR 02/07/2025 02/08/2024, 040 01/2024, 12/11/2023, Additional history exists Albumin Creatinine Ratio, Urine 05/05/2025 Depression Screening 05/05/2025 05/05/2024, 12/17/2023, 11/05/2023, Additional history exists Fall Risk Assessment 05/05/2025 05/05/2024, 12/17/2023, 12/14/2023, Additional history exists Foot Exam 05/05/2025 05/05/2024 Osteoporosis Screening-Bone Density Scan 11/14/2025 11/14/2023, 09/26/2021 DTaP/Tdap/Td Vaccine (2 - Td or Tdap) 11/05/2033 11/05/2023 Pneumococcal vaccine 65+ Completed 018, 11/17/2016, 11/16/2015 Medical Devices Implanted Type Area Neck Pinner Device Identifier Shelf Expiration Date Model / Serial / Lot Pacemaker Pacemaker Left: Chest Procedures Procedure Name Priority Date/Time Associated Diagnosis Comments XR TRANSFER OF OUTSIDE FILMS Routine 08/08/2024 12:00 AM DINKEY LOCOMOTIVE ENGINEER ALBUMIN CREATININE RATIO, URINE Routine 05/05/2024 2:14 [...] Read Routine (OP Routine) 11/14/2023 1:28 PM DINKEY LOCOMOTIVE ENGINEER Other specified disorders of bone density and structure, multiple sites from Last 3 Months or Most Recently Relevant to Health Maintenance Results * XR Outside Reference (08/08/2024 12:00 AM DINKEY LOCOMOTIVE ENGINEER) Narrative [facility] - 08/11/2024 2:41 PM DINKEY LOCOMOTIVE ENGINEER This order has been auto-finalized and does not contain a result. us Provider Transcribed Order IMG XR PROCEDURES Fin al Result [facility] * (ABNORMAL) Albumin Creatinine Ratio, Urine (05/05/2024 2:14 PM CDT) Albumin Ur 15.9 mg/L Comment: Interpretive Data No reference range established. Current interpretive data was last revised 2019. Creatinine Ur 31.8 mg/dL [facility] Comment: Interpretive Data No reference range established. Current interpretive data was last revised 2019. Albumin Creatinine Ratio, Ur 50(H) 1 - 29 mg/g [facility] Urine 05/05/2024 2:14 PM CDT 05/05/2024 7:48 PM CDT Melanie Oconnor NP LAB URINE ORDERABLES Final R esult [facility] [address] [address] Department [place] [address] * (ABNORMAL) Comprehensive metabolic panel (02/08/2024 11:13 [...] LAB BLOOD ORDERABLES Final R esult [facility] [address] [facility] [place] [address] * (ABNORMAL) Hemoglobin A1c (12/28/2023 9:12 AM CDT) Hgb A1C 6.2(H) <5.7 % of total Hgb [facility] Comment: For someone without known diabetes, [...] change in test platforms from the Kaur Senior Reactor Operator to the Abhijeet brielle c503 may have shifted HbA1c results compared to historical results. Based on laboratory validation testing conducted at [place], the Abhijeet platform relative to the Kaur [...] CDT 12/28/2023 9:13 AM CDT Melanie Oconnor CHERYLE LAB BLOOD ORDERABLES Final R [facility]ult [facility] [address] [place] [address] * (ABNORMAL) Lipid panel (12/28/2023 9:12 AM CDT) Cholesterol 154 <200 mg/dL [facility] HDL 40(L) > OR = [...] factors. LDL-C is now calculated using the Dick-Niki calculation, which is a validated novel method providing better accuracy than the Friedewald equation in the estimation of LDL-C. Dick SS et al. DURGA. 2013;310(19): 9343-1945 (http://education.Graitec/faq/EVU203) Chol/HDL ratio 3.9 <5.0 (calc) [facility] Non-HDL, (LDL+VLDL) 114 <130 mg/dL (calc) [facility] Comment: For patients with diabetes plus 1 major ASCVD risk factor, treating to a non-HDL-C goal of <100 mg/dL (LDL-C of <70 mg/dL) is considered a therapeutic option. Blood 12/28/2023 9:12 AM CDT 12/28/2023 9:13 AM CDT us Melanie Oconnor NP LAB BLOOD ORDERABLES Final R esult [facility] [address] [id number] * Dexa Axial Skeleton Bone Density 1 or 2 Site (11/14/2023 1:28 PM DINKEY LOCOMOTIVE ENGINEER) Anatomical Region Laterality Modality Body N/A Other 11/14/2023 6:14 PM DINKEY LOCOMOTIVE ENGINEER Narrative 11/14/2023 6:15 PM DINKEY LOCOMOTIVE ENGINEER EXAM DESCRIPTION: DEXA AXIAL SKELETON BONE DENSITY 1 OR MORE SITES REASON FOR STUDY: 82 y/o ?? year old ??F ??with given history of: ??screening ?? Postmenopausal ? Neck Pinner/Model: Ikonisys SL (S/N [id number]) CLINICAL INFORMATION: Current height: ??62.3 ??inches ? [...] 6:15 PM - Electronically signed by ??Josh Dave M.D. MF: DOUGLAS D: ??11/14/2023 6:15 PM T: ??11/14/2023 6:15 PM Report ID: [id number] Reading Location: ??[id number] Procedure Note Josh Dave MD - 11/14/2023 EXAM DESCRIPTION: DEXA AXIAL SKELETON BONE DENSITY 1 OR MORE SITES REASON FOR STUDY: 82 y/o year old F with given history of: screening Postmenopausal Neck Pinner/Model: [employer] Discovery SL (S/N [id number]) CLINICAL INFORMATION: Current height: 62.3 inches Maximum [...] Josh Dave M.D. MF: DOUGLAS Report ID: [id number] Reading Location: [place] [address] Melanie Oconnor NP IM DXA PROCEDURES Final Res ult from Last 3 Months or Most Recently Relevant to Health Maintenance Insurance [employer] CHOICE MEDICARE PPO AETNA [facility] ADVANTRA Advance Directives For more information, please contact: [phone] * Full Code (Latest Code Status on File) Date Activated Date Inactivated Comments 02/05/2024 10:55 AM 02/05/2024 5:12 PM * Full Code Date Activated Date Inactivated Comments 02/05/2024 10:55 AM 02/05/2024 10:55 AM * Full Code Date Activated Date Inactivated Comments 12/11/2023 4:43 AM 12/14/2023 5:02 PM * Full Code Date Activated Date Inactivated Comments 06/05/2023 9:56 AM 06/07/2023 6:30 PM Care Teams Professor Of Kinesiology Relationship Specialty Start Date End Date Melanie Oconnor NP [address] [place] [address] [place] [address] PCP - General Family Medicine 08/30/22 Maynor Washington Jr., MD [address] [place] [address] Consulting Physician Cardiovascular Disease 09/01/21 Tito Steinberg MD [address] [place] [address] Referring Physician Ophthalmology 03/01/22 Vicky Cummins MD [address] [place] [address] Consulting Physician Gastroenterology 12/14/23 Liz Burns NP [address] [facility] [place] [address] Nurse Practitioner 05/05/24
--- OUTSIDE RECORDS SUMMARY | 2024-10-24 15:22 | XMS_ITS | Clinical Summary ---
Author Organization [facility] Facility Address [address] [address] Care Team Providers Care Bit Sander Name Role Phone Melanie Oconnor NP Primary Care Provider [phone] Allergies Active Allergy Reactions Criticality Noted Date Comments Gemfibrozil Rash Medium 10/20/2015 Medications amitriptyline (ELAVIL) 25 MG tablet 1 tablet DAILY (route: oral) 12/14/2023 Active amiodarone (PACERONE) 200 MG tablet Take 200 mg by mouth in the morning. 06/20/2023 Active levothyroxine (SYNTHROID, LEVOTHROID) 125 MCG tablet Take 125 mcg by mouth in the morning. 12/31/2023 Active losartan (COZAAR) 50 MG tablet Take 50 mg by mouth in the morning. Active metoprolol succinate XL (TOPROL XL) 25 MG 24 hr tablet Take by mouth at bed time 12/14/2023 Active ondansetron ODT (ZOFRAN-ODT) 4 MG dispersible tablet Take 4 mg by mouth 12/14/2023 Active pravastatin (PRAVACHOL) 10 MG tablet Take 10 mg by mouth in the morning. 11/14/2023 Active rivaroxaban (XARELTO) 20 MG tablet Take 20 mg by mouth in the morning. 12/19/2023 Active calcium carbonate (Calcium 600) 600 MG tablet 1 tablet DAILY (route: oral) 12/14/2023 Active Cholecalciferol 125 MCG (5000 UT) tablet 1 capsule DAILY (route: oral) 12/14/2023 Active [place]-3 Fatty Acids (Fish Oil) 1200 MG capsule delayed-release Take by mouth Active Vitamin E 6.75 MG/0.3ML solution Take 1 tablet by mouth Active Active Problems Problem Noted Date Diagnosed Date Acute kidney failure 09/24/2023 Stage 3b chronic kidney disease 09/24/2023 Hyperlipidemia 09/24/2023 Hypothyroidism 09/24/2023 Vitamin D deficiency 09/24/2023 Prediabetes 09/24/2023 Hypo-osmolality and hyponatremia 09/24/2023 Type 2 diabetes mellitus 06/20/2023 Atrial fibrillation 06/04/2023 Overview (04/10/2024): Last Assessment & Plan: Acute problem- this is a new problem recently diagnosed Following cardiology Continue amiodarone 200 mg daily, Metoprolol XL 50 mg daily Xarelto 20 mg daily Follow up with cardiology as scheduled Continue to monitor Primary hypertension 07/12/2009 Overview (04/10/2024): Last Assessment & Plan: BP Readings from Last 3 Encounters: 12/17/23 [...] be added back in -continue current therapy Resolved Problems Problem Noted Date Diagnosed Date Resolved Date Stage 3b chronic kidney disease 11/05/2023 04/10/2024 Overview (04/10/2024): Last Assessment & Plan: -chronic, slightly worsening -Discussed/ordered labs -continue working with Cardiology to control blood pressure -drink plenty of water and avoid NSAIDs -if numbers continue to worsen, we will refer to Nephrology Family History Medical History Relation Comments Heart disease Father Diabetes Sister Heart disease Sister Relation Status Comments Father Mother Sister Social History Tobacco Use Types Packs/Day Years Used Date Smoking Tobacco: Never Smokeless Tobacco: Never Tobacco Cessation:Counseling Given: Not Answered Alcohol Use Standard Drinks/Week Comments Never 0 (1 standard drink = 0.6 oz pur e alcohol) Comments Unknown Sex and Gender Information Value Date Recorded Sex Assigned at Not on file Legal Sex Female 1:29 PM EDT Gender Identity Not on file Sexual Orientation Not on file Last Filed Vital Signs Vital Sign Reading Time Taken Comments Blood Pressure 105/80 06/17/2024 2:15 PM CDT Pulse 87 06/17/2024 2:15 PM CDT Temperature 36.4 ??C (97.5 ??F) 06/17/2024 2:15 PM CD T Respiratory Rate 18 06/17/2024 2:15 PM CDT Oxygen Saturation 98% 06/17/2024 2:15 PM CDT Inhaled Oxygen Concentration - - Weight 68.5 kg (151 lb) 06/17/2024 2:15 PM CDT Height 162.6 cm (5' 4 ) 06/17/2024 2:15 PM CDT Body Mass Index 25.92 06/17/2024 2:15 PM CDT Plan of Treatment Upcoming Encounters Date Type Department Care Team (Late st Contact Info) Description 12/15/2024 1:30 PM CDT Office Visit [facility], [facility] [address] [facility] [address] [place] [address] Bc Morillo MD [address] [facility] [address] [place], [place] [id number] Health Maintenance Due Date Last Done Comments Hepatitis B Vaccine (1 of 3 - Risk 3-dose series) 2002 Diabetes: Ophthalmology Exam 03/04/2024 Diabetes: Pedal Pulse Checked 03/04/2024 Diabetes: Sensory Foot Exam 03/04/2024 Diabetes: Visual Foot Exam 03/04/2024 Diabetes: Hemoglobin A1C 03/28/2024 024, 12/28/2023, 12/11/2023, Additional history exists Influenza Vaccine (#1) 2024 06/24/2021 Pneumococcal Vaccine: 65+ Years Completed 11/20/2017, 11/17/2016, 11/16/2015 Procedures Procedure Name Priority Date/Time Associated Diagnosis Comments EXT RESULT ENTRY Routine 12/28/2023 from Last 3 Months or Most Recently Relevant to Health Maintenance Results * (ABNORMAL) EXT RESULT ENTRY (12/28/2023) WBC 6.6 3.3 - 10.0 10*3/ML Red Blood Cell Count 3.92 Hemoglobin 11.5(A) 12.0 - 16.0 Hematocrit 34.9(A) 36.0 - 46.0 Platelets 284 150 - 399 10*3/UL MCV 89.0 82.0 - 108.0 Sodium 137 137 - 147 Potassium 4.6 3.4 - 5.5 Chloride 99.0 99.0 - 108.0 Carbon Dioxide 26 mmol/L Glucose 118 60 - 200 BUN 10 4 - 21 mg/dL Creatinine 1.11(A) 0.50 - 1.10 mg/dL BUN/Creatinine Ratio 9 Calcium 8.9 8.7 - 10.7 mg/dL eGFR Non-Afr [place] 50(L) (TSH) Thyroid Stimulating Hormone 5.35 Free T4 1.7 ng/dL Vitamin D, 25-OH, Total 71 ng/mL Hemoglobin A1C 6.2(A) 4.0 - 6.0 Triglycerides 214(H) Cholesterol, Total 154 HDL 40(L) mg/dL LDL-Calculated 83 Chol/HDL Ratio (External Entry) 3.9 Non HDL Cholesterol 114 12/28/2023 us Historical Provider LAB BLOOD ORDERABLES Cony l Result from Last 3 Months or Most Recently Relevant to Health Maintenance Insurance [facility] MEDICARE Advance Directives Documents on File Type Date Recorded Patient Manager Of Broadcast Content Expl anation Advance Care Planning 04/16/2024 1:31 PM Care Teams Bit Sander Relationship Specialty Start Date End Date Melanie Oconnor NP 2 [facility] , [facility] [address] [place] [address] PCP - General 06/17/24
--- OUTSIDE RECORDS SUMMARY | 2024-10-24 15:23 | XMS_ITS | Encounter Summary ---
Author Organization [facility] Address [address] [place] [address] Phone Care Team Providers Care Electrician Deck Name Role Phone Bc Kellogg MD Primary Care Provider + Aneta Campos NP Unavailable [phone] Remedios Tracy NP Primary Care Provider Padmini Lauren MD, Maynor Curiel Unavailable [phone] Fidencio Walker MD Unavailable Tito Steinberg MD Unavailable [phone] Melanie Oconnor NP Primary Care Provider [phone] Gricelda Guzman MA Unavailable [phone] Leola Breen MA Unavailable [phone] Vicky Cummins MD Unavailable [phone] Beverly Freed RN Unavailable [phone] Liz Burns NP Unavailable Encounter Details Date Type Department Care Team (Late st Contact Info) Description 03/04/2021 Telephone [facility]rology [address] [place] [address] [address] [place] [id number] Remedios Yang CMA Social History Tobacco Use Types Packs/Day Years Used Date Smoking Tobacco: Never Smokeless Tobacco: Never Alcohol Use Standard Drinks/Week Comments No 0 (1 standard drink = 0.6 oz pur e alcohol) AUDIT-C Answer Date Recorded Q1: How often do you have a drink containing alc ohol? Never 01/31/2021 Average Number of Drinks Not on file 021 Frequency of Binge Drinking Not on file 01/22 Comments No Sex and Gender Information Value Date Recorded Sex Assigned at Not on file Legal Sex Female 6:07 PM DENTIST/OWNER Gender Identity Female 10/16/2021 7:51 PM DENTIST/OWNER Sexual Orientation Not on file documented as of this encounter Plan of Treatment Not on file documented as of this encounter Visit Diagnoses Not on filedocumented in this encounter Additional Health Concerns Infection Onset Date Last Indicated Resolved Time C. difficile suspected 12/11/2023 12/11/202312/10 4:11 AM CDT Diarrhea 12/13/2023 12/13/2023 12/27/2023 3:07 AM CDT documented as of this encounter Care Teams Electrician Deck Relationship Specialty Start Date End Date Bc Kelolgg MD [address] [facility] [place] [address] PCP - General 07/17/20 08/31/21 Remedios Tracy, CHERY[facility] [facility] [place] [address] PCP - General Family Medicine 09/01/21 08/29/22 Melanie Oconnor NP [address] [place] [address] [place] [address] PCP - General Family Medicine 08/30/22 Aneta Campos NP [address] [facility] [place] [address] Nurse Practitioner Urology 09/01/21 06/13/22 Maynor Washington Jr., MD [address] [place] [address] Consulting Physician Cardiovascular Disease 09/01/21 Fidencio Walker MD [address] [place] [id number] Referring Physician Gastroenterology 09/01/21 06/13/22 Tito Steinberg MD [address] [facility] [address] [place] [address] Referring Physician Ophthalmology 03/01/22 Gricelda Guzman MA [address] [place] [address] [address] [place] [address] ACO Care Culinary Worker 06/08/23 06/08/23 Leola Breen MA [address] [place] [address] [address] [place] [address] ACO Care Culinary Worker 09/26/23 09/26/23 Vicky Cummins MD [address] [place] [address] [address] [place] [address] Consulting Physician Gastroenterology 12/14/23 Beverly Freed RN [address] [place] [address] [address] [place] [address] Diesel Locomotive Firer/Fireman 12/17/23 01/14/24 Liz Burns NP [address] [place] [address] Nurse Practitioner 05/05/24 documented as of this encounter
--- OUTSIDE RECORDS SUMMARY | 2024-10-24 15:23 | XMS_ITS | Encounter Summary ---
Author Organization [facility] Address [address] [place] [address] Care Team Providers Care Oxidized Finish Plater Name Role Phone Bc Kellogg MD Primary Care Provider + Aneta Campos NP Unavailable [phone] Remedios Tracy NP Primary Care Provider Padmini Lauren MD, Maynor Curiel Unavailable [phone] Fidencio Walker MD Unavailable [phone] Tito Steinberg MD Unavailable [phone] Melanie Oconnor SWEATBAND PERFORATOR Primary Care Provider [phone] Gricelda Guzman MA Unavailable Leola Breen MA Unavailable [phone] Vicky Cummins MD Unavailable [phone] Beverly Freed RN Unavailable Liz Burns NP Unavailable Reason for Visit * Reason Onset Date Comments Scheduling Appointments 08/10/2021 Confirmi ng mammogram appt Encounter Details Date Type Department Care Team (Late st Contact Info) Description 08/10/2021 Telephone [facility] [address] [place] [address] Renee Salter RT Scheduling Appointments (Confirming mammogram appt) Social History Tobacco Use Types Packs/Day Years [...] on file Legal Sex Female 6:07 PM SPECIAL EDUCATION ADMINISTRATOR Gender Identity Female 10/16/2021 7:51 PM SPECIAL EDUCATION ADMINISTRATOR Sexual Orientation Not on file documented as of this encounter Plan of Treatment Not on file documented as of this encounter Visit Diagnoses Not on filedocumented in this encounter Additional Health Concerns Infection Onset Date Last Indicated Resolved Time C. difficile suspected 12/11/2023 12/11/202312/10 4:11 AM CDT Diarrhea 12/13/2023 12/13/2023 12/27/2023 3:07 AM CDT documented as of this encounter Care Teams Oxidized Finish Plater Relationship Specialty Start Date End Date Bc Kellogg MD [address] [place] [address] [place] [address] PCP - General 07/17/20 08/31/21 Remedios Tracy NP [address] [place] [address] [place] [address] PCP - General Family Medicine 09/01/21 08/29/22 Melanie Oconnor NP [address] [place] [address] [place] [address] PCP - General Family Medicine 08/30/22 Aneta Campos NP [facility] [address] Nurse Practitioner Urology 09/01/21 06/13/22 Maynor Washington Jr., MD [address] [place] [address] Consulting Physician Cardiovascular Disease 09/01/21 Fidencio Walker MD [address] [place] [address] Referring Physician Gastroenterology 09/01/21 06/13/22 Tito Steinberg MD [address] [facility] [address] [place] [address] Referring Physician Ophthalmology 03/01/22 Gricelda Guzman MA [address] [place] [address] [address] [place] [address] ACO Care Night Stocker 06/08/23 06/08/23 Leola Breen MA [address] [place] [address] [address] [place] [address] ACO Care Night Stocker 09/26/23 09/26/23 Vicky Cummins MD [address] [place] [address] [address] [place] [address] Consulting Physician Gastroenterology 12/14/23 Beverly Freed RN [address] [place] [address] [address] [place] [address] Expanded Function Dental Assistant 12/17/23 01/14/24 Liz Burns NP [address] [place] [address] Nurse Practitioner 05/05/24 documented as of this encounter
--- OUTSIDE RECORDS SUMMARY | 2024-10-24 15:23 | XMS_ITS | Encounter Summary ---
Author Organization [facility] Healthcare Address [address] [place] [address] Care Team Providers Care Wirer Passenger Car Name Role Phone Aneta Campos NP Unavailable [phone] Remedios Tracy NP Primary Care Provider Padmini Lauren MD, Maynor Curiel Unavailable [phone] Fidencoi Walker MD Unavailable [phone] Tito Steinberg MD Unavailable [phone] Melanie Oconnor CHILDREN'S SERVICE SUPERVISOR Primary Care Provider Gricelda Guzman MA Unavailable Leola Breen MA Unavailable [phone] Vicky Cummins MD Unavailable [phone] Beverly Freed RN Unavailable Liz Burns NP Unavailable Encounter Details Date Type Department Care Team (Late st Contact Info) Description 09/23/2021 Telephone [facility] [address] [place] [address] Anastasia Kline, RT Social History Tobacco Use Types Packs/Day Years [...] of Binge Drinking Not on file 01/22 PHQ-2 Answer Date Recorded PHQ-2 Total Score (If total score is 3 or more points, staff should administer the PHQ-9) 0 09/01/2021 Comments No Sex and Gender Information Value Date Recorded Sex Assigned at Not on file Legal Sex Female 6:07 PM INSOLE AND HEEL STIFFENER Gender Identity Female 10/16/2021 7:51 PM INSOLE AND HEEL STIFFENER Sexual Orientation Not on file documented as of this encounter Plan of Treatment Not on file documented as of this encounter Visit Diagnoses Not on filedocumented in this encounter Additional Health Concerns Infection Onset Date Last Indicated Resolved Time C. difficile suspected 12/11/2023 12/11/202312/10 4:11 AM CDT Diarrhea 12/13/2023 12/13/2023 12/27/2023 3:07 AM CDT documented as of this encounter Care Teams Wirer Passenger Car Relationship Specialty Start Date End Date Remedios Tracy NP PCP - General Family Medicine 09/01/21 08/29/22 Melanie Oconnor NP [address] [place] [address] [address] [place] [address] PCP - General Family Medicine 08/30/22 Aneta Campos NP Nurse Practitioner Urology 09/01/21 06/13/22 Maynor Washington Jr., MD [address] [place] [address] Consulting Physician Cardiovascular Disease 09/01/21 Fidencio Walker MD [address] [place] [address] Referring Physician Gastroenterology 09/01/21 06/13/22 Tito Steinberg MD [address] [place] [address] Referring Physician Ophthalmology 03/01/22 Gricelda Guzman MA [address] [facility] [address] [place] [address] ACO Care Regional Hr Manager 06/08/23 06/08/23 Leola Breen MA [address] [facility] [address] [place] [address] ACO Care Regional Hr Manager 09/26/23 09/26/23 Vicky Cummins MD [address] [facility] [address] [place] [address] Consulting Physician Gastroenterology 12/14/23 Beverly Freed, [place] [address] [facility] [address] [place] [address] Assurance Associate 12/17/23 01/14/24 Liz Burns NP [address] [place] [address] Nurse Practitioner 05/05/24 documented as of this encounter
--- OUTSIDE RECORDS SUMMARY | 2024-10-24 15:26 | XMS_ITS | CONTINUITY OF CARE DOCUMENT ---
Author Name karleverton karleverton Address Unknown Organization [facility] Address [address] [place] [address] Phone [phone] Care Team Providers Care Monogram Technician Name Role Phone Padmini HUTCHISON, Maynor Unavailable [phone] William Reed MD Unavailable [phone] Derek HUTCHISON William Unavailable [phone] PROBLEMS Condition Status Date Provider Notes Atrial Fibrillation active Maynor Washington MD Pre-procedural laboratory examination active 3 Sanket Csatellanos RN Shortness of breath (SOB) active Kody Hopkins son 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 Maynor Washington MD Hypothyroidism active Maynor Washington MD Hyperlipidemia active Maynor Washington MD Aortic stenosis-very mild(2.37cm2) active R zakia Washington MD ENCOUNTERS Date Type Provider Location Encounter Diag nosis 11/28 - 11/28 In-person encounter Office Visit Maynor Washington MD [facility] 06/20 - 06/20 In-person encounter Office Visit Maynor Washington MD [facility] Chest painDiabetes mellitus, type 2 11/29 - 11/29 In-person encounter Office Visit Maynor Washington MD [facility] 11/30 - 11/30 In-person encounter Office Visit Maynor Washington MD [facility] 06/01 - 06/06 In-person encounter Office Visit Maynor Washington MD [facility] Sick sinus syndrome 02/09 - 02/10 In-person encounter Office Visit Maynor Washington MD [facility] Dyspnea on exertion - In-person encounter Office Visit Maynor Washington MD [facility] 10/23 - 10/24 In-person encounter Office Visit Maynor Washington MD [facility] - In-person encounter Office Visit Maynor Washington MD [facility] Aortic stenosis-very mild(2.37cm2)HTN essentialHyperlipidemiaHypothyroidismHypertension VITAL SIGNS [...] blood pressure, diastolic 71 mm[Hg] [facility] [place] blood pressure, systolic 146 mm[Hg] Charles phanigloria [place] oxygen saturation, oximetry 100 % [facility] [place] pulse rate 68 /min [facility] n respiratory rate E&M 16 /min Dc [facility] weight E&M 163 [lb_av] [facility] n blood pressure, cuff size small [facility] [place] height E&M 64 [in_i] [facility] n Body Mass Index (Ratio) [...] Lu Guerrabel l height E&M 64 [in_i] Lu Campbel l Body Mass Index (Ratio) 28.15 kg/m2 Tian Washington MD blood pressure, cuff size regular Nima isty Curtis blood pressure, diastolic 70 mm[Hg] Kr isty Jero blood pressure, systolic 120 mm[Hg] Kri sty Jero respiratory rate E&M 18 /min Enma Jero pulse rate 55 /min Enma Jero oxygen saturation, oximetry 100 % Enma Jero weight E&M 164 [lb_av] Enma Jero height E&M 64 [in_i] Enma Curtis Body Mass Index (Ratio) 27.46 kg/m2 Tian Washington MD blood pressure, cuff size regular Nima isty Jero blood pressure, diastolic 70 mm[Hg] Kr isty Curtis blood pressure, systolic 120 mm[Hg] Kri sty Jero pulse rate 94 /min Enma Jero oxygen saturation, oximetry 100 % Enma blood pressure, resting Yes Ced velazquez respiratory rate E&M 19 /min Enma weight E&M 160 [lb_av] Enma height E&M 64 [in_i] Enma Body Mass Index (Ratio) 28.32 kg/m2 Tian Washington MD pulse rate 94 /min [facility], [facility] 82 mm[Hg] Jhony ittany Block blood pressure, systolic 160 mm[Hg] Janki james [facility] oxygen saturation, oximetry 99 % [facility] weight E&M 165 [lb_av] [facility] respiratory rate E&M 16 /min [facility] height E&M 64 [in_i] [facility] Body Mass Index (Ratio) 29.35 kg/m2 [...] Normal Absolute Neutrophil count 5824 cells/mcL [employer] [id number] Normal mean platelet volume 11.7 fL [employer] [...] EVENING MEAL - Rahel Del Rio omega 6-rfh-air-fish oil 1,000 mg (120 mg-180 mg) capsule [...] tablet once a day - Radhanisha Cervantesmiglia SERVICE COUNSELOR #90, 90 days supply, Filled 04/10/2018 LEVOTHYROXINE [...] MD drug use no Radhanisha Cervantesmig jay SERVICE COUNSELOR alcohol use no Radha Ventimig jay SERVICE COUNSELOR passive cigarette sm molly exposure no Anna [...] MD passive cigarette sm molly exposure no Rahle Cruznfeldinez smoking status Former smoker Rahel Cruz [...] Policy type / Coverage type [place] [employer] party ID [employer] MEDICARE GOLD ADVANTAGE [facility] Medicare [id number] ADVANCE DIRECTIVES Name Date DISCUSSED - NO DECISION MADE TREATMENT PLAN Date Name Performer [id number],S,T SH wnl on recent labs on replacement therapy H er updated medication list for this problem includes: Levothyroxine 112 Mcg Tablet (Levothyroxine) ..... Take 1 tablet [facility] [id number],N,H gb A1C was 7% in hospital. she is following with PCP T he following medications were removed from the medication list: Lisinopril 40 Mg Tablet (Lisinopril) ..... 1 tablet once a day Her updated medication list for this problem includes: Aspirin 81 Mg Tablet,delayed Release (dr/ec) (Aspirin) ..... 1 tablet by mouth once a day [facility] [id number],S,B P 147/89 today H as been well [...] 1 tablet by mouth once a day [place] [facility] [facility] [id number],S,S he had episode of afib/aflutter that took [...] by mouth once a day Radha Luz [facility] [id number],N,S he had chest pain that radiated to [...] 1 tablet by mouth once a day [facility] [id number],S,L ast LDL was 84 remains on statin therapy H er updated medication list for this problem includes: Pravastatin 10 Mg Tablet (Pravastatin) ..... Take 1 tablet by mouth once a day [place] [facility] [facility] [id number],S, Maynor hardy MD [id number],S, Maynor hardy MD [id number],S, Maynor hardy MD [id number],S, Maynor hardy MD [id number],B, Maynor hardy MD [id number],S, Maynor hardy MD [id number],B, Maynor hardy MD [id number],S, Maynor hardy MD [id number],S, Maynor hardy MD [id number],S,BP good at ho me Maynor Washington MD [id number],S, Maynor hardy MD [id number],B,S /P PPM with subsequent RV lead dislodgement and repositioning. Pacer check today shows good thresholds and normal function. Patient states she feels better than she has in years. Maynor Washington MD [id number],S, Maynor hardy MD [id number],S, Maynor hardy MD [id number],S, Maynor hardy MD [id number],S, Maynor hardy MD [id number],S, Maynor hardy MD Cardiology:Recheck ECHO in 1 [...] by mouth once a day Radha Escobar SERVICE COUNSELOR Cardiology:Hgb A1C w as 7% in hospital. she is following with PCP T he following medications were removed from the medication list: Lisinopril 40 Mg Tablet (Lisinopril) ..... 1 tablet once a day Her updated medication list for this problem includes: Aspirin 81 Mg Tablet,delayed Release (dr/ec) (Aspirin) ..... 1 tablet by mouth once a day [facility] Cardiology:BP 147/89 today H as been well [...] 1 tablet by mouth once a day [facility] Cardiology:She had e pisode of afib/aflutter [...] 1 tablet by mouth once a day [facility] Cardiology:She had c hest pain that [...] by mouth once a day Radhanisha Canomishel [facility] Cardiology:Last LDL was 84 remains on statin therapy H er updated medication list for this problem includes: Pravastatin 10 Mg Tablet (Pravastatin) ..... Take 1 tablet by mouth once a day [place] Lu[place] [facility] Cardiology Maynor Washington MD Cardiology Maynor Washington [...] check stress test. Maynor Washington MD Cardiology Manyor Washington MD Cardiology Maynor Washington MD Cardiology Maynor Washington MD Cardiology:Recheck ECHO in a dennisea r Maynor Washington MD Cardiology Maynor Washington MD Cardiology Maynor Washington MD Cardiology Maynor Washington MD Cardiology Maynor Washington MD Cardiology Maynor Washington MD Cardiology Maynor Washington MD Cardiology Maynor Washington MD Cardiology Maynor Washington MD Date Name Complete Echo Stress Regadenoson DLCO - 02801 FRC - 80387 FVC - 76832 Complete Echo MAGNESIUM BASIC METABOLIC PANE L [...]
--- OUTSIDE RECORDS SUMMARY | 2024-10-24 15:26 | XMS_ITS | Continuity of Care Document ---
Author Organization [facility] [facility] Address [address] [facility] [address] [place] [address] Phone Care Team Providers Care Slasher Name Role Phone Rajni HUTCHISON FACS, Samy [...] route every day 5 MG - Active losartan 25 mg tablet take 1 tablet by oral route every day 25 MG - Active amiodarone 200 mg tablet take 1 tablet by oral route every day 200 MG - Active pravastatin 20 mg tablet take 2 tablet by oral route every day 40 MG - Active Vitamin D3 2,000 unit capsule take 1 by oral route every day 1 - Active Tirosint 100 mcg capsule take 1 capsule by oral route every day 100 MCG - Active vitamin E 600 unit capsule take 1 by oral route every day - Active Calcium 500 With D 500 mg (1,250 mg)-400 unit tablet 1 tablet once a day by mouth - Active Amitriptyline 25 mg Tab take [...] Diagnoses Date Provider Providers Copied on Encounter [facility], [address] [place] [address] [address], [place], [place], [address], tel:[phone] SEC Winslow MICHELLE No Information 5 Rajni Pablo. [address] [place] [address] [facility], [address], [place], [place], [address], [place]. tel:[phone] [facility], [address] [place] [address] [address], [place], [place], [address], tel:[phone] SEC Luis ROSADO Professional No Information 5 Cecilia OD Karen. [address] [place] [address] [address], [address], [place], [place], [address], [place]. tel:[phone] Referring Provider: Samy Griffith, [address] [place] [address] [facility] [address], [place], [address] . tel:[phone] Office/outpa tient Visit, [facility], [address] [place] [address] [address], [place], [place], [address], tel:[phone] SEC [place] Professional dry eye follow up (chief complaint) Dry eye syndrome of bilateral lacrimal glandsInfesta tion by Demodex 5 Cecilia OD Karen. [address] [place] [address] [address], [address], [place], [place], [address], [place]. tel:[phone] Maynor Washington MD.Referri ng Provider: Samy Griffith, [address] [place] [address] [facility] [address], [place], [address] . tel:[phone] Office/outpa tient Visit, [facility], [address] [place] [address] [address], [place], [place], [address], [place] tel:[phone] SEC [place] Professional Complete Exam (chief complaint) Dry eye syndrome of bilateral lacrimal glandsPrimary open angle glaucoma (POAG) of right eye, mild stagePrimary open angle glaucoma (POAG) of left eye, moderate stagePseudoph penny of both eyesNeurotrop hic keratoconjunc tivitis of both eyes Dec-0 9-202 4 Cecilia OD Karen. [address] [place] [address] [employer] [address], [address], [place], [place], [address], [place]. tel:[phone] Maynor Washington MD.Referri ng Provider: Samy Griffith, [facility] [address] [employer], [place], [address] . tel:[phone] Office/outpa tient Visit, [facility], [address] [place], [place] [address] [address], [place], [place], [address], [place] tel:[phone] SEC Luis ASHLEE Professional 6 mo IOP check (chief complaint) Dry eye syndrome of bilateral lacrimal glandsPrimary open-angle glaucoma, bilateral, moderate stage Mar-0 5-202 4 Cecilia OD Karen. [address] [place], [place] [address] [address], [address], [place], [place], [address], [place]. tel:[phone] Maynor Washington MD.Referri ng Provider: Samy Griffith, [facility] [address] [address], [place], [address] . tel:[phone] Office/outpa tient Visit, [facility], [address] [place], [place] [address] [address], [place], [place], [address], [place] tel:[phone] SEC [place] ASHLEE Professional Laser procedure (chief complaint) Primary open-angle glaucoma, bilateral, moderate stage Sep-0 -202 3 Rajni Pablo. [facility] [address] [employer], [address], [place], [place], [address], [place]. tel:[phone] Maynor Washington MD.Referri ng Provider: Samy Griffith, [facility] [address], [place], [address] . tel:[phone] Office/outpa tient Visit, [facility], [address] [place] [place] [address] [address], [place], [place], [address], [place] tel:[phone] SEC [place] Professional Complete Exam (chief complaint) Drusen (degenerative ) of macula, bilateralDry eye syndrome of bilateral lacrimal glandsPrimary open-angle glaucoma, bilateral, moderate stage Apr-2 2- 3 Cecilia OD Karen. [address] [place], [place] [address] [address], [address], [place], [place], [address], . tel:[phone] Maynor Washington MD.Referri ng Provider: Karen Brooks OD K, [address] [place], [place] [address] [address], [place], [address] . tel:[phone] Office/outpa tient Visit, [facility], [address] [place], [place] [address] [address], [place], [place], [address], tel:[phone] T[place] Professional 6 month IOP check w/VF (chief complaint) Primary open-angle glaucoma, bilateral, moderate stageDry eye syndrome of bilateral lacrimal glands Fe-0 - 3 Carlos OD Dahlia. [address] [place], [place] [address], [address], [place], [place], [address], [place]. tel:[phone] Maynor Washington MD.Referri ng Provider: Tiot David, [address] [facility], [place], [address] . tel:[phone] Office/outpa tient Visit, [facility], [address] [place] [address] [address], [place], [place], [address], [place] tel:[phone] Tippr [place] Professional 1 month IOP check (chief complaint) Primary open-angle glaucoma, bilateral, mild stage Apr-1 0-202 2 Carlos OD Dahlia. [facility] [employer], [address], [place], [place], [address], [place]. tel:[phone] Maynor Washington MD.Referri ng Provider: Tito David, [address] [facility] [address], [place], [address] . tel:[phone] Office/outpa tient Visit, [facility], [address] [place] [address] [address], [place], [place], [address], [place] tel:[phone] SEC Luis ROSADO Professional 3 week IOP check (chief complaint) Primary open-angle glaucoma, bilateral, mild stage Julio C-0 2 Carlos OD Dahlia. [address] [place] [address] [facility], [address], [place], [place], [address], [place]. tel:[phone] Maynor Washington MD.Referri ng Provider: Tito David, [address], [place], [address] . tel:[phone] Office/outpa tient Visit, [facility], [address] [place] [address] [address], [place], [place], [address], [place] tel:[phone] SEC Luis ROSADO Professional 1 month IOP check after starting glaucoma gtt (chief complaint) Primary open-angle glaucoma, bilateral, mild stage Feb- 2 Carlos OD Dahlia. [address] [place] [address] [employer], [address], [place], [place], [address], [place]. tel:[phone] Maynor Washington MD.Referri ng Provider: Tito David, [address], [place], [address] . tel:[phone] Office/outpa tient Visit, [facility], [address] [place] [address] [address], [place], [place], [address], [place] tel:[phone] SEC Luis ROSADO Professional Complete Exam (chief complaint) Primary open-angle glaucoma, bilateral, mild stageDry eye syndrome of bilateral lacrimal glands 2 Idris Francis. [address], [address], [place], [place], [address], [place]. tel:[phone] Maynor Washington MD.Referri ng Provider: Tito David [address], [place], [address] . tel:[phone] [facility], [address], [place], [place], [address], [place] tel:[phone] SEC Luis ROSADO Professional 6 mo Complete exam (chief complaint) Glaucoma suspect of both eyesBilateral artificial lens implantDry eye syndrome of bilateral lacrimal glandsOther secondary cataract, right eye 1 Idris Francis. [address], [address], [place], [place], [address], [place]. tel:[phone] Maynor Washington MD.Referri ng Provider: Tito David, [address], [place], [address] . tel:[phone] [facility], [address] [place] [address] [address], [place], [place], [address], [place] tel:[phone] SEC Luis ROSADO Professional No Information 1 Idris Francis. [address], [address], [place], [place], [address], [place]. [phone] Specialist : [place], [address], [address]. tel:[phone] Office/outpa tient Visit, [facility], [address] [place] [address] [address], [place], [place], [address], [place] tel:[phone] SEC Luis ROSADO Professional 4 month IOP check (chief complaint) Glaucoma suspect of both eyes 0 Idris Francis. [address], [address], [place], [place], [address], [place]. tel:[phone] Referring Provider: Tito David, [address], [place], [address] . tel:[phone] Office/outpa tient Visit, [facility], [address], [place], [place], [address], [place] tel:[phone] SEC Luis ROSADO Professional glaucoma, pressure check (chief complaint) Glaucoma suspect of both eyes Mar-0 0 Luis E OD Ralph. [address] [facility], [address] [place] [address], [place], [address], [place]. tel:[phone] Referring Provider: Ralph Kimbrough [place] R, [address] [place] [address], [place], [address]. tel:[phone] Office/outpa tient Visit, [facility], [address], [place], [place], [address], [place] tel:[phone] SEC Luis ROSADO Professional 6 week IOP check (chief complaint) Glaucoma suspect of both eyesVitreous degeneration, bilateral 0 Luis E OD Ralph. [address] [place] [address], [place], [address], [place]. tel:[phone] Referring Provider: Ralph Kimbrough OD R, [address] [place] [address], [place], [address]. tel:[phone] [facility] HospitalImp[facility], [address], [place], [place], [address], [place] tel:[phone] SEC Luis ROSADO Professional Complete Exam (chief complaint) Glaucoma suspect of both eyesBilateral artificial lens implantRPE mottling of maculaVitreou s degeneration, bilateral Feb-0 5-202 0 Luis E OD Ralph. [address] [facility], [address] [place] [address], [place], [address], [place]. tel:[phone] Referring Provider: Ralph Kimbrough [place] R, [address] [place] [address], [place], [address]. tel:[phone] [facility], [address], [place], [place], [address], [place] tel:[phone] SEC Sue Raygoza No Information 0 Luis E OD Ralph. [address] [place] [address], [place], [address], [place]. tel:[phone] [facility], [address], [place], [place], [address], [place] tel:[phone] SEC [place] Professional Complete Exam (chief complaint) Bilateral artificial lens implantGlauco ma suspect of both eyesVitreous degeneration, bilateralRPE mottling of maculaOther secondary cataract, right eye Feb-2 [address] [facility] [place], [address], [place]. tel:[phone] Referring Provider: Tito David, [address] [facility] A, [place], [address] . tel:[phone] [facility], [address], [place], [place], [address], [place] tel:[phone] SEC [place] Professional No Information 2 [address] [facility] A, [place], [place], [address], [place]. tel:[phone] [facility], [address], [place], [place], [address], [place] tel:[phone] SEC [place] Professional Complete Exam (chief complaint) Glaucoma suspect of right eyeGlaucoma suspect of left eyeBilateral pseudophakiaA fter cataract of right eye not obscuring visionDrusen (degenerative ) of macula, bilateral b-0 8 Jannette Romero. [address] [facility], [place], [address], [place]. tel:[phone] Referring Provider: Trae Griffith, [address] [facility], [place], [address] . tel:[phone] [facility], [address], [place], [place], [address], [place] tel:[phone] SEC [place] Professional Complete Exam (chief complaint) No Information b-0 1-201 7 Yesica Larkin. [address], [address], [place], [address], . tel:[phone] Referring Provider: Trae Griffith, [address] [facility] [address], [place], [address] . tel:[phone] [facility], [address], [place], [place], [address], tel:[phone] SEC [place] Professional Yearly (chief complaint) No Information Nov-0 4-201 5 Wankazael Larkin. [address] [facility], [address], [place], [address], . tel:[phone] Referring Provider: Trae Griffith, [address] [facility] [place], [address] . tel:[phone] [facility], [address], [place], [place], [address], tel:[phone] SEC [place] Professional floaters (chief complaint) No Information Oct-2 7-201 4 Yesica Larkin. [address], [address], [place], [address], . tel:[phone] Referring Provider: Trae Griffith, [address] [place], [address] . tel:[phone] [facility], [address], [place], [place], [address], [place] [phone] SEC [place] Professional No Information Nov-3 0-201 2 Wanskylar Larkin. [address], [address] [place], [place], [address], . tel:[phone] [facility], [address], [place], [place], [address], [place] tel:[phone] SEC Luis ROSADO Professional No Information Nov-2 6-201 2 Wanskylar Larkin. [address] [facility], [address], [place], [address], . tel:[phone] Referring Provider: Trae Griffith, [address] [facility] [place], [address] . tel:[phone] [facility], [address], [place], [place], [address], tel:[phone] SEC Luis ROSADO Professional No Information Raghavendra-1 0-201 1 Wanskylar Larkin. [address] [facility], [facility] [place], [address], . tel:[phone] Referring Provider: Trae Griffith, [address] [facility] [place], [place], [address] [place] [address] . tel:[phone] [facility], [address], [place], [place], [address], [place] tel:[phone] SEC Luis ROSADO Professional No Information Nov-1 5-201 0 Yesica Larkin. [address] [facility], [facility] [place], [address], . tel:[phone] Referring Provider: Trae Griffith, [address] [facility] [place], [address] . tel:[phone] [facility], [address], [place], [place], [address], [place] tel:[phone] SEC Luis ROSADO Professional No Information Raghavendra-0 1-201 0 Wanskylar Larkin. [address] [facility], [facility] [place], [address], [place]. tel:[phone] [facility], [address], [place], [place], [address], [place] tel:[phone] SEC [facility] Professional No Information Nov-3 0-200 9 Yesica Larkin. [address] [facility], [address], [place], [place], [address], [place]. tel:[phone] [facility], [address], [place], [place], [address], [place] tel:[phone] SEC [facility] Professional No Information Nov-0 6-200 9 Yesica Larkin. [address] [facility], [address], [place], [place], [address], [place]. tel:[phone] [facility], [address], [place], [place], [address], [place] tel:[phone] SEC [facility] Professional No Information Oct-3 0-200 9 Lakhwinder Shanta. [address], [address], [place], [place], [facility], [place]. tel:[phone] [facility], [address], [place], [place], [address], [place] tel:[phone] [facility] No Information Oct-2 9-200 9 Krishnasamy Chilango. [facility] [address], [facility], . tel:[phone] Referring Provider: Trae Griffith, [address] [facility] [address], [place], [address] . tel:[phone] Office/outpa tient Visit, Est [facility], [address], [place], [place], [address], [place] tel:[phone] SEC [facility] Professional No Information Oct-0 1-200 9 Krishnasamy Chilango. [address], [facility], [place]. tel:[phone] Referring Provider: Trae Griffith, [address] [facility] [place], [address] . tel:[phone] [facility], [address] [place] [address] [address], [place], [place], [address], tel:[phone] SEC [place] ASHLEE Professional No Information 2 8-200 9 Yesica Larkin. [address] [facility], [facility] [place], [address], . tel:[phone] Referring Provider: Trae Griffith, [address] [place], [address] . tel:[phone] [facility], [address] [place] [address] [address], [place], [place], [address], tel:[phone] SEC [place] ASHLEE Professional No Information 0 4-200 8 Yesica Larkin. [address] [facility], [facility] [place], [address], . tel:[phone] Office/outpa tient Visit, [facility], [address] [place] [address] [address], [place], [place], [address], tel:[phone] SEC [place] ASHLEE Professional No Information 2 2-200 7 Yesica Larkin. [address] [facility], [facility] [place], [address], . tel:[phone] Family History Family Member Type Diagnosis Age At Onset Mother Problem (finding) Aneurysm Father Problem (finding) Heart Disease Sister Problem (finding) Heart Disease Mother Problem (finding) Arthritis Sister Problem (finding) Diabetes mellitus Payers Payer name Insurance type Covered libertarian ID Authoriza tion(s) No Information Social History [...] visit so she could see better at restorationism. Patient c/o OS seems blurry. Yearly The [...]
[2024-10-24 15:35] VITALS: BP 179/57; PULSE 78; RESP 14; TEMP 36.6; O2SAT 100
--- NOTE | 2024-10-24 15:47 | PC.NURSE ---
in br to obtain ua spec.
[2024-10-24 15:52] LABS: EDUAAPPEAR Cloudy; EDUABILI Negative (Negative); EDUABLOOD 1+ (Negative); EDUACOLOR1 Yellow; EDUAGLUCOSE Negative (Negative); EDUAKETONE Negative (Negative); EDUALEUKO 3+ (Negative); EDUANITRATE Negative (Negative); EDUAPH 6.5; EDUAPROTEIN Negative (Negative); EDUASPGRAVITY 1.015; EDUAUROBILI 0.2
--- NOTE | 2024-10-24 16:02 | ED.GENADULT ---
HPI - General Adult General Chief complaint: Urogenital-Female Stated complaint: Poss UTI History of Present Illness HPI narrative: Patient is an 83-year-old female, past medical history significant for UTI, presents to [facility] with 4-5 day history of dysuria, primarily as she initiates her urinary stream, she denies associated flank pain, nausea vomiting or fever. She states her symptoms seemed to improve day 1 after pushing fluids however they have progressed and are not resolving, prompting her visit. She has no history of known antibiotic resistant with prior UTIs. She denies any additional associated symptoms or modifying factors Related Data Home Medications ?Medication ?Instructions ?Recorded ?Confirmed ?Last Taken ?Type ascorbic acid (vitamin C) 100 mg 100 mg PO DAILY 03/13/22 10/24/24 Unknown History tablet cholecalciferol (vitamin D3) 10 10 mcg PO DAILY 03/13/22 10/24/24 Unknown History mcg (400 unit) tablet latanoprost 0.005 % eye drops See Rx Instructions .Route .COMPLEX 03/13/22 10/24/24 Unknown History levothyroxine 100 mcg tablet 100 tablet PO DAILY 03/13/22 10/24/24 Unknown History omega 6-izq-csj-fish oil 1,000 mg 1 cap PO DAILY 03/13/22 10/24/24 Unknown History (120 mg-180 mg) capsule pravastatin 10 mg tablet 10 tablet PO DAILY 03/13/22 10/24/24 Unknown History vitamin E 268 mg (400 unit) capsule 268 mg PO DAILY 01/05/23 10/24/24 Unknown History amiodarone PO 08/15/24 Unknown History losartan 25 mg tablet 25 mg PO BID 08/15/24 10/24/24 Unknown History metoprolol succinate PO 08/15/24 Unknown History rivaroxaban 20 mg tablet (Xarelto) 20 mg PO DAILY 08/15/24 10/24/24 Unknown History B-12 Compliance 10/24/24 Unknown History metoprolol succinate 25 mg mg PO 10/24/24 Unknown History tablet,extended release 24 hr vitamin A 10/24/24 Unknown History zinc 10/24/24 Unknown History Allergies Allergy/AdvReac Type Severity Reaction Status Date / Time guselkumab Allergy Severe Rash Verified 10/24/24 15:59 gemfibrozil Allergy Intermediate Hives / Verified 10/24/24 15:59 Red Face Review of Systems Genitourinary: Genitourinary: Reports as per HPI [facility] Past Medical History Medical History IBS (irritable bowel syndrome) Elevated cholesterol Hypothyroid Hypertension Pacemaker Surgical History Surgical History H/O shoulder surgery left related to fracture H/O: hysterectomy Hx of cholecystectomy Family History Family History (Updated 08/15/24 @ 11:20 by Isabel Sargent) Unknown Heart disease Social History Social History (Updated 08/15/24 @ 11:21 by Isabel Sargent) Smoking status: Never smoker Alcohol intake: never Alcohol use details: rare social Substance use: never Living arrangements: with family Occupation/Education: retired Gender identity (if verbalized by the patient): Female Exam Const: General: cooperative, healthy appearing and comfortable HENMT: Head: normal to inspection Face/Nose/Sinus: Normal external nose present and Normal nares present Face and sinus: normal facial exam and sinuses nontender Mouth: Yes Normal oral and palatal mucosa present Throat: posterior oropharynx normal, tonsils normal and uvula midline Eyes: General: appearance normal, both eyes and all related structures Conjunctivae: conjunctivae normal Sclera: sclerae normal Cornea: corneas normal Neck: Neck: normal visual inspection, full ROM, no lymphadenopathy, no meningeal signs, trachea midline and supple Thyroid: thyroid normal Resp: Effort & Inspection: normal respiratory effort Auscultation: clear to auscultation bilaterally Percussion: percussion normal Cardio: Jugular venous distension: no JVD Palpation: normal PMI Rate: regular rate Rhythm: regular rhythm Heart sounds: S1 normal heart sound present and S2 normal heart sound present Peripheral pulses: Peripheral pulses 2+ throughout : Other: patient has no abdominal tenderness, no CVA tenderness bilaterally Skin: General skin exam: normal color Lesions: no lesions Rashes: no rashes Trauma: no lacerations or abrasions Neuro: General: oriented to person, oriented to place, oriented to time, patient oriented x3, gait normal, tone normal, moves all extremities, Normal light touch and pain sensation, no meningeal signs, no focal motor deficits and CN's II-XI intact bilaterally Extrem: General: normal to inspection, full ROM and capillary refill normal Psych: Appearance: grossly normal Mental Status: mental status grossly normal Speech and movement: Normal speech and movement present Course Course Emergency Course: patient's urinalysis is concerning for UTI with 3+ leuks and trace blood present. Negative nitrites. Patient has no history of prior antibiotic resistance to her knowledge and prior urine cultures are reviewed without active growth. Will therefore send urine for culture and treat empirically with cefuroxime, follow-up with PCP stressed if symptoms not improving, ER if she develops fevers, flank pain or vomiting. Patient is agreeable with plan Level of Care: Express Care Visit ([id number]) Vital Signs Vital signs: Vital Signs Temperature 36.6 C 10/24/24 15:35 Pulse Rate 78 10/24/24 15:35 Respiratory Rate 14 10/24/24 15:35 Blood Pressure 179/57 H 10/24/24 15:35 Pulse Oximetry 100 10/24/24 15:35 Oxygen Delivery Room Air 10/24/24 15:35 Temperature 36.6 C 10/24/24 15:35 Pulse Rate 78 10/24/24 15:35 Respiratory Rate 14 10/24/24 15:35 Blood Pressure 179/57 H 10/24/24 15:35 Pulse Oximetry 100 10/24/24 15:35 Oxygen Delivery Room Air 10/24/24 15:35 Medical Decision Making [facility] Narrative Medical decision making narrative: will treat with cefuroxime, urine culture will reflux Differential Diagnosis Differential Diagnosis: acute cystitis, urethritis, pyelonephritis, renal colic Vital Signs Vital Signs: Vital Signs Temperature 36.6 C 10/24/24 15:35 Pulse Rate 78 10/24/24 15:35 Respiratory Rate 14 10/24/24 15:35 Blood Pressure 179/57 H 10/24/24 15:35 Pulse Oximetry 100 10/24/24 15:35 Oxygen Delivery Room Air 10/24/24 15:35 Temperature 36.6 C 10/24/24 15:35 Pulse Rate 78 10/24/24 15:35 Respiratory Rate 14 10/24/24 15:35 Blood Pressure 179/57 H 10/24/24 15:35 Pulse Oximetry 100 10/24/24 15:35 Oxygen Delivery Room Air 10/24/24 15:35 Lab Data Labs: Lab Results 10/24/24 Range/Units 15:49 POC Urine Color Yellow POC Urine Clarity Cloudy POC Urine pH 6.5 POC Ur Specif Wright 1.015 POC Urine Protein Negative (Negative) POC Ur Glucose (UA) Negative (Negative) POC Urine Ketones Negative (Negative) POC Urine Blood 1+ (Negative) POC Urine Nitrite Negative (Negative) POC Urine Bilirubin Negative (Negative) POC Urine Urobilinogen 0.2 POC U Leukocyte Esteras 3+ (Negative) Discharge Plan Discharge Clinical Impression: Acute bacterial simple cystitis Patient Disposition: Home, Self-Care Condition: Stable Instructions: Antibiotic Form, Urinary Tract Infection in Women (DC) Additional Instructions: START AND COMPLETE ORAL ANTIBIOTICS PRESCRIBED DRINK PLENTY FLUIDS, AVOID CAFFEINE AND ALCOHOL TREATING YOUR URINARY TRACT INFECTION. SEE YOUR PRIMARY DOCTOR IN 3 DAYS IF SYMPTOMS NOT RESOLVING. PROCEED TO THE ER IF YOU DEVELOPED FEVERS, PAIN IN YOUR FLANK OR YOU BEGIN TO VOMIT Patient Language: Lithuanian Prescriptions: New cefuroxime axetil 250 mg tablet 250 mg PO BID Qty: 14 0RF No Action latanoprost 0.005 % drops See Rx Instructions .ROUTE .COMPLEX Rx Instructions: as prescribed levothyroxine 100 mcg tablet 100 tablet PO DAILY pravastatin 10 mg tablet 10 tablet PO DAILY ascorbic acid (vitamin C) 100 mg Tablet 100 mg PO DAILY cholecalciferol (vitamin D3) 10 mcg (400 unit) Tablet 10 mcg PO DAILY omega 5-gfu-cfe-fish oil 1,000 mg (120 mg-180 mg) capsule 1 cap PO DAILY vitamin E 268 mg (400 unit) Capsule 268 mg PO DAILY metoprolol succinate 25 mg tablet extended release 24 hr PO zinc vitamin A B-12 Compliance losartan 25 mg tablet 25 mg PO BID metoprolol succinate PO amiodarone PO Xarelto 20 mg tablet 20 mg PO DAILY Rx Instructions: must administer with evening meal Follow-up/Referrals: Derek,William Roper MD [Primary Care Provider] - Time of Disposition: 16:12
== END 2024-10-24 16:15 | disposition home or self-care (01) ==
PROVIDERS: Emergency Provider Nurse Practitioner Family; PCP Family Medicine
DX: N30.00 Acute cystitis without hematuria (principal); B96.89 Other specified bacterial agents as the cause of diseases classified elsewhere; I10 Essential (primary) hypertension; E03.9 Hypothyroidism, unspecified; E78.00 Pure hypercholesterolemia, unspecified; Z95.0 Presence of cardiac pacemaker; Z79.01 Long term (current) use of anticoagulants
CPT/HCPCS: 81003; 87077; 87086; 87186; 99213; G0463

== ENCOUNTER 2025-04-03 11:07 | Emergency (ER) | payer MEDICARE, SELFPAY ==
--- NOTE | ~2025-04-03 | XR_ITS ---
EXAMINATION: XR shoulder LT min 2V DATE: 04/03/2025 12:00 INDICATION: Generalized proximal left humeral pain 2 weeks post fall TECHNIQUE: AP internally and externally rotated, AP oblique externally rotated and transscapular Y vi ews of the left shoulder were obtained. 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 Additional old healed fracture deformity at the left humeral head and neck and with secondary advanced osteoarthritis with remodeling and loss of bone stock of the majority of the humeral head. Moderate osteoarthritis left acromioclavicular joint . No acute fracture or new traumatic malalignment. Left pectoral dual-lead cardiac pacemaker with nata ds extending along the left subclavian vein and beyond the margins of the field of imaging. Visualize d portions of the left lung are clear. 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 No acu te osseous abnormality. Reviewed, dictated and finalized at location A. 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 No acute osseous abnormality.
[2025-04-03 11:10] VITALS: BP 180/79; PULSE 77; RESP 24; TEMP 36.4; O2SAT 100
--- OUTSIDE RECORDS SUMMARY | 2025-04-03 11:11 | XMS_ITS | Clinical Summary ---
Author Organization [facility] [employer] Address [address] [place] [address] Care Team Providers Care Plate Former Name Role Phone Preeti Campa MD Primary Care Provider [phone] Phyllis Campa MD Unavailable Unavailable Source Comments [facility] [employer],non-owned Affiliates and Associated Physician Practices is amultiple site organization consisting of ambulatory clinics and hospital sitesin [place], [place] and [place]. This disclosure is being madepursuant to the Care Everywhere program and may not contain all information available regarding this patient. Last updated 18.[facility] [employer] Allergies Active Allergy Reactions Criticality Noted Date Comments Gemfibrozil Rash Low 10/20/2015 Medications * Be aware that medications may not be up to date on this document. Alwaysverify current medications with the patient. levothyroxine (SYNTHROID) 75 MCG tablet Take 75 [...] once daily Active Vitamin E 400 UNITS Active [place]-3 Fatty Acids (FISH OIL DELAYED RELEASE) 1000 MG capsule Take 2 capsules by mouth daily with food Active fluticasone propionate (FLONASE) 50 MCG/ACT nasal spray [place] 1 spray into each nostril 2 times daily 1 bottles 9 Active NIACIN, ANTIHYPERLIPIDE BETHANY, PO Active Family History Medical History Relation Name Comments Heart Failure Father Heart Failure Mother Relation Name Status Comments Father Mother Social History Tobacco Use Types Packs/Day Years Used Date Smoking Tobacco: Never Smokeless Tobacco: Never Tobacco Cessation:Counseling Given: Yes Comments No Sex and Gender Information Value Date Recorded Sex Assigned at Not on file 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 Gender Identity Not on file Sexual Orientation Not on file Last Filed Vital Signs Vital Sign Reading Time Taken Comments Blood Pressure 118/68 12/02/2018 9:01 AM CDT Pulse 94 12/02/2018 9:01 AM CDT Temperature 36.4 C (97.6 F) 12/02/2018 9:01 AM CDT Respiratory Rate 16 12/02/2018 9:01 AM CDT Oxygen Saturation 96% 12/02/2018 9:01 AM CDT Inhaled Oxygen Concentration - - Weight 76.2 kg (168 lb) 12/02/2018 9:01 AM CDT Height 162.6 cm (5' 4) 12/02/2018 9:01 AM CDT Body Mass Index 28.84 12/02/2018 9:01 AM CDT Plan of Treatment Health Maintenance Due Date Last Done Comments BONE DENSITY TESTING 1940 DTAP/TDAP/TD VACCINES (1 - Tdap) 1961 PNEUMOCOCCAL VACCINE 50+ (1 of 1 - PCV) 1992 ZOSTER VACCINE (1 of 2) 1992 Respiratory Syncytial Virus (RSV) Vaccine Pt: or over 60 yrs (1 - 1-dose 75+ series) 2017 COVID-19 VACCINE ( - 2023-2 5 season) 2024 DEPRESSION SCREENING 09/24/2024 INFLUENZA VACCINE (Season Ended) 2025 HEPATITIS B VACCINE Aged Out No longe r eligible based on patient's age to complete this topic HIB VACCINE Aged Out No longer eligi ble based on patient's age to complete this topic HPV VACCINE Aged Out No longer eligi ble based on patient's age to complete this topic MENINGOCOCCAL (Group B) VACC INE SHARED DECISION-MAKING Aged Out No longer eligibl e based on patient's age to complete this topic MENINGOCOCCAL GROUPS A/C/Y/W VACCINE Aged Out No longer eligible b ased on patient's age to complete this topic Insurance MEDICARE [facility] * Guarantor: SANDRA DIAZ Account Type Relation to Patient Date of Phone Billing Address Personal/Family 1940 [id number] [place] [address] Care Teams Plate Former Relationship Specialty [place] [id number] [facility] [address] [place] [id number] PCP - General Internal Medicine 09/21/17 [place] [address] [facility] [address] [place] [id number] Family Medicine 09/21/17
--- OUTSIDE RECORDS SUMMARY | 2025-04-03 11:11 | XMS_ITS | Clinical Summary ---
Author Organization [facility] Address [address] [address] Care Team Providers Care Real Estate Professional Name Role Phone Melanie Oconnor NP Primary Care Provider [phone] Allergies Active Allergy Reactions Criticality Noted Date Comments Gemfibrozil Rash Medium 10/20/2015 Medications amitriptyline (ELAVIL) 25 MG tablet 50 mg 12/14/2023 Active amiodarone (PACERONE) 200 MG tablet Take 200 mg by mouth in the morning. 06/20/2023 Active levothyroxine (SYNTHROID, LEVOTHROID) 125 MCG tablet Take 125 mcg by mouth in the morning. 12/31/2023 Active losartan (COZAAR) 50 MG tablet Take 50 mg by mouth in the morning and 50 mg in the evening. Active metoprolol succinate XL (TOPROL XL) 25 [...] 1 capsule DAILY (route: oral) 12/14/2023 Active [place]-3 Fatty Acids (Fish Oil) 1200 MG capsule [...] Sign Reading Time Taken Comments Blood Pressure 138/76 12/15/2024 1:42 PM CDT Pulse 73 12/15/2024 1:42 PM CDT Temperature 36.1 C (97 F) 12/15/2024 1:42 PM CDT Respiratory Rate 17 12/15/2024 1:42 PM CDT Oxygen Saturation 100% 12/15/2024 1:42 PM CDT Inhaled Oxygen Concentration - - Weight 69.9 kg (154 lb) 12/15/2024 1:42 PM CDT Height 162.6 cm (5' 4) 06/17/2024 2:15 PM CDT Body Mass Index 26.43 06/17/2024 2:15 PM CDT Plan of Treatment Upcoming Encounters Date Type Department Care Team (Late st Contact Info) Description 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 [facility], [facility] [address] [place] [address] Bc Morillo MD [address] [facility] [address] [place] [address] Health Maintenance Due Date Last Done Comments Hepatitis B Vaccine (1 of 3 - Risk 3-dose series) 2002 Diabetes: Ophthalmology Exam 03/04/2024 Diabetes: Pedal Pulse Checked 03/04/2024 Diabetes: Sensory Foot Exam 03/04/2024 Diabetes: Visual Foot Exam 03/04/2024 Diabetes: Hemoglobin A1C 01/31/2025 025, 12/28/2023, 12/28/2023, Additional history exists Influenza Vaccine (#1) 2025 11/10/2024, 2020 Pneumococcal Vaccine: 50+ Years Completed 11/20/2017, 11/17/2016, 11/16/2015 Procedures Procedure [...] 8.9 8.7 - 10.7 mg/dL eGFR Non-Afr Thai 50(L) (TSH) Thyroid Stimulating Hormone 5.35 Free T4 1.7 ng/dL Vitamin D, 25-OH, Total 71 ng/mL Hemoglobin A1C 6.2(A) 4.0 - 6.0 Triglycerides 214(H) Cholesterol, Total 154 HDL 40(L) mg/dL LDL-Calculated 83 Chol/HDL Ratio (External Entry) 3.9 Non HDL Cholesterol 114 12/28/2023 us Historical Provider LAB BLOOD ORDERABLES Cony l Result from Last 3 Months or Most Recently Relevant to Health Maintenance Insurance [facility] Medicare Member Subscriber Plan / Payer (Ef fective 2020-Present) Name:Rehana Soto Relation to Subscriber:Self Name:Rehana Soto Payer ID:[id number] (NAIC) Type:Not on file Address: [place] [id number] Advance Directives Documents on File Type Date Recorded Patient Passenger Brakeman Expl anation Advance Care Planning 04/16/2024 1:31 PM Care Teams Real Estate Professional Relationship Specialty Start Date End Date Melanie Oconnor NP [address] [facility] [address] [facility] [address] [place] [address] PCP - General 06/17/24
--- OUTSIDE RECORDS SUMMARY | 2025-04-03 11:11 | XMS_ITS | Referral Summary ---
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 Name Role Phone Padmini Lauren MD, Maynor Curiel Unavailable Melanie Oconnor INSIDE [employer] SALES Primary Care Provider Vicky Cummins MD Unavailable Liz Burns INSIDE [employer] SALES Unavailable Bc Morillo MD Unavailable Karen Brooks OD Unavailable Allergies Active Allergy Reactions Criticality Noted Date Comments Gemfibrozil Rash Medium 10/20/2015 Medications calcium carbonate (CALCIUM 600 ORAL) Take 1 Caplet by mouth Active omega-3 fatty acids 1,000 mg capsule Take 2 capsules by mouth daily 09/01/20 21 Active cholecalciferol (VITAMIN D-3) 5,000 unit capsule Take 1 capsule (5,000 Units total) by mouth daily Active timolol (TIMOPTIC) 0.5 % ophthalmic solution 1 drop 2 (two) times a day 04/28/20 22 Active triamcinolone (KENALOG) 0.1 % ointmentIndication s:Rash of body Twice daily as needed for itchy/dry skin for up to 2 weeks at a time. 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 90 tablet 3 04/04/20 24 Active clobetasoL (TEMOVATE) 0.05 % external solution 03/25/20 24 Active pravastatin (PRAVACHOL) 10 mg tablet TAKE 1 TABLET EVERY DAY 90 tablet 3 11/10/19 25 Active amitriptyline (ELAVIL) 50 mg tabletIndications: Mild episode of recurrent major depressive disorder Take 1 tablet (50 mg total) by mouth nightly 90 tablet 3 11/10/19 25 Active metoprolol XL (TOPROL-XL) 25 mg extended release tabletIndications: Primary hypertension Take 1 tablet (25 mg total) by mouth daily 90 tablet 3 03/16/20 25 026 Active metoprolol XL (TOPROL-XL) 25 mg extended release tablet Take 1 tablet (25 mg total) by mouth daily 30 tablet 11 12/14/19 24 025 Discontin ued(Reord er) Active Problems Problem Noted Date Diagnosed Date Mild episode of recurrent major depressive disor sheyla 11/12/2024 Assessment & Plan (12/26/2024 1:19 PM CDT): -chronic, improving -Continue on amitriptyline 50 mg nightly. Patient would like to remain on the current dosage -Follow up in 5 months or sooner as needed Patient reiterated no suicidal thoughts at this time; take medication as directed; contact 911 and go to the ER if becomes suicidal; discussed side effects of medication with patient; encouraged healthy diet and exericise; encouraged patient to see a counselor Assessment & Plan (11/12/2024 1:33 PM MULTIMEDIA EDITOR): -chronic, new -Discussed/ordered labs -Patient does not want to start on a new medication at this time, but she is agreeable to increasing the dose of amitriptyline -Increase to amitriptyline 50 mg nightly see if this helps with her mood and sleep -Follow up in 6 weeks or sooner as needed Patient reiterated no suicidal thoughts at this time; take medication as directed; contact 911 and go to the ER if becomes suicidal; discussed side effects of medication with patient; encouraged healthy diet and exericise; encouraged patient to see a counselor Psychophysiological insomnia 11/12/2024 Assessment & Plan (12/26/2024 1:20 PM CDT): -chronic, improving -Discussed/ordered labs -Continue on amitriptyline 50 mg nightly. Patient would like to remain on the current dosage -Follow up in 5 months or sooner as needed Assessment & Plan (11/12/2024 1:33 PM MULTIMEDIA EDITOR): -chronic, new -Discussed/ordered labs -Patient does not want to start on a new medication at this time, but she is agreeable to increasing the dose of amitriptyline -Increase to amitriptyline 50 mg nightly see if this helps with her mood and sleep -Follow up in 6 weeks or sooner as needed Psoriasis 05/05/2024 Assessment & Plan (05/05/2024 2:26 [...] of multiple sites 11/16/2023 Assessment & Plan (11/10/2024 2:30 PM MULTIMEDIA EDITOR): -chronic, stable -last bone density completed 11/14/2023 -continue on calcium and vitamin-D supplements daily Assessment & Plan (05/05/2024 2:26 PM CDT): -chronic, stable -last bone density completed 11/14/2023 -continue on calcium and vitamin-D supplements daily Chronic kidney disease, stage 3b 11/05/2023 Assessment & Plan (11/10/2024 2:28 PM MULTIMEDIA EDITOR): -chronic, stable -Discussed/ordered labs -continue working on blood pressure control -drink plenty of water and avoid NSAIDs -continue seeing Nephrology Assessment & Plan (05/05/2024 2:23 PM CDT): -chronic, stable -Discussed/ordered labs -continue working on blood pressure control -drink plenty of water and avoid NSAIDs -continue seeing Nephrology Assessment & Plan (11/05/2023 2:38 PM MULTIMEDIA EDITOR): -chronic, slightly worsening -Discussed/ordered labs -continue working with Cardiology to control blood pressure -drink plenty of water and avoid NSAIDs -if numbers continue to worsen, we will refer to Nephrology Diabetes mellitus, type 2 06/20/2023 Assessment & Plan (11/10/2024 2:29 PM MULTIMEDIA EDITOR): Condition is stable Personally reviewed A1c 5.6% Lab Results Component Value Date HGBA1C 5.6 11/03/2024 HGBA1C 6.2 (H) 12/28/2023 HGBA1C 6.2 (H) 12/11/2023 Maintenance Diabetic (Monofilament) foot exam - completed 05/05/2024 Annual dilated eye exams. Recommend completing Annual Urine microalbumin/creatinine ratio - completed 05/05/2024 Immunizations: Recommend Shingrix vaccinations BP management B/P today- 128/76 good Patient is currently is on an HARINI/ARB [...] Diabetes Complications History of macrovascular disease (CVA, [place], PVD) is Present. 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 Complications secondary to Diabetes [...] 250 for 3 days Paroxysmal atrial fibrillation 06/04/2023 Assessment & Plan (11/10/2024 2:30 PM MULTIMEDIA EDITOR): -chronic, stable -Discussed/ordered labs -continue on amiodarone 200 mg daily and Xarelto 20 mg daily -continue seeing Cardiology Assessment & Plan (05/05/2024 2:23 PM CDT): -chronic, stable -Discussed/ordered labs -continue on amiodarone 200 mg daily and Xarelto 20 mg daily -continue seeing Cardiology Assessment & Plan (08/30/2023 4:04 PM MULTIMEDIA EDITOR): Acute problem- this is a new problem [...] Vitamin D deficiency 03/01/2022 Assessment & Plan (11/10/2024 2:30 PM MULTIMEDIA EDITOR): -chronic, stable -Discussed/ordered labs -continue on vitamin D3 5000 units daily Assessment & Plan (05/05/2024 2:22 PM CDT): -chronic, stable -Discussed/ordered labs -continue on vitamin D3 5000 units daily Assessment & Plan (11/05/2023 2:37 PM MULTIMEDIA EDITOR): -chronic, stable -Discussed/ordered labs -continue on vitamin D3 5000 units daily Assessment & Plan (08/30/2023 3:59 PM MULTIMEDIA EDITOR): Chronic problem-stable Continue vitamin D3 5,000 international [...] daily Assessment & Plan (08/29/2022 10:30 AM MULTIMEDIA EDITOR): HPI: Condition is stable A&P: Discussed/ordered labs, [...] capsules 5000 units daily-this will be a mcfp medication Glaucoma of both eyes 03/01/2022 Assessment & Plan (03/02/2023 7:14 AM CDT): HPI: Condition is stable A&P: Continue seeing Dr. Steinberg at [facility] and using xalatain eyedrops nightly bilaterally Assessment & Plan (08/30/2022 10:50 AM MULTIMEDIA EDITOR): Condition is controlled. Patient is seeing Dr. Steinberg at [facility] Continue using xalatain eyedrops nightly bilaterally Assessment & Plan (03/01/2022 9:31 AM CDT): Sees Dr. Steinberg at [facility]. Using xalatain eye drops nightly bilaterally. Sick sinus syndrome 06/01/2021 Assessment & Plan (11/12/2024 1:28 PM MULTIMEDIA EDITOR): -chronic, stable -Continue seeing Dr. Washington cardiology. -Continue on amiodarone 200 mg daily, losartan 50 mg daily, metoprolol XL 25 mg daily, pravastatin 10 mg daily, Xarelto 20 mg daily, and furosemide 20 mg daily -recommend healthy, low-salt diet Assessment & Plan (11/05/2023 2:37 PM MULTIMEDIA EDITOR): -chronic, stable -Continue seeing Dr. Washington cardiology. [...] daily. Assessment & Plan (08/29/2022 10:29 AM MULTIMEDIA EDITOR): HPI: Condition is stable A&P: Discussed/ordered labs, [...] daily Assessment & Plan (09/01/2021 9:52 AM MULTIMEDIA EDITOR): HPI: Condition is stable A&P: Discussed/ordered labs, [...] file Assessment & Plan (08/30/2023 3:59 PM MULTIMEDIA EDITOR): Chronic problem Pacemaker present to left upper [...] daily. Assessment & Plan (08/29/2022 10:29 AM MULTIMEDIA EDITOR): Biotronik pacemaker placed February 2021 HPI: Condition [...] daily Assessment & Plan (09/01/2021 9:52 AM MULTIMEDIA EDITOR): This only started last November with low heart rate, had pacemaker placed February 2021. Dyspnea on exertion 02/09/2021 Assessment & Plan (11/05/2023 2:35 PM MULTIMEDIA EDITOR): -chronic, stable -Continue seeing Dr. Padmini waterman. -Continue on amiodarone 200 mg daily, losartan 50 mg 2 tablets daily, metoprolol XL 50 mg daily, pravastatin 10 mg daily, Xarelto 20 mg daily Assessment & Plan (03/02/2023 7:15 AM CDT): HPI: Condition is stable A&P: Continue seeing Dr. Ramadan cardiology. Continue on amlodipine 10 mg daily, aspirin 81 mg daily, lisinopril 20 mg twice daily, fish oil 2 capsules daily, and pravastatin 10 mg daily. Assessment & Plan (08/29/2022 10:29 AM MULTIMEDIA EDITOR): HPI: Condition is stable A&P: Discussed/ordered labs, [...] daily Assessment & Plan (09/01/2021 9:52 AM MULTIMEDIA EDITOR): HPI: Condition is stable A&P: Discussed/ordered labs, encouraged healthy, low carbohydrate lifestyle and at least 150min/week of exercise, continue with pacemaker checks and seeing Dr. Washington (cardiology). Pt dues for pacemaker check and echocardiogram in November 2021. This only started last November with low heart rate, had pacemaker placed February 2021. Recurrent UTI 01/31/2021 Assessment & Plan (11/05/2023 2:36 PM MULTIMEDIA EDITOR): -chronic, stable -Discussed/ordered labs -patient reports she is no longer seeing Urology. Offered new referral, but patient declines at this time Assessment & Plan (03/02/2023 7:18 AM CDT): HPI: Condition is stable A&P: Discussed/ordered labs, encouraged healthy, low carbohydrate lifestyle and at least 150min/week of exercise, continue seeing Aneta Campos NP urology as needed. Assessment & Plan (08/30/2022 10:40 AM MULTIMEDIA EDITOR): HPI: Condition is stable A&P: Discussed/ordered labs, [...] surgery. Assessment & Plan (09/01/2021 10:11 AM MULTIMEDIA EDITOR): HPI: Condition is not at/near goal A&P: Discussed/ordered labs, encouraged healthy, low carbohydrate lifestyle and at least 150min/week of exercise, pt saw specialist and is not a candidate for surgery. Pt is established with deb Eaton. 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 Washington cardiology. -Continue on amiodarone 200 mg daily, losartan 50 mg 2 tablets daily, metoprolol XL 50 mg daily, pravastatin 10 mg daily, Xarelto 20 mg daily Assessment & Plan (11/05/2023 2:34 PM MULTIMEDIA EDITOR): -chronic, stable -Continue seeing Dr. Washington cardiology. [...] daily. Assessment & Plan (08/29/2022 10:25 AM MULTIMEDIA EDITOR): HPI: Condition is stable A&P: Discussed/ordered labs, [...] daily Assessment & Plan (09/01/2021 10:08 AM MULTIMEDIA EDITOR): HPI: Condition is stable A&P: Discussed/ordered labs, encouraged healthy, low carbohydrate lifestyle and at least 150min/week of exercise, continue with pacemaker checks and seeing Dr. Washington (cardiology). Pt dues for pacemaker check and echocardiogram in November 2021. This only started last November with low heart rate, had pacemaker placed February 2021. Hyperlipidemia 07/10/2018 Assessment & Plan (11/10/2024 2:29 PM MULTIMEDIA EDITOR): -chronic, stable - Discussed/ordered labs - continue on fish oil 2000 mg daily and pravastatin 10 mg daily. Assessment & Plan (05/05/2024 2:22 PM CDT): -chronic, stable - Discussed/ordered labs - continue on fish oil 2000 mg daily and pravastatin 10 mg daily. Assessment & Plan (11/05/2023 2:35 PM MULTIMEDIA EDITOR): -chronic, stable - Discussed/ordered labs - continue on fish oil 2000 mg daily and pravastatin 10 mg daily. Assessment & Plan (08/30/2023 4:07 PM MULTIMEDIA EDITOR): Chronic problem-improving HDL 44 Trigs 198 Continue [...] daily. Assessment & Plan (08/30/2022 10:42 AM MULTIMEDIA EDITOR): HPI: Condition is stable A&P: Discussed/ordered labs, [...] exercise Assessment & Plan (09/01/2021 10:03 AM MULTIMEDIA EDITOR): HPI: Condition is improving, but not at goal A&P: Discussed/ordered labs, encouraged healthy, low carbohydrate lifestyle and at least 150min/week of exercise, continue on fish oil 2000 mg daily, pravastatin 10mg daily, increase exercise Glaucoma suspect of both eyes 10/29/2017 Fatty liver 11/16/2015 Assessment & Plan (11/10/2024 2:29 PM MULTIMEDIA EDITOR): -chronic, stable -Discussed/ordered labs -keep weight under tight control. Assessment & Plan (11/05/2023 2:35 PM MULTIMEDIA EDITOR): -chronic, stable -Discussed/ordered labs -keep weight under tight control. Assessment & Plan (03/02/2023 7:17 AM CDT): HPI: Condition is stable A&P: Discussed/ordered labs, encouraged healthy, low carbohydrate lifestyle and at least 150min/week of exercise, keep weight under tight control. Assessment & Plan (08/29/2022 10:26 AM MULTIMEDIA EDITOR): HPI: Condition is stable A&P: Discussed/ordered labs, encouraged healthy, low carbohydrate lifestyle and at least 150min/week of exercise, keep weight under tight control. Assessment & Plan (03/01/2022 7:01 AM CDT): HPI: Condition is stable A&P: Discussed/ordered labs, encouraged healthy, low carbohydrate lifestyle and at least 150min/week of exercise, Keep weight under tight control Assessment & Plan (09/01/2021 10:07 AM MULTIMEDIA EDITOR): HPI: Condition is stable A&P: Discussed/ordered labs, encouraged healthy, low carbohydrate lifestyle and at least 150min/week of exercise, continue on low fat, low carb diet, keep weight under control Optic cupping 07/28/2015 Pseudophakia 07/20/2014 Cystocele with prolapse 10/31/2010 Assessment & Plan (11/05/2023 2:35 PM MULTIMEDIA EDITOR): -chronic, stable -Discussed/ordered labs -patient reports she [...] surgery Assessment & Plan (08/30/2022 10:40 AM MULTIMEDIA EDITOR): HPI: Condition is stable A&P: Discussed/ordered labs, [...] surgery. Assessment & Plan (09/01/2021 10:11 AM MULTIMEDIA EDITOR): HPI: Condition is not at/near goal A&P: Discussed/ordered labs, encouraged healthy, low carbohydrate lifestyle and at least 150min/week of exercise, pt saw specialist and is not a candidate for surgery. Pt is established with Aneta Campos urology. Please f/u with her as needed Primary hypertension 07/12/2009 Assessment & Plan (11/10/2024 2:30 PM MULTIMEDIA EDITOR): -chronic, stable -Continue seeing Dr. Washington cardiology. -Continue on amiodarone 200 mg daily, losartan 50 mg daily, metoprolol XL 25 mg daily, pravastatin 10 mg daily, Xarelto 20 mg daily, and furosemide 20 mg daily -recommend healthy, low-salt diet Assessment & Plan (05/05/2024 2:23 PM CDT): [...] therapy Assessment & Plan (11/05/2023 2:34 PM MULTIMEDIA EDITOR): -chronic, not at goal -Continue seeing Dr. Washington cardiology. -Continue on amiodarone 200 mg daily, losartan 50 mg 2 tablets daily, metoprolol XL 50 mg daily, pravastatin 10 mg daily, Xarelto 20 mg daily Assessment & Plan (08/30/2023 4:09 PM MULTIMEDIA EDITOR): Chronic problem- stable with current regimen BP [...] water. Assessment & Plan (08/29/2022 10:27 AM MULTIMEDIA EDITOR): HPI: Condition is stable A&P: Discussed/ordered labs, [...] diet Assessment & Plan (09/01/2021 10:19 AM MULTIMEDIA EDITOR): HPI: Condition is stable A&P: Discussed/ordered labs, encouraged healthy, low carbohydrate lifestyle and at least 150min/week of exercise, since your bp readings are higher in the mornings, let us change your lisinopril to 20mg twice daily instead of 40mg in the am, push water, keep bp under control. Continue on aspirin daily, continue on amlodipine Low sodium diet Hypothyroidism 07/12/2009 Assessment & Plan (11/10/2024 2:30 PM MULTIMEDIA EDITOR): -chronic, stable -Discussed/ordered labs - continue on levothyroxine 125 mcg daily Assessment & Plan (05/05/2024 2:22 PM CDT): -chronic, stable -Discussed/ordered labs - continue on levothyroxine 125 mcg daily Assessment & Plan (11/05/2023 2:35 PM MULTIMEDIA EDITOR): -chronic, stable -Discussed/ordered labs - continue on levothyroxine 112 mcg daily Assessment & Plan (08/30/2023 4:06 PM MULTIMEDIA EDITOR): Chronic problem-not at goal TSH 4.66 Continue [...] daily Assessment & Plan (08/29/2022 10:27 AM MULTIMEDIA EDITOR): HPI: Condition is stable A&P: Discussed/ordered labs, [...] daily Assessment & Plan (09/01/2021 10:01 AM MULTIMEDIA EDITOR): HPI: Condition is not at/near goal TSH [...] daily Assessment & Plan (08/30/2022 10:42 AM MULTIMEDIA EDITOR): HPI: Condition is stable Reports it flares [...] Please start taking probiotic 20-50billion CFU daily mcfp. This will help maintain the good bacteria that is in your gut. Assessment & Plan (09/01/2021 9:59 AM MULTIMEDIA EDITOR): HPI: Condition is stable she used to [...] (152 lb) Body mass index is 27.1 kg/m . -Weight loss noted -Discussed recommendations for exercise [...] 12/17/19 Assessment & Plan (11/05/2023 2:39 PM MULTIMEDIA EDITOR): -chronic, stable goal BMI <30 Healthy, high-protein, lower carbohydrate, lower fat lifestyle and exercise for 150min/week recommended Recommend tracking everything you put in your mouth on an jaylan like [employer] Hand Measurements: A fist or cupped hand = 1 cup 1 cup = 1 -2 servings of fruit juice 1 oz. of cold cereal 2 oz. of cooked cereal, rice or pasta 8 oz. of milk or yogurt A thumb = 1 oz. of cheese Consuming low-fat cheese helps you meet the required servings from the milk, yogurt and cheese group. 1 oz. of low-fat cheese counts as 8 [...] equals 3 oz. for an adult and 1 -2 oz. for a child under 5. 1 [...] in your mouth on an jaylan like Calc[employer]is Hand Measurements: A fist or cupped hand = 1 cup 1 cup = 1 -2 servings of fruit juice 1 oz. of cold cereal 2 oz. of cooked cereal, rice or pasta 8 oz. of milk or yogurt A thumb = 1 oz. of cheese Consuming low-fat cheese helps you meet the required servings from the milk, yogurt and cheese group. 1 oz. of low-fat cheese counts as 8 [...] equals 3 oz. for an adult and 1 -2 oz. for a child under 5. 1 tennis ball or a fist= 1/2 cup of fruit and vegetables Healthy diets include a variety of colorful fruits and vegetables every day. The secret to serving size is in your hand. Snacking can add up. Because hand sizes vary, compare your fist size to an actual measuring cup. Assessment & Plan (08/29/2022 10:30 AM MULTIMEDIA EDITOR): HPI: Condition is stable goal BMI <30 A&P: Healthy, high-protein, lower carbohydrate, lower fat lifestyle and exercise for 150min/week recommended Recommend tracking everything you put in your mouth on an jaylan like Calcivis Hand Measurements: A fist or cupped hand = 1 cup 1 cup = 1 -2 servings of fruit juice 1 oz. of cold cereal 2 oz. of cooked cereal, rice or pasta 8 oz. of milk or yogurt A thumb = 1 oz. of cheese Consuming low-fat cheese helps you meet the required servings from the milk, yogurt and cheese group. 1 oz. of low-fat cheese counts as 8 [...] equals 3 oz. for an adult and 1 -2 oz. for a child under 5. 1 [...] 05/05/2024 Assessment & Plan (11/05/2023 2:36 PM MULTIMEDIA EDITOR): -chronic, stable -Discussed/ordered labs -encouraged healthy, low carbohydrate lifestyle and at least 150min/week of exercise. Assessment & Plan (08/30/2023 4:02 PM MULTIMEDIA EDITOR): Chronic problem-improving at goal of A1C < [...] exercise. Assessment & Plan (08/29/2022 10:29 AM MULTIMEDIA EDITOR): HPI: Condition is stable Patient had been [...] visit. Assessment & Plan (09/01/2021 10:10 AM MULTIMEDIA EDITOR): HPI: Condition is at goal A1c today [...] of greater trochanter of right femur (CMS/HCC) 10/25/2017 12/0 05/2021 Immunizations Immunization Administration Dates Next Due Influenza, Quadrivalent, Hig h Dose, Preservative Free, Intrr 06/12/2023,06/14/2022 Influenza, Trivalent, High D ose, Split, Preservative Free, Intramuscular 11/10/2024 Influenza, Unspecified 06/24/2021,2019(Deferred: Patient Refused),05/25/2020(Deferred: Patient Refused) Pneumococcal Conjugate PCV 13 11/17/2016, 016 Pneumococcal Polysaccharide PPV23 11/20/2017 Tdap 11/05/2023 ZOSTER LIVE 10/11/2012 Social History Tobacco Use Types Packs/Day Years Used Date Smoking Tobacco: Never Passive Smoke Exposure: Never Smokeless Tobacco: Never Tobacco Cessation:Counseling Given: Not Answered Alcohol Use Standard Drinks/Week Comments No 0 (1 standard drink = 0.6 oz pur e alcohol) [facility] Utilities Answer Date Recorded In the past 12 months has [employer], gas, oil, or water [employer] threatened to shut off services in your [...] often do you attend chur ch or mu-ism services? More than 4 times per year 12/17/2023 Do you belong to any clubs o r organizations such as methodist groups, unions, fraternal or athletic groups, or school groups? Yes 12/17/2023 How often do you attend meet ings of the clubs or organizations you belong to? More than 4 times per year 12/17/2023 Are you , , di vorced, , never , or living with a partner? 12/17/2023 AUDIT-C Answer Date Recorded Q1: How often do you have a drink containing alcohol? Never 12/26/2024 Q2: How many drinks containi ng alcohol do you have on a typical day when you are drinking? Patient does not drink Q3: How often do you have si x or more drinks on one occasion? Never 12/26/2024 Overall Financial Resource Strain (CARDIA) Answe r Date Recorded How hard is it for you to pa y for the very basics like food, housing, medical care, and heating? Not hard at all 12/17/2023 PHQ-2 Answer Date Recorded PHQ-2 Total Score (If total score is 3 or more points, staff should administer the PHQ-9) 0 12/26/2024 Hunger Vital Sign Answer Date Recorded Within [...] place to sleep or slept in a detention (including now)? No 12/17/2023 Personal Safety Answer [...] on file Legal Sex Female 6:07 PM MULTIMEDIA EDITOR Gender Identity Female 10/16/2021 7:51 PM MULTIMEDIA EDITOR Sexual Orientation Not on file Last Filed Vital Signs Vital Sign Reading Time Taken Comments Blood Pressure 132/79 12/26/2024 1:11 PM CDT Pulse 66 11/10/2024 2:10 PM MULTIMEDIA EDITOR Temperature 37.2 C (98.9 F) 12/26/2024 12:57 PM CDT Respiratory Rate 18 12/26/2024 12:57 PM CDT Oxygen Saturation 99% 11/10/2024 2:10 PM MULTIMEDIA EDITOR Inhaled Oxygen Concentration - - Weight 69.4 kg (153 lb) 12/26/2024 12:57 PM CDT Height 160 cm (5' 2.99) 12/26/2024 12:57 PM CDT Body Mass Index 27.11 12/26/2024 12:57 PM CDT Plan of Treatment Not on file Medical Devices Implanted Type Area Wool Tamper Device Identifier Shelf Expiration Date Model / Serial / Lot Pacemaker Pacemaker Left: Chest Procedures Procedure Name Priority Date/Time Associated Diagnosis Comments COMPREHENSIVE METABOLIC PANEL Routine 11/03/2024 1:45 PM MULTIMEDIA EDITOR Chronic kidney disease, stage 3b (HCC) Type 2 diabetes mellitus with stage 3a chronic kidney disease, without long-term current use of insulin (HCC) Fatigue, unspecified type HEMOGLOBIN A1C Routine 11/03/2024 1:45 PM MULTIMEDIA EDITOR Chronic kidney disease, stage 3b (HCC) Type 2 diabetes mellitus with stage 3a chronic kidney disease, without long-term current use of insulin (HCC) Fatigue, unspecified type LIPID PANEL Routine 11/03/2024 1:45 PM MULTIMEDIA EDITOR Mixed hyperlipidemia Chronic kidney disease, stage 3b (HCC) Type 2 diabetes mellitus with stage 3a chronic kidney disease, without long-term current use of insulin (HCC) Fatigue, unspecified type ALBUMIN CREATININE RATIO, URINE Routine 05/05/2024 2:14 PM CDT Type 2 diabetes mellitus with stage 3a chronic kidney disease, without long-term current use of insulin (HCC) DEXA AXIAL SKELETON BONE DENSITY 1 OR MORE SITES Schedule Routine, Read Routine (OP Routine) 11/14/2023 1:28 PM MULTIMEDIA EDITOR Other specified disorders of bone density and structure, multiple sites from Last 3 Months or Most Recently Relevant to Health Maintenance Results * Hemoglobin A1c (11/03/2024 1:45 PM MULTIMEDIA EDITOR) Hgb A1C 5.6 <5.7 % of total Hgb [facility] Comment: For the purpose of screening for the presence of diabetes: <5.7% Consistent with the absence of diabetes 5.7-6.4% Consistent with increased risk for diabetes (prediabetes) > or =6.5% Consistent with diabetes This assay result is consistent with a decreased risk of diabetes. Currently, no consensus exists regarding use of hemoglobin A1c for diagnosis of diabetes in children. According to [place] Diabetes Association (ADA) guidelines, hemoglobin A1c <7.0% represents optimal control in non- diabetic patients. Different metrics may apply to specific patient populations. Standards of Medical Care in Diabetes(ADA). Blood 11/03/2024 1:45 PM MULTIMEDIA EDITOR 11/03/2024 1:46 PM MULTIMEDIA EDITOR Narrative [facility] - 11/04/2024 8:46 AM MULTIMEDIA EDITOR FASTING:YES FASTING: YES Melanie Oconnor LAB BLOOD ORDERABLES Final R [facility]ult [facility] [address] [place] [address] * (ABNORMAL) Lipid panel (11/03/2024 1:45 PM MULTIMEDIA EDITOR) Cholesterol 178 <200 mg/dL [facility] HDL 49(L) > OR = 50 mg/dL [facility] Triglycerides 216(H) <150 mg/dL [facility] Comment: If a non-fasting specimen was collected, consider repeat triglyceride testing on a fasting specimen if clinically indicated. Jamie et al. J. of Clin. Lipidol. 2015;9:129-169. LDL 98 mg/dL (calc) [facility] Comment: Reference range: <100 Desirable range <100 mg/dL for primary prevention; <70 mg/dL for patients with CHD or diabetic patients with > or = 2 CHD risk factors. LDL-C is now calculated using the Jabier calculation, which is a validated novel method providing better accuracy than the Friedewald equation in the estimation of LDL-C. Dick FLYNN et al. DURGA. 2013;310(19): 4405-3384 (http://education.Panelfly/faq/BBJ736) Chol/HDL ratio 3.6 <5.0 (calc) [facility] Non-HDL, (LDL+VLDL) 129 <130 mg/dL (calc) [facility] Comment: For patients with diabetes plus 1 major ASCVD risk factor, treating to a non-HDL-C goal of <100 mg/dL (LDL-C of <70 mg/dL) is considered a therapeutic option. Blood 11/03/2024 1:45 PM MULTIMEDIA EDITOR 11/03/2024 1:46 PM MULTIMEDIA EDITOR Narrative [facility] - 11/04/2024 8:46 AM MULTIMEDIA EDITOR FASTING:YES FASTING: YES Melanie Oconnor NP LAB BLOOD ORDERABLES Final R esult [facility] [address] [place] [address] * (ABNORMAL) Comprehensive metabolic panel (11/03/2024 1:45 PM MULTIMEDIA EDITOR) [facility] Glucose 94 65 - 99 mg/dL [facility] Comment: Fasting reference interval BUN 14 7 - 25 mg/dL [facility] Creatinine 0.90 0.60 - 0.95 mg/dL [facility] eGFR 64 > OR = 60 mL/min/1.7 3m2 [facility] BUN/creat ratio SEE NOTE: 6 - 22 (calc) [facility] Comment: Not Reported: BUN and Creatinine are within reference range. Sodium 136 135 - 146 mmol/L [facility] Potassium, pl 3.9 3.5 - 5.3 mmol/L [facility] Chloride 98 98 - 110 mmol/L [facility] CO2 28 20 - 32 mmol/L [facility] Calcium 9.2 8.6 - 10.4 mg/dL [facility] Protein, sr 7.5 6.1 - 8.1 g/dL [facility] Albumin 4.2 3.6 - 5.1 g/dL [facility] GLOBULIN 3.3 1.9 - 3.7 g/dL (calc) [facility] Alb/glob ratio 1.3 1.0 - 2.5 (calc) [facility] Bilirubin, total 1.5(H) 0.2 - 1.2 mg/dL [facility] Alk phos 57 37 - 153 U/L [facility] AST 22 10 - 35 U/L [facility] ALT (SGPT) 16 6 - 29 U/L [facility] Blood 11/03/2024 1:45 PM MULTIMEDIA EDITOR 11/03/2024 1:46 PM MULTIMEDIA EDITOR Narrative [facility] - 11/04/2024 8:46 AM MULTIMEDIA EDITOR FASTING:YES FASTING: YES [facility] LAB BLOOD ORDERABLES Final R esult USHA [facility] [address] [place] [address] * (ABNORMAL) Albumin Creatinine Ratio, Urine (05/05/2024 2:14 PM CDT) Albumin Ur 15.9 mg/L Comment: Interpretive Data No reference range established. Current interpretive data was last revised 2019. Creatinine Ur 31.8 mg/dL [facility] Comment: Interpretive Data No reference range established. Current interpretive data was last revised 2019. Albumin Creatinine Ratio, Ur 50(H) 1 - 29 mg/g [facility] Urine 05/05/2024 2:14 PM CDT 05/05/2024 7:48 PM CDT Melanielawanda Oconnor NP LAB URINE ORDERABLES Final R esult [facility] [address] [facility] [place] [address] * Dexa Axial Skeleton Bone Density 1 or 2 Site (11/14/2023 1:28 PM MULTIMEDIA EDITOR) Anatomical Region Laterality Modality Body N/A Other 11/14/2023 6:14 PM MULTIMEDIA EDITOR Narrative 11/14/2023 6:15 PM MULTIMEDIA EDITOR EXAM DESCRIPTION: DEXA AXIAL SKELETON BONE DENSITY 1 OR MORE SITES REASON FOR STUDY: 82 y/o year old F with given history of: screening Postmenopausal Wool Tamper/Model: Boston Boot (S/N [id number]) CLINICAL INFORMATION: Current height: 62.3 inches Maximum [...] mass (T-score between -1.0 and -2.5) replaces the previously used term osteopenia Osteoporosis (T-score = or below -2.5) Please see below follow up recommendations. Medical evaluation for secondary causes of low bone mineral density may be appropriate. FRAX is a World Health Organization validated fracture risk assessment tool that calculates a person's 10 year probability of a major osteoporosis related fracture and hip fracture. According to the National Osteoporosis Foundation guidelines, postmenopausal [...] Josh Dave M.D. MF: DOUGLAS Report ID: [id number] Reading Location: [place] [address] Procedure Note Josh Dave MD - 11/14/2023 EXAM DESCRIPTION: DEXA AXIAL SKELETON BONE DENSITY 1 OR MORE SITES REASON FOR STUDY: 82 y/o year old F with given history of: screening Postmenopausal Wool Tamper/Model: Boston Boot (S/N [id number]) CLINICAL INFORMATION: Current height: 62.3 inches Maximum [...] Josh Dave M.D. MF: DOUGLAS Report ID: [id number] Reading Location: [place] [address] Melanie Oconnor NP IMG DXA PROCEDURES Final Res ult from Last 3 Months or Most Recently Relevant to Health Maintenance Insurance [employer] MEDICARE PPO [employer] CHOICE MEDICARE PPO Advance Directives For more information, please contact: [phone] * Full Code (Latest Code Status on File) Date Activated Date Inactivated Comments 02/05/2024 10:55 AM 02/05/2024 5:12 PM * Full Code Date Activated Date Inactivated Comments 02/05/2024 10:55 AM 02/05/2024 10:55 AM * Full Code Date Activated Date Inactivated Comments 12/11/2023 4:43 AM 12/14/2023 5:02 PM * Full Code Date Activated Date Inactivated Comments 06/05/2023 9:56 AM 06/07/2023 6:30 PM Care Teams Water Pumping Station Engineer Relationship Specialty Start Date End Date Melanie Oconnor NP [address] [facility] [place] [facility] [address] [place] [address] PCP - General Family Medicine 08/30/22 Maynor Washington Jr., MD [address] [place] [address] Consulting Physician Cardiovascular Disease 09/01/21 Vicky Cummins MD [address] [facility] [place] [facility] [address] [place] [address] Consulting Physician Gastroenterology 12/14/23 Liz Burns NP [address] [facility] [place] [facility] [address] [place] [address] Nurse Practitioner 05/05/24 [place] [address] [address] [place] [address] Consulting Physician Nephrology 11/10/24 [place] [address] [facility] [address] [place] [address] Optometry 11/10/24
--- OUTSIDE RECORDS SUMMARY | 2025-04-03 11:11 | XMS_ITS | Encounter Summary ---
Author Organization [facility] Address [address] [place] [address] Care Team Providers Care Service Counselor Name Role Phone Bc Kellogg MD Primary Care Provider + Aneta Campos NP Unavailable [phone] Remedios Tracy NP Primary Care Provider [phone] Padmini Lauren MD, Maynor Curiel Unavailable [phone] Fidencio Walker MD Unavailable [phone] Tito Steinberg MD Unavailable [phone] Melanie Oconnor COMMUNITY OUTREACH COORDINATOR Primary Care Provider Gricelda Guzman MA Unavailable Leola Breen MA Unavailable Vicky Cummins MD Unavailable [phone] Beverly Freed RN Unavailable Liz Burns NP Unavailable Bc Morillo MD Unavailable [phone] Karen Brooks OD Unavailable Reason for Visit * Reason Onset Date Comments Scheduling Appointments 08/10/2021 Confirmi ng mammogram appt Encounter Details Date Type Department Care Team (Late st Contact Info) Description 08/10/2021 Telephone [facility] [address] [place] [address] Renee Salter RT Scheduling Appointments (Confirming mammogram [...] on file Legal Sex Female 6:07 PM DISTRICT CAPTAIN Gender Identity Female 10/16/2021 7:51 PM DISTRICT CAPTAIN Sexual Orientation Not on file documented as of this encounter Plan of Treatment Not on file documented as of this encounter Visit Diagnoses Not on filedocumented in this encounter Additional Health Concerns Infection Onset Date Last Indicated Resolved Time C. difficile suspected 12/11/2023 12/11/202312/10 4:11 AM CDT Diarrhea 12/13/2023 12/13/2023 12/27/2023 3:07 AM CDT documented as of this encounter Care Teams Service Counselor Relationship Specialty Start Date End Date Bc Kellogg MD [address] [place] [address] [place] [address] PCP - General 07/17/20 08/31/21 Remedios Tracy NP [address] [place] [address] [place] [address] PCP - General Family Medicine 09/01/21 08/29/22 Melanie Oconnor NP [address] [place] [address] [place] [address] PCP - General Family Medicine 08/30/22 Aneta Campos NP [address] [place] [address] Nurse Practitioner Urology 09/01/21 06/13/22 Maynor Washington Jr., MD [address] [place] [address] Consulting Physician Cardiovascular Disease 09/01/21 Fidencio Wakler MD [address] [place] [address] Referring Physician Gastroenterology 09/01/21 06/13/22 Tito Steinberg MD [address] [facility] [place] [address] Referring Physician Ophthalmology 03/01/22 11/09/24 Gricelda Guzman MA [address] [place] [address] [address] [place] [address] ACO Care Rotary Drier Operator 06/08/23 06/08/23 Leola Breen MA [address] [place] [address] [address] [place] [address] ACO Care Rotary Drier Operator 09/26/23 09/26/23 Vicky Cummins MD [address] [place] [address] [place] [address] Consulting Physician Gastroenterology 12/14/23 Beverly Freed RN [address] [place] [address] [address] [place] [address] Broadcast News Producer 12/17/23 01/14/24 Liz Burns NP [address] [place] [address] [address] [place] [address] Nurse Practitioner 05/05/24 [place] [address] [facility] [address] [place] [address] Consulting Physician Nephrology 11/10/24 [place] [address] [facility] [address] [place] [address] Optometry 11/10/24 documented as of this encounter
--- OUTSIDE RECORDS SUMMARY | 2025-04-03 11:11 | XMS_ITS | Encounter Summary ---
Author Organization [facility] Address [address] [place] [address] Care Team Providers Care City Driver Name Role Phone Aneta Campos NP Unavailable Remedios Tracy NP Primary Care Provider [phone] Padmini Lauren MD, Maynor Curiel Unavailable [phone] Fidencio Walker MD Unavailable [phone] Tito Steinberg MD Unavailable Melanie Oconnor NEON SIGN ERECTOR Primary Care Provider Gricelda Guzman MA Unavailable Leola Breen MA Unavailable Vicky Cummins MD Unavailable Beverly Freed RN Unavailable Liz Burns NP Unavailable Bc Morillo MD Unavailable Karen Brooks OD Unavailable [phone] Encounter Details Date Type Department Care Team (Late st Contact Info) Description 09/23/2021 Telephone [facility] 1 [place] [address] Anastasia Kline, RT Social History Tobacco Use [...] on file Legal Sex Female 6:07 PM C T TECH Gender Identity Female 10/16/2021 7:51 PM C T TECH Sexual Orientation Not on file documented as of this encounter Plan of Treatment Not on file documented as of this encounter Visit Diagnoses Not on filedocumented in this encounter Additional Health Concerns Infection Onset Date Last Indicated Resolved Time C. difficile suspected 12/11/2023 12/11/202312/10 4:11 AM CDT Diarrhea 12/13/2023 12/13/2023 12/27/2023 3:07 AM CDT documented as of this encounter Care Teams City Driver Relationship Specialty Start Date End Date Remedios Tracy NP PCP - General Family Medicine 09/01/21 08/29/22 Melanie Oconnor NP [address] [place] [address] [address] [place] [address] PCP - General Family Medicine 08/30/22 Aneta Campos NP Nurse Practitioner Urology 09/01/21 06/13/22 Maynor Washington Jr., MD [address] [place] [address] Consulting Physician Cardiovascular Disease 09/01/21 Fidencio Walker MD [address] [place] [address] Referring Physician Gastroenterology 09/01/21 06/13/22 Tito Steinberg MD [address] [facility] [address] [place] [address] Referring Physician Ophthalmology 03/01/22 11/09/24 Gricelda Guzman MA [address] [place] [address] [address] [place] [address] ACO Care Volumetric Weigher 06/08/23 06/08/23 Leola Breen MA [address] [place] [address] [address] [place] [address] ACO Care Volumetric Weigher 09/26/23 09/26/23 Vicky Cummins MD [address] [place] [address] [address] [place] [address] Consulting Physician Gastroenterology 12/14/23 Beverly Freed RN [address] [place] [address] [address] [place] [address] Liquor Department Manager 12/17/23 01/14/24 Liz Burns NP [address] [place] [address] [address] [place] [address] Nurse Practitioner 05/05/24 [place] [address] [address] [place] [address] Consulting Physician Nephrology 11/10/24 Karen Brooks, [place]ATTY [address] [facility] [address] [place] [address] Optometry 11/10/24 documented as of this encounter
--- OUTSIDE RECORDS SUMMARY | 2025-04-03 11:11 | XMS_ITS | Encounter Summary ---
Author Organization [facility] Address [address] [place] [address] Phone Care Team Providers Care Ripsaw Grader Name Role Phone Bc Kellogg MD Primary Care Provider + Aneta Campos NP Unavailable [phone] Remedios Tracy NP Primary Care Provider Padmini Lauren MD, Maynor Curiel Unavailable Fidencio Walker MD Unavailable [phone] Tito Steinberg MD Unavailable [phone] Melanie Oconnor NP Primary Care Provider Gricelda Guzman MA Unavailable Leola Breen MA Unavailable Vicky Cummins MD Unavailable [phone] Beverly Freed RN Unavailable Liz Burns RELIEF CAPTAIN Unavailable Bc Morillo MD Unavailable Karen Brooks OD Unavailable Encounter Details Date Type Department Care Team (Late st Contact Info) Description 03/04/2021 [facility] [place] [facility] [address] [place] [address] [address] [place] [id number] Remedios Yang CMA Social History Tobacco Use [...] on file Legal Sex Female 6:07 PM SATELLITE TV INSTALLER Gender Identity Female 10/16/2021 7:51 PM SATELLITE TV INSTALLER Sexual Orientation Not on file documented as of this encounter Plan of Treatment Not on file documented as of this encounter Visit Diagnoses Not on filedocumented in this encounter Additional Health Concerns Infection Onset Date Last Indicated Resolved Time C. difficile suspected 12/11/2023 12/11/202312/10 4:11 AM CDT Diarrhea 12/13/2023 12/13/2023 12/27/2023 3:07 AM CDT documented as of this encounter Care Teams Ripsaw Grader Relationship Specialty Start Date End Date Bc Kellogg MD [address] [place] [address] [place] [address] PCP - General 07/17/20 08/31/21 Remedios Tracy NP [address] [place] [address] [place] [address] PCP - General Family Medicine 09/01/21 08/29/22 Melanie Oconnor NP [address] [place] [address] [place] [address] PCP - General Family Medicine 08/30/22 Aneta Campos NP [address] [facility] [address] Nurse Practitioner Urology 09/01/21 06/13/22 Maynor Washington Jr., MD [address] [place] [address] Consulting Physician Cardiovascular Disease 09/01/21 Fidencio Walker MD [address] [place] [address] Referring Physician Gastroenterology 09/01/21 06/13/22 Tito Steinberg MD [address] [facility] [address] [place] [address] Referring Physician Ophthalmology 03/01/22 11/09/24 Gricelda Guzman MA [address] [place] [address] [address] [place] [address] ACO Care Decision Unit Rn 06/08/23 06/08/23 Leola Breen MA [address] [place] [address] [address] [place] [address] ACO Care Decision Unit Rn 09/26/23 09/26/23 Vicky Cummins MD [address] [place] [address] [address] [place] [address] Consulting Physician Gastroenterology 12/14/23 Beverly Freed RN [address] [place] [address] [address] [place] [address] Conveyor Maintenance Mechanic 12/17/23 01/14/24 Liz Burns NP [address] [place] [address] [address] [place] [address] Nurse Practitioner 05/05/24 [place] [address] [facility] [address] [place] [address] Consulting Physician Nephrology 11/10/24 [place] [address] [facility] [address] [place] [address] Optometry 11/10/24 documented as of this encounter
--- OUTSIDE RECORDS SUMMARY | 2025-04-03 11:11 | XMS_ITS | Clinical Summary ---
Author Organization [facility] Address [address] [place] [address] Care Team Providers Care Arc Furnace Operator Name Role Phone Padmini Lauren MD, Maynor Cuirel Unavailable Melanie Oconnor MAKE UP ARTIST Primary Care Provider [phone] Vicky Cummins MD Unavailable [phone] Liz Burns MAKE UP ARTIST Unavailable Bc Morillo MD Unavailable Karen Brooks [...] mcg tabletIndications: Acquired hypothyroidism TAKE 1 TABLET INJECTION MOLD TOOLING TECHNICIAN BEFORE BREAKFAST 90 tablet 3 04/04/20 24 [...] counselor Assessment & Plan (11/12/2024 1:33 PM MOTOR VEHICLE TECHNICIAN): -chronic, new -Discussed/ordered labs -Patient does not [...] needed Assessment & Plan (11/12/2024 1:33 PM MOTOR VEHICLE TECHNICIAN): -chronic, new -Discussed/ordered labs -Patient does not [...] 11/16/2023 Assessment & Plan (11/10/2024 2:30 PM MOTOR VEHICLE TECHNICIAN): -chronic, stable -last bone density completed 11/14/2023 -continue on calcium and vitamin-D supplements daily Assessment & Plan (05/05/2024 2:26 PM CDT): -chronic, stable -last bone density completed 11/14/2023 -continue on calcium and vitamin-D supplements daily Chronic kidney disease, stage 3b 11/05/2023 Assessment & Plan (11/10/2024 2:28 PM MOTOR VEHICLE TECHNICIAN): -chronic, stable -Discussed/ordered labs -continue working on blood pressure control -drink plenty of water and avoid NSAIDs -continue seeing Nephrology Assessment & Plan (05/05/2024 2:23 PM CDT): -chronic, stable -Discussed/ordered labs -continue working on blood pressure control -drink plenty of water and avoid NSAIDs -continue seeing Nephrology Assessment & Plan (11/05/2023 2:38 PM MOTOR VEHICLE TECHNICIAN): -chronic, slightly worsening -Discussed/ordered labs -continue working with Cardiology to control blood pressure -drink plenty of water and avoid NSAIDs -if numbers continue to worsen, we will refer to Nephrology Diabetes mellitus, type 2 06/20/2023 Assessment & Plan (11/10/2024 2:29 PM MOTOR VEHICLE TECHNICIAN): Condition is stable Personally reviewed A1c 5.6% [...] Diabetes Complications History of macrovascular disease (CVA, AR, PVD) is Present. Complications secondary to Diabetes [...] Diabetes Complications History of macrovascular disease (CVA, AR, PVD) is Present. Complications secondary to Diabetes [...] 06/04/2023 Assessment & Plan (11/10/2024 2:30 PM MOTOR VEHICLE TECHNICIAN): -chronic, stable -Discussed/ordered labs -continue on amiodarone 200 mg daily and Xarelto 20 mg daily -continue seeing Cardiology Assessment & Plan (05/05/2024 2:23 PM CDT): -chronic, stable -Discussed/ordered labs -continue on amiodarone 200 mg daily and Xarelto 20 mg daily -continue seeing Cardiology Assessment & Plan (08/30/2023 4:04 PM MOTOR VEHICLE TECHNICIAN): Acute problem- this is a new problem [...] 03/01/2022 Assessment & Plan (11/10/2024 2:30 PM MOTOR VEHICLE TECHNICIAN): -chronic, stable -Discussed/ordered labs -continue on vitamin D3 5000 units daily Assessment & Plan (05/05/2024 2:22 PM CDT): -chronic, stable -Discussed/ordered labs -continue on vitamin D3 5000 units daily Assessment & Plan (11/05/2023 2:37 PM MOTOR VEHICLE TECHNICIAN): -chronic, stable -Discussed/ordered labs -continue on vitamin D3 5000 units daily Assessment & Plan (08/30/2023 3:59 PM MOTOR VEHICLE TECHNICIAN): Chronic problem-stable Continue vitamin D3 5,000 international [...] daily Assessment & Plan (08/29/2022 10:30 AM MOTOR VEHICLE TECHNICIAN): HPI: Condition is stable A&P: Discussed/ordered labs, [...] capsules 5000 units daily-this will be a shelter medication Glaucoma of both eyes 03/01/2022 Assessment & Plan (03/02/2023 7:14 AM CDT): HPI: Condition is stable A&P: Continue seeing Dr. Steinberg at [facility] and using xalatain eyedrops nightly bilaterally Assessment & Plan (08/30/2022 10:50 AM MOTOR VEHICLE TECHNICIAN): Condition is controlled. Patient is seeing Dr. Steinberg at [facility] Continue using xalatain eyedrops nightly bilaterally Assessment & Plan (03/01/2022 9:31 AM CDT): Sees Dr. Steinberg at [facility]. Using xalatain eye drops nightly bilaterally. Sick sinus syndrome 06/01/2021 Assessment & Plan (11/12/2024 1:28 PM MOTOR VEHICLE TECHNICIAN): -chronic, stable -Continue seeing Dr. Washington cardiology. -Continue on amiodarone 200 mg daily, losartan 50 mg daily, metoprolol XL 25 mg daily, pravastatin 10 mg daily, Xarelto 20 mg daily, and furosemide 20 mg daily -recommend healthy, low-salt diet Assessment & Plan (11/05/2023 2:37 PM MOTOR VEHICLE TECHNICIAN): -chronic, stable -Continue seeing Dr. Washington cardiology. [...] daily. Assessment & Plan (08/29/2022 10:29 AM MOTOR VEHICLE TECHNICIAN): HPI: Condition is stable A&P: Discussed/ordered labs, [...] daily Assessment & Plan (09/01/2021 9:52 AM MOTOR VEHICLE TECHNICIAN): HPI: Condition is stable A&P: Discussed/ordered labs, [...] file Assessment & Plan (08/30/2023 3:59 PM MOTOR VEHICLE TECHNICIAN): Chronic problem Pacemaker present to left upper [...] daily. Assessment & Plan (08/29/2022 10:29 AM MOTOR VEHICLE TECHNICIAN): Biotronik pacemaker placed February 2021 HPI: Condition is stable A&P: Discussed/ordered labs, encouraged healthy, low carbohydrate lifestyle and at least 150min/week of exercise, continue pacemaker checks and seeing Dr. Padmini watreman. Continue on amlodipine 10 mg daily, aspirin [...] daily Assessment & Plan (09/01/2021 9:52 AM MOTOR VEHICLE TECHNICIAN): This only started last November with low heart rate, had pacemaker placed February 2021. Dyspnea on exertion 02/09/2021 Assessment & Plan (11/05/2023 2:35 PM MOTOR VEHICLE TECHNICIAN): -chronic, stable -Continue seeing Dr. Padmini waterman. [...] daily. Assessment & Plan (08/29/2022 10:29 AM MOTOR VEHICLE TECHNICIAN): HPI: Condition is stable A&P: Discussed/ordered labs, [...] daily Assessment & Plan (09/01/2021 9:52 AM MOTOR VEHICLE TECHNICIAN): HPI: Condition is stable A&P: Discussed/ordered labs, encouraged healthy, low carbohydrate lifestyle and at least 150min/week of exercise, continue with pacemaker checks and seeing Dr. Washington (cardiology). Pt dues for pacemaker check and echocardiogram in November 2021. This only started last November with low heart rate, had pacemaker placed February 2021. Recurrent UTI 01/31/2021 Assessment & Plan (11/05/2023 2:36 PM MOTOR VEHICLE TECHNICIAN): -chronic, stable -Discussed/ordered labs -patient reports she is no longer seeing Urology. Offered new referral, but patient declines at this time Assessment & Plan (03/02/2023 7:18 AM CDT): HPI: Condition is stable A&P: Discussed/ordered labs, encouraged healthy, low carbohydrate lifestyle and at least 150min/week of exercise, continue seeing Aneta Campos NP urology as needed. Assessment & Plan (08/30/2022 10:40 AM MOTOR VEHICLE TECHNICIAN): HPI: Condition is stable A&P: Discussed/ordered labs, [...] surgery. Assessment & Plan (09/01/2021 10:11 AM MOTOR VEHICLE TECHNICIAN): HPI: Condition is not at/near goal A&P: Discussed/ordered labs, encouraged healthy, low carbohydrate lifestyle and at least 150min/week of exercise, pt saw specialist and is not a candidate for surgery. Pt is established with deb Eaton. 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 Washington cardiology. -Continue on amiodarone 200 mg daily, losartan 50 mg 2 tablets daily, metoprolol XL 50 mg daily, pravastatin 10 mg daily, Xarelto 20 mg daily Assessment & Plan (11/05/2023 2:34 PM MOTOR VEHICLE TECHNICIAN): -chronic, stable -Continue seeing Dr. Washington cardiology. [...] daily. Assessment & Plan (08/29/2022 10:25 AM MOTOR VEHICLE TECHNICIAN): HPI: Condition is stable A&P: Discussed/ordered labs, [...] daily Assessment & Plan (09/01/2021 10:08 AM MOTOR VEHICLE TECHNICIAN): HPI: Condition is stable A&P: Discussed/ordered labs, encouraged healthy, low carbohydrate lifestyle and at least 150min/week of exercise, continue with pacemaker checks and seeing Dr. Washington (cardiology). Pt dues for pacemaker check and echocardiogram in November 2021. This only started last November with low heart rate, had pacemaker placed February 2021. Hyperlipidemia 07/10/2018 Assessment & Plan (11/10/2024 2:29 PM MOTOR VEHICLE TECHNICIAN): -chronic, stable - Discussed/ordered labs - continue on fish oil 2000 mg daily and pravastatin 10 mg daily. Assessment & Plan (05/05/2024 2:22 PM CDT): -chronic, stable - Discussed/ordered labs - continue on fish oil 2000 mg daily and pravastatin 10 mg daily. Assessment & Plan (11/05/2023 2:35 PM MOTOR VEHICLE TECHNICIAN): -chronic, stable - Discussed/ordered labs - continue on fish oil 2000 mg daily and pravastatin 10 mg daily. Assessment & Plan (08/30/2023 4:07 PM MOTOR VEHICLE TECHNICIAN): Chronic problem-improving HDL 44 Trigs 198 Continue [...] daily. Assessment & Plan (08/30/2022 10:42 AM MOTOR VEHICLE TECHNICIAN): HPI: Condition is stable A&P: Discussed/ordered labs, [...] exercise Assessment & Plan (09/01/2021 10:03 AM MOTOR VEHICLE TECHNICIAN): HPI: Condition is improving, but not at goal A&P: Discussed/ordered labs, encouraged healthy, low carbohydrate lifestyle and at least 150min/week of exercise, continue on fish oil 2000 mg daily, pravastatin 10mg daily, increase exercise Glaucoma suspect of both eyes 10/29/2017 Fatty liver 11/16/2015 Assessment & Plan (11/10/2024 2:29 PM MOTOR VEHICLE TECHNICIAN): -chronic, stable -Discussed/ordered labs -keep weight under tight control. Assessment & Plan (11/05/2023 2:35 PM MOTOR VEHICLE TECHNICIAN): -chronic, stable -Discussed/ordered labs -keep weight under tight control. Assessment & Plan (03/02/2023 7:17 AM CDT): HPI: Condition is stable A&P: Discussed/ordered labs, encouraged healthy, low carbohydrate lifestyle and at least 150min/week of exercise, keep weight under tight control. Assessment & Plan (08/29/2022 10:26 AM MOTOR VEHICLE TECHNICIAN): HPI: Condition is stable A&P: Discussed/ordered labs, encouraged healthy, low carbohydrate lifestyle and at least 150min/week of exercise, keep weight under tight control. Assessment & Plan (03/01/2022 7:01 AM CDT): HPI: Condition is stable A&P: Discussed/ordered labs, encouraged healthy, low carbohydrate lifestyle and at least 150min/week of exercise, Keep weight under tight control Assessment & Plan (09/01/2021 10:07 AM MOTOR VEHICLE TECHNICIAN): HPI: Condition is stable A&P: Discussed/ordered labs, encouraged healthy, low carbohydrate lifestyle and at least 150min/week of exercise, continue on low fat, low carb diet, keep weight under control Optic cupping 07/28/2015 Pseudophakia 07/20/2014 Cystocele with prolapse 10/31/2010 Assessment & Plan (11/05/2023 2:35 PM MOTOR VEHICLE TECHNICIAN): -chronic, stable -Discussed/ordered labs -patient reports she [...] surgery Assessment & Plan (08/30/2022 10:40 AM MOTOR VEHICLE TECHNICIAN): HPI: Condition is stable A&P: Discussed/ordered labs, [...] surgery. Assessment & Plan (09/01/2021 10:11 AM MOTOR VEHICLE TECHNICIAN): HPI: Condition is not at/near goal A&P: Discussed/ordered labs, encouraged healthy, low carbohydrate lifestyle and at least 150min/week of exercise, pt saw specialist and is not a candidate for surgery. Pt is established with Aneta Campos urology. Please f/u with her as needed Primary hypertension 07/12/2009 Assessment & Plan (11/10/2024 2:30 PM MOTOR VEHICLE TECHNICIAN): -chronic, stable -Continue seeing Dr. Washington cardiology. [...] therapy Assessment & Plan (11/05/2023 2:34 PM MOTOR VEHICLE TECHNICIAN): -chronic, not at goal -Continue seeing Dr. Washington cardiology. -Continue on amiodarone 200 mg daily, losartan 50 mg 2 tablets daily, metoprolol XL 50 mg daily, pravastatin 10 mg daily, Xarelto 20 mg daily Assessment & Plan (08/30/2023 4:09 PM MOTOR VEHICLE TECHNICIAN): Chronic problem- stable with current regimen BP [...] water. Assessment & Plan (08/29/2022 10:27 AM MOTOR VEHICLE TECHNICIAN): HPI: Condition is stable A&P: Discussed/ordered labs, [...] diet Assessment & Plan (09/01/2021 10:19 AM MOTOR VEHICLE TECHNICIAN): HPI: Condition is stable A&P: Discussed/ordered labs, [...] 07/12/2009 Assessment & Plan (11/10/2024 2:30 PM MOTOR VEHICLE TECHNICIAN): -chronic, stable -Discussed/ordered labs - continue on levothyroxine 125 mcg daily Assessment & Plan (05/05/2024 2:22 PM CDT): -chronic, stable -Discussed/ordered labs - continue on levothyroxine 125 mcg daily Assessment & Plan (11/05/2023 2:35 PM MOTOR VEHICLE TECHNICIAN): -chronic, stable -Discussed/ordered labs - continue on levothyroxine 112 mcg daily Assessment & Plan (08/30/2023 4:06 PM MOTOR VEHICLE TECHNICIAN): Chronic problem-not at goal TSH 4.66 Continue [...] daily Assessment & Plan (08/29/2022 10:27 AM MOTOR VEHICLE TECHNICIAN): HPI: Condition is stable A&P: Discussed/ordered labs, [...] daily Assessment & Plan (09/01/2021 10:01 AM MOTOR VEHICLE TECHNICIAN): HPI: Condition is not at/near goal TSH [...] daily Assessment & Plan (08/30/2022 10:42 AM MOTOR VEHICLE TECHNICIAN): HPI: Condition is stable Reports it flares [...] Please start taking probiotic 20-50billion CFU daily shelter. This will help maintain the good bacteria that is in your gut. Assessment & Plan (09/01/2021 9:59 AM MOTOR VEHICLE TECHNICIAN): HPI: Condition is stable she used to [...] 12/17/19 Assessment & Plan (11/05/2023 2:39 PM MOTOR VEHICLE TECHNICIAN): -chronic, stable goal BMI <30 Healthy, high-protein, lower carbohydrate, lower fat lifestyle and exercise for 150min/week recommended Recommend tracking everything you put in your mouth on an jaylan like LoopIt Hand Measurements: A fist or cupped hand [...] in your mouth on an jaylan like LoopIt Hand Measurements: A fist or cupped hand [...] cup. Assessment & Plan (08/29/2022 10:30 AM MOTOR VEHICLE TECHNICIAN): HPI: Condition is stable goal BMI <30 A&P: Healthy, high-protein, lower carbohydrate, lower fat lifestyle and exercise for 150min/week recommended Recommend tracking everything you put in your mouth on an jaylan like LoopIt Hand Measurements: A fist or cupped hand [...] 05/05/2024 Assessment & Plan (11/05/2023 2:36 PM MOTOR VEHICLE TECHNICIAN): -chronic, stable -Discussed/ordered labs -encouraged healthy, low carbohydrate lifestyle and at least 150min/week of exercise. Assessment & Plan (08/30/2023 4:02 PM MOTOR VEHICLE TECHNICIAN): Chronic problem-improving at goal of A1C < [...] exercise. Assessment & Plan (08/29/2022 10:29 AM MOTOR VEHICLE TECHNICIAN): HPI: Condition is stable Patient had been [...] visit. Assessment & Plan (09/01/2021 10:10 AM MOTOR VEHICLE TECHNICIAN): HPI: Condition is at goal A1c today [...] fracture of greater trochanter of right femur (HCC) 10/25/2017 Rash of body 03/02/2023 BMI 26.0-26.9,adult 06/14/2022 Hyponatremia 12/11/2023 After cataract of right eye not obscuring vision 10/29/2017 TERI (acute kidney injury) 12/11/2023 Atrial fibrillation (HCC) Family History Medical History Relation Name [...] drink = 0.6 oz pur e alcohol) [facility] Utilities Answer Date Recorded In [...] often do you attend chur ch or synagogue services? More than 4 times per year 12/17/2023 Do you belong to any clubs o r organizations such as catholic groups, unions, fraternal or athletic groups, or [...] place to sleep or slept in a halfway (including now)? No 12/17/2023 Personal Safety Answer [...] on file Legal Sex Female 6:07 PM MOTOR VEHICLE TECHNICIAN Gender Identity Female 10/16/2021 7:51 PM MOTOR VEHICLE TECHNICIAN Sexual Orientation Not on file Obstetrics History Para Term AB IAB SAB Ectopic Multiple Livin g Live Births 4 Date Outcome GA Total Labor Labor/2nd/3rd Weight Sex Type Anes PTL Shira A1 A5 Name Clin Last Filed Vital Signs Vital Sign Reading Time Taken Comments Blood Pressure 132/79 12/26/2024 1:11 PM CDT Pulse 66 11/10/2024 2:10 PM MOTOR VEHICLE TECHNICIAN Temperature 37.2 C (98.9 F) 12/26/2024 12:57 PM CDT Respiratory Rate 18 12/26/2024 12:57 PM CDT Oxygen Saturation 99% 11/10/2024 2:10 PM MOTOR VEHICLE TECHNICIAN Inhaled Oxygen Concentration - - Weight 69.4 kg (153 lb) 12/26/2024 12:57 PM CDT Height 160 cm (5' 2.99) 12/26/2024 12:57 PM CDT Body Mass Index 27.11 12/26/2024 12:57 PM CDT Plan of Treatment Health Maintenance Due Date Last Done Comments Dilated Eye Exam 1940 Zoster Vaccine (2 of 3) 12/06/2012 10/11/2012 Covid-19 Vaccine (2023-2 5 season) 2024 08/08/2023, 07/07/2022, 07/28/2021, Additional history exists Well Visit 65+ 11/05/2024 11/05/2023, 06/14/2022 Hemoglobin A1C 05/03/2025 11/03/2024, 04/0 01/2024, 12/11/2023, Additional history exists Albumin Creatinine Ratio, Urine 05/05/2025 Foot Exam 05/05/2025 05/05/2024 Lipid Panel 11/03/2025 11/03/2024, 04/0 01/2024, 11/01/2023, Additional history exists eGFR 11/03/2025 11/03/2024, 05/1 03/2024, 12/28/2023, Additional history exists Osteoporosis Screening-Bone Density Scan 11/14/2025 11/14/2023, 09/26/2021 Depression Screening 12/26/2025 12/26/2024, 11/10/2024, 05/05/2024, Additional history exists Fall Risk Assessment 12/26/2025 12/26/2024, 11/10/2024, 05/05/2024, Additional history exists DTaP/Tdap/Td Vaccine (2 - Td or Tdap) 11/05/2033 11/05/2023 Pneumococcal vaccine 65+ Completed 018, 11/17/2016, 11/16/2015 Hepatitis B Screening Completed 11/03/2024 Influenza Vaccine Completed 11/10/2024, , 06/14/2022, Additional history exists Medical Devices Implanted Type Area Pack Out Operator Device Identifier Shelf Expiration Date Model / Serial / Lot Pacemaker Pacemaker Left: Chest Procedures Procedure Name Priority Date/Time Associated Diagnosis Comments COMPREHENSIVE METABOLIC PANEL Routine 11/03/2024 1:45 PM MOTOR VEHICLE TECHNICIAN Chronic kidney disease, stage 3b (HCC) Type 2 diabetes mellitus with stage 3a chronic kidney disease, without long-term current use of insulin (HCC) Fatigue, unspecified type HEMOGLOBIN A1C Routine 11/03/2024 1:45 PM MOTOR VEHICLE TECHNICIAN Chronic kidney disease, stage 3b (HCC) Type 2 diabetes mellitus with stage 3a chronic kidney disease, without long-term current use of insulin (HCC) Fatigue, unspecified type LIPID PANEL Routine 11/03/2024 1:45 PM MOTOR VEHICLE TECHNICIAN Mixed hyperlipidemia Chronic kidney disease, stage 3b [...] Read Routine (OP Routine) 11/14/2023 1:28 PM MOTOR VEHICLE TECHNICIAN Other specified disorders of bone density and structure, multiple sites from Last 3 Months or Most Recently Relevant to Health Maintenance Results * Hemoglobin A1c (11/03/2024 1:45 PM MOTOR VEHICLE TECHNICIAN) Hgb A1C 5.6 <5.7 % of total Hgb [facility] Comment: For the purpose of screening for the presence of diabetes: <5.7% Consistent with the absence of diabetes 5.7-6.4% Consistent with increased risk for diabetes (prediabetes) > or =6.5% Consistent with diabetes This assay result is consistent with a decreased risk of diabetes. Currently, no consensus exists regarding use of hemoglobin A1c for diagnosis of diabetes in children. According to [place] Diabetes Association (ADA) guidelines, hemoglobin A1c <7.0% represents optimal control in non- diabetic patients. Different metrics may apply to specific patient populations. Standards of Medical Care in Diabetes(ADA). Blood 11/03/2024 1:45 PM MOTOR VEHICLE TECHNICIAN 11/03/2024 1:46 PM MOTOR VEHICLE TECHNICIAN Narrative [facility] - 11/04/2024 8:46 AM MOTOR VEHICLE TECHNICIAN FASTING:YES FASTING: YES Melanie Oconnor NP LAB BLOOD ORDERABLES Final R esult [facility] [address] [place] [address] * (ABNORMAL) Lipid panel (11/03/2024 1:45 PM MOTOR VEHICLE TECHNICIAN) Cholesterol 178 <200 mg/dL [facility] [...] LDL-C. Dick FLYNN et al. DURGA. 2013;310(19): 8850-3875 (http://education.WordSentry/faq/COW155) Chol/HDL ratio 3.6 <5.0 (calc) [facility] Non-HDL, (LDL+VLDL) 129 <130 mg/dL (calc) [facility] Comment: For patients with diabetes plus 1 major ASCVD risk factor, treating to a non-HDL-C goal of <100 mg/dL (LDL-C of <70 mg/dL) is considered a therapeutic option. Blood 11/03/2024 1:45 PM MOTOR VEHICLE TECHNICIAN 11/03/2024 1:46 PM MOTOR VEHICLE TECHNICIAN Narrative [facility] - 11/04/2024 8:46 AM MOTOR VEHICLE TECHNICIAN FASTING:YES FASTING: YES Melanie Oconnor NP LAB BLOOD ORDERABLES Final R esult [facility] [address] [phone] * (ABNORMAL) Comprehensive metabolic panel (11/03/2024 1:45 PM MOTOR VEHICLE TECHNICIAN) Glucose 94 65 - 99 mg/dL [facility] [...] [facility] Blood 11/03/2024 1:45 PM MOTOR VEHICLE TECHNICIAN 11/03/2024 1:46 PM MOTOR VEHICLE TECHNICIAN Narrative [facility] - 11/04/2024 8:46 AM MOTOR VEHICLE TECHNICIAN FASTING:YES FASTING: YES Melanie Oconnor NP LAB BLOOD ORDERABLES Final R esult [facility] [address] [address] [phone] * (ABNORMAL) Albumin Creatinine Ratio, Urine (05/05/2024 2:14 PM CDT) Albumin Ur 15.9 mg/L Comment: Interpretive Data No reference range established. Current interpretive data was last revised 2019. Creatinine Ur 31.8 mg/dL [facility] Comment: Interpretive Data No reference range established. Current interpretive data was last revised 2019. Albumin Creatinine Ratio, Ur 50(H) 1 - 29 mg/g [facility] Urine 05/05/2024 2:14 PM CDT 05/05/2024 7:48 PM CDT Melanie Oconnor NP LAB URINE ORDERABLES Final R esult [facility] [address] Department [place] [address] * Dexa Axial Skeleton Bone Density 1 or 2 Site (11/14/2023 1:28 PM MOTOR VEHICLE TECHNICIAN) Anatomical Region Laterality Modality Body N/A Other 11/14/2023 6:14 PM MOTOR VEHICLE TECHNICIAN Narrative 11/14/2023 6:15 PM MOTOR VEHICLE TECHNICIAN EXAM DESCRIPTION: DEXA AXIAL SKELETON BONE DENSITY 1 OR MORE SITES REASON FOR STUDY: 82 y/o year old F with given history of: screening Postmenopausal Pack Out Operator/Model: [employer]ovation (S/N [id number]) CLINICAL INFORMATION: Current height: 62.3 inches Maximum [...] Josh Dave M.D. MF: DOUGLAS Report ID: [id number] Reading Location: [place] [address] Procedure Note Josh aDve MD - 11/14/2023 EXAM DESCRIPTION: DEXA AXIAL SKELETON BONE DENSITY 1 OR MORE SITES REASON FOR STUDY: 82 y/o year old F with given history of: screening Postmenopausal Pack Out Operator/Model: HydroNovation (S/N [id number]) CLINICAL INFORMATION: Current height: 62.3 inches Maximum [...] Josh Dave M.D. MF: DOUGLAS Report ID: [id number] Reading Location: [place] [address] Melanie Oconnor NP IM DXA PROCEDURES Final Res ult from Last 3 Months or Most Recently Relevant to Health Maintenance Insurance [employer] MEDICARE PPO [employer] MEDIC[employer] PPO Advance Directives For more information, please contact: [phone] * Full Code (Latest Code Status on File) Date Activated Date Inactivated Comments 02/05/2024 10:55 AM 02/05/2024 5:12 PM * Full Code Date Activated Date Inactivated Comments 02/05/2024 10:55 AM 02/05/2024 10:55 AM * Full Code Date Activated Date Inactivated Comments 12/11/2023 4:43 AM 12/14/2023 5:02 PM * Full Code Date Activated Date Inactivated Comments 06/05/2023 9:56 AM 06/07/2023 6:30 PM Care Teams Arc Furnace Operator Relationship Specialty Start Date End Date Melanie Oconnor NP [address] [place] [address] PCP - General Family Medicine 08/30/22 Maynor Washington Jr., MD [address] [place] [address] Consulting Physician Cardiovascular Disease 09/01/21 Vicky Cummins MD [address] [place] [address] [address] [place] [address] Consulting Physician Gastroenterology 12/14/23 Liz Burns NP [address] [place] [address] [address] [place] [address] Nurse Practitioner 05/05/24 [place] [address] [facility] [address] [place] [address] Consulting Physician Nephrology 11/10/24 [place] [address] [facility] [address] [place] [address] Optometry 11/10/24
--- NOTE | 2025-04-03 12:01 | ED.FALL ---
HPI - Fall General Chief Complaint: Extremity Injury, Upper Stated Complaint: Fall Injury/Left Shoulder Injury Time Seen by Provider: 04/03/25 11:45 Source: patient and RN notes reviewed Mode of arrival: ambulatory Limitations: no limitations History of Present Illness HPI Narrative: 84-year-old female presents [facility] complaining of fall approximately 2 weeks ago. Patient says use been down to grab some down the ground she lost her balance and fell and landed on her left shoulder. Patient planned left shoulder pain. Patient denies any in her head, loss of consciousness, neck pain, back pain, chest pain, difficulty breathing, headaches, nausea, vomiting, vision changes, dizziness, lightheadedness, or any other symptoms. Patient says she has a history of a clavicle fracture. Patient does take Xarelto for atrial fibrillation and says she has a history of aortic stenosis. Related Data Home Medications ?Medication ?Instructions ?Recorded ?Confirmed ?Last Taken ?Type ascorbic acid (vitamin C) 100 mg 100 mg PO DAILY 03/13/22 10/24/24 Unknown History tablet cholecalciferol (vitamin D3) 10 10 mcg PO DAILY 03/13/22 10/24/24 Unknown History mcg (400 unit) tablet latanoprost 0.005 % eye drops See Rx Instructions .Route .COMPLEX 03/13/22 10/24/24 Unknown History levothyroxine 100 mcg tablet 100 tablet PO DAILY 03/13/22 10/24/24 Unknown History omega 2-tvq-zib-fish oil 1,000 mg 1 cap PO DAILY 03/13/22 10/24/24 Unknown History (120 mg-180 mg) capsule pravastatin 10 mg tablet 10 tablet PO DAILY 03/13/22 10/24/24 Unknown History vitamin E 268 mg (400 unit) capsule 268 mg PO DAILY 01/05/23 10/24/24 Unknown History amiodarone PO 08/15/24 Unknown History losartan 25 mg tablet 25 mg PO BID 08/15/24 10/24/24 Unknown History metoprolol succinate PO 08/15/24 Unknown History rivaroxaban 20 mg tablet (Xarelto) 20 mg PO DAILY 08/15/24 10/24/24 Unknown History B-12 Compliance 10/24/24 Unknown History metoprolol succinate 25 mg mg PO 10/24/24 Unknown History tablet,extended release 24 hr vitamin A 10/24/24 Unknown History zinc 10/24/24 Unknown History Allergies Allergy/AdvReac Type Severity Reaction Status Date / Time guselkumab Allergy Severe Rash Verified 10/24/24 15:59 gemfibrozil Allergy Intermediate Hives / Verified 10/24/24 15:59 Red Face Review of Systems Review of Systems: CONSTITUTIONAL: Denies fever, chills, or sweats. EYES: Denies visual changes, double vision, blurry vision, redness, or discharge. ENT: Denies rhinorrhea, congestion, sore throat, or otalgia. CARDIOVASCULAR: Denies chest pain, palpitations, loss of consciousness, lightheadedness, dizziness, or edema. RESPIRATORY: Denies cough, pain with inspiration, or dyspnea. GASTROINTESTINAL: Denies abdominal pain, nausea, vomiting, or diarrhea. GENITOURINARY: Denies dysuria or hematuria. SKIN: Denies rash or itching. MUSCULOSKELETAL: Denies back pain, joint pain, or myalgia. Positive for left shoulder pain. NEUROLOGIC: Denies headache, numbness, or weakness. PSYCHIATRIC: Denies anxiety or depression. All other systems reviewed are negative, except as documented in HPI. [facility] Past Medical History Medical History IBS (irritable bowel syndrome) Elevated cholesterol Hypothyroid Hypertension Pacemaker Surgical History Surgical History H/O shoulder surgery left related to fracture H/O: hysterectomy Hx of cholecystectomy Family History Family History Unknown Heart disease Social History Social History Smoking status: Never smoker Alcohol intake: never Alcohol use details: rare social Substance use: never Living arrangements: with family Occupation/Education: retired Gender identity (if verbalized by the patient): Female Comments At the time of my signature, I reviewed and agree with the nursing past medical, surgical, social, and family history. There is no relevant family history pertinent to the patient complaint. Exam Narrative: GENERAL: This is a well-nourished, well-developed adult, in no apparent distress. They are non ill-appearing, nontoxic appearing. HEAD: normocephalic, atraumatic. No Young signs or raccoon eyes. EYES: Sclera clear/white. Conjunctiva normal. Vision is grossly intact. Extraocular movements intact. Pupils PERRLA EARS: External ears normal, Hearing grossly intact. NOSE: External nose normal THROAT: Mucous membranes moist, NECK: Neck supple, non-tender without lymphadenopathy, masses or thyromegaly. No cervical point tenderness, no midline tenderness, no crepitus, step-offs. CARDIOVASCULAR: Regular rate and rhythm gallops, clicks, or rubs. Midsystolic murmur best heard at the left upper sternal border 4/6. RESPIRATORY: Clear to auscultation. Breath sounds equal bilaterally. No wheezes, rales, or rhonchi. Respiratory rate normal, respiratory effort nonlabored, no respiratory distress CHEST WALL: No tenderness to palpation, no paradoxical chest movement, no flail chest segment. SKIN: warm, Dry, intact with no suspicious lesions or rash, good texture and turgor. NEURO: awake, alert, and oriented to person, place and time. There were no obvious focal neurologic abnormalities. EXTREMITIES: Left shoulder: Tenderness to palpation to the lateral shoulder. Limited range of motion due to pain. Patient is able to abduct and adduct her shoulder, pain with shoulder flexion and extension. Normal sensation, capillary refill less than 2 seconds, left radial pulse 2 +and palpable, digital press operator strength 5/5, neurovascular status intact distal injury. Patient is able to wiggle her fingers. No tenderness to palpation to clavicle. BACK: Nontender without deformity. No CVA tenderness. No thoracic or lumbar point tenderness, no crepitus, or step-offs. Course Course Emergency Course: Portions of this record may have been created with voice recognition software Level of Care: Express Care Visit Vital Signs Vital signs: Vital Signs Temperature 97.6 F 04/03/25 11:10 Pulse Rate 77 04/03/25 11:10 Respiratory Rate 24 H 04/03/25 11:10 Blood Pressure 180/79 H 04/03/25 11:10 Pulse Oximetry 100 04/03/25 11:10 Oxygen Delivery Room Air 04/03/25 11:10 Temperature 97.6 F 04/03/25 11:10 Pulse Rate 77 04/03/25 11:10 Respiratory Rate 24 H 04/03/25 11:10 Blood Pressure 180/79 H 04/03/25 11:10 Pulse Oximetry 100 04/03/25 11:10 Oxygen Delivery Room Air 04/03/25 11:10 Reviewed MDM - Fall MDM Narrative Medical decision making narrative: Patient adamantly denies hitting her head or injuring her neck or back when she fell, injury occurred 2 weeks ago. Patient is on blood thinners, unremarkable neuro exam. X-ray left shoulder shows no acute fractures or acute findings. There is a non healed chronic fracture to the distal in the clavicle is shown on previous x-rays. Arthritis changes noted as well. Patient has an orthopedist will follow up with them for further evaluation. Offered patient sling but she states she has 1 at home. Discussed physical exam findings. Advised supportive measures and signs/symptoms to go to the ER. Pt is appropriate for outpt treatment and f/u. 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 No acute osseous abnormality. Critical Care Time Critical Care Time Critical Care Time: No Discharge Plan Discharge Clinical Impression: Chronic fracture Left shoulder pain Qualifiers: Chronicity: acute Qualified Code(s): M25.512 - Pain in left shoulder Fall Qualifiers: Encounter type: initial encounter Qualified Code(s): W19.XXXA - Unspecified fall, initial encounter Patient Disposition: Home Condition: Stable Instructions: Shoulder Pain (ED) Additional Instructions: The x-ray of your left shoulder shows no evidence of acute fractures or findings. It does show a chronic fracture to the distal end of your clavicle and some arthritis changes. Please follow-up with your orthopedist in 3-5 days for further evaluation and management. Rest and elevate the arm; wear sling for comfort Apply ice 15-20 minute intervals several times a day You may take Tylenol as needed for pain. Follow up with your primary care provider as needed in 1-2 weeks Please go to ER if he develops any severe headaches, vision changes, dizziness, lightheadedness, you lose consciousness, chest pain, breathing problems, or any other concerns. Patient Language: [place] Islander Prescriptions: No Action latanoprost 0.005 % drops See Rx Instructions .ROUTE .COMPLEX Rx Instructions: as prescribed levothyroxine 100 mcg tablet 100 tablet PO DAILY pravastatin 10 mg tablet 10 tablet PO DAILY ascorbic acid (vitamin C) 100 mg Tablet 100 mg PO DAILY cholecalciferol (vitamin D3) 10 mcg (400 unit) Tablet 10 mcg PO DAILY omega 6-jhd-sql-fish oil 1,000 mg (120 mg-180 mg) capsule 1 cap PO DAILY vitamin E 268 mg (400 unit) Capsule 268 mg PO DAILY metoprolol succinate 25 mg tablet extended release 24 hr PO zinc vitamin A B-12 Compliance cefuroxime axetil 250 mg tablet 250 mg PO BID Qty: 14 0RF nitrofurantoin monohyd/m-cryst [Macrobid] 100 mg capsule 100 mg PO Q12H 5 Days Qty: 10 0RF losartan 25 mg tablet 25 mg PO BID metoprolol succinate PO amiodarone PO Xarelto 20 mg tablet 20 mg PO DAILY Rx Instructions: must administer with evening meal Follow-up/Referrals: Wu Hernandes MD [Physician] - PHYSICIAN NOT ON STAFF,NONSTAFF [Primary Care Provider] - Time of Disposition: 12:24
== END 2025-04-03 12:28 | disposition home or self-care (01) ==
DX: M25.512 Pain in left shoulder (principal); M84.419A Pathological fracture, unspecified shoulder, initial encounter for fracture; I48.91 Unspecified atrial fibrillation; E03.9 Hypothyroidism, unspecified; I10 Essential (primary) hypertension; Z79.01 Long term (current) use of anticoagulants; W18.30XA Fall on same level, unspecified, initial encounter
CPT/HCPCS: 73030; 99213; G0463